=== PATIENT | female | born 1960 | race Caucasian/White ===

== ENCOUNTER 2017-06-16 13:00 | Observation (INO) | payer MEDICARE, OTHER ==
[2017-06-16] MEDS ORDERED: ASPIRIN 81 MG TABLET, CHEWABLE PO ONE (13:25)
[2017-06-16 13:50] LABS: ABSOLUTE EOSINOPHILS # (AUTO) 0.1 10^3/uL (0.0-0.6); ABSOLUTE LYMPHOCYTES (AUTO) 1.7 10^3/uL (0.5-4.7); ABSOLUTE MONOCYTES (AUTO) 0.4 10^3/uL (0.1-1.4); ABSOLUTE NEUT (AUTO) 3.3 10^3/uL (1.7-8.2); BASOPHILS % (AUTO) 0.8 % (0-2); EOSINOPHILS % (AUTO) 1.6 % (0-6); HEMATOCRIT 37.4 % (36.0-47.0); HGB HCT DIFFERENCE 1.6; LYMPHOCYTES % (AUTO) 30.9 % (13-45); MEAN CORPUSCULAR HEMOGLOBIN 31.3 pg (27.0-33.4); MEAN CORPUSCULAR HGB CONC 34.8 g/dL (32.0-36.0); MEAN CORPUSCULAR VOLUME 90 fl (80-97); MONOCYTES % (AUTO) 6.6 % (3-13); RED BLOOD COUNT 4.17 10^6/uL (3.72-5.28); RED CELL DISTRIBUTION WIDTH 12.6 % (11.5-14.0); SEGMENTED NEUTROPHILS % (AUTO) 60.1 % (42-78); WHITE BLOOD COUNT 5.6 10^3/uL (4.0-10.5)
[2017-06-16 14:02] LABS: ALANINE AMINOTRANSFERASE 21 U/L (9-52); ALKALINE PHOSPHATASE 125 U/L (38-126); ANION GAP 8 (5-19); ASPARTATE AMINO TRANSFERASE 21 U/L (14-36); BILIRUBIN,DIRECT 0.3 mg/dL (0.0-0.4); BILIRUBIN,TOTAL 1.4 mg/dL (0.2-1.3); BLOOD UREA NITROGEN 9 mg/dL (7-20); CALCIUM 9.4 mg/dL (8.4-10.2); CARBON DIOXIDE 26 mmol/L (22-30); CHLORIDE 105 mmol/L (98-107); CREATINE KINASE 48 U/L (30-135); GLUCOSE 90 mg/dL (75-110); SODIUM 138.8 mmol/L (137-145); TOTAL PROTEIN 7.3 g/dL (6.3-8.2)
--- NOTE | 2017-06-16 14:02 | RADIOLOGY REPORT (SQ) ---
EXAM DESCRIPTION: CHEST SINGLE VIEW COMPLETED DATE/TIME: 06/16/2017 1:45 pm REASON FOR STUDY: pain COMPARISON: None. EXAM PARAMETERS: NUMBER OF VIEWS: One view. TECHNIQUE: Single frontal radiographic view of the chest acquired. RADIATION DOSE: NA LIMITATIONS: None. FINDINGS: LUNGS AND PLEURA: No opacities, masses or pneumothorax. No pleural effusion. MEDIASTINUM AND HILAR STRUCTURES: Retrocardiac hiatal hernia. Hilar Contour normal. HEART AND VASCULAR STRUCTURES: Heart normal in size. Normal vasculature. BONES: No acute findings. HARDWARE: Clips right upper quadrant post cholecystectomy OTHER: No other significant finding. IMPRESSION: NO ACUTE RADIOGRAPHIC FINDING IN THE CHEST. TECHNICAL DOCUMENTATION: JOB ID: [id number]
[2017-06-16 14:15] LABS: CREATINE KINASE MB < 0.22 ng/mL (<4.55); TROPONIN I < 0.012 ng/mL
--- NOTE | 2017-06-16 15:08 | ER Document Report ---
ED General - General Chief Complaint: Chest Pain Stated Complaint: ARM PAIN Time Seen by Provider: 06/16/17 13:45 Mode of Arrival: Ambulatory Information source: Patient Notes: 57 yr old female presents wiht hx of NV after epi was given IV in 2012 with no cardiac intervention post cath presents with left sided chest achiness down the left arm of 3 day duraiton. symptoms not improved with alleve , not worsend with movement TRAVEL OUTSIDE OF THE [place] IN LAST 30 DAYS: No - HPI Onset: Other Onset/Duration: Persistent Quality of pain: Achy Severity: Mild Pain Level: 1 Associated symptoms: Chest pain Exacerbated by: Denies Relieved by: Denies Similar symptoms previously: No Recently seen / treated by doctor: No - Related Data Allergies/Adverse Reactions: codeine Allergy (Verified 06/16/17 13:05) hydromorphone [From Dilaudid] Allergy (Verified 06/16/17 13:05) morphine Allergy (Verified 06/16/17 13:05) polyethylene glycol [From Golytely] Allergy (Verified 06/16/17 13:05) polyethylene glycol 3350 [From Golytely] Allergy (Verified 06/16/17 13:05) potassium chloride [From Golytely] Allergy (Verified 06/16/17 13:05) sodium [From Golytely] Allergy (Verified 06/16/17 13:05) sodium bicarbonate [From Golytely] Allergy (Verified 06/16/17 13:05) sodium chloride [From Golytely] Allergy (Verified 06/16/17 13:05) sodium sulfate [From Golytely] Allergy (Verified 06/16/17 13:05) tramadol Allergy (Verified 06/16/17 13:05) Home Medications: Current Home Medications Aripiprazole [Abilify 5 mg Tablet] 5 mg PO DAILY 06/16/17 [History] Benztropine Mesylate 1 mg PO DAILY 06/16/17 [History] Bupropion HCl [Wellbutrin Xl 150 mg 24hr Tablet] 1 tab PO DAILY 06/16/17 [ History] Esomeprazole Magnesium [Nexium] 40 mg PO DAILY 06/16/17 [History] Zolpidem Tartrate [Ambien] 10 mg PO QHS 06/16/17 [History] Past Medical History - Social History Smoking Status: Never Smoker Cigarette use (# per day): No Chew tobacco use (# tins/day): No Smoking Education Provided: No Family History: Reviewed & Not Pertinent - Past Medical History Cardiac Medical History: Reports: Hx Heart Attack Renal/ Medical History: Denies: Hx Peritoneal Dialysis Review of Systems - Review of Systems Notes: REVIEW OF SYSTEMS: CONSTITUTIONAL : Denies fever, chills, or sweats. Denies recent illness. EENT: Denies eye, ear, throat, or mouth pain or symptoms. Denies nasal or sinus congestion or discharge. Denies throat, tongue, or mouth swelling or difficulty swallowing. CARDIOVASCULAR: Admits to chest pain RESPIRATORY: Denies cough, cold, or chest congestion. Denies shortness of breath, difficulty breathing, or wheezing. GASTROINTESTINAL: Denies abdominal pain or distention. Denies nausea, vomiting , or diarrhea. Denies blood in vomitus, stools, or per rectum. Denies black, tarry stools. Denies constipation. GENITOURINARY: Denies difficulty urinating, painful urination, burning, frequency, blood in urine, or discharge. FEMALE GENITOURINARY: Denies vaginal bleeding, heavy or abnormal periods, irregular periods. Denies vaginal discharge or odor. MUSCULOSKELETAL: Denies back or neck pain or stiffness. Denies joint pain or swelling. SKIN: Denies rash, lesions or sores. HEMATOLOGIC : Denies easy bruising or bleeding. LYMPHATIC: Denies swollen, enlarged glands. NEUROLOGICAL: Denies confusion or altered mental status. Denies passing out or loss of consciousness. Denies dizziness or lightheadedness. Denies headache. Denies weakness or paralysis or loss of use of either side. Denies problems with gait or speech. Denies sensory loss, numbness, or tingling. Denies seizures. PSYCHIATRIC: Denies anxiety or stress. Denies depression, suicidal ideation, or homicidal ideation. ALL OTHER SYSTEMS REVIEWED AND NEGATIVE. PHYSICAL EXAMINATION: GENERAL: Well-appearing, well-nourished and in no acute distress. HEAD: Atraumatic, normocephalic. EYES: Pupils equal round and reactive to light, extraocular movements intact, conjunctiva are normal. ENT: Nares patent, oropharynx clear without exudates. Moist mucous membranes. NECK: Normal range of motion, supple without lymphadenopathy LUNGS: Breath sounds clear to auscultation bilaterally and equal. No wheezes rales or rhonchi. HEART: Regular rate and rhythm without murmurs ABDOMEN: Soft, nontender, nondistended abdomen. No guarding, no rebound. No masses appreciated. Female : deferred Musculoskeletal: Normal range of motion, no pitting or edema. No cyanosis. NEUROLOGICAL: Cranial nerves grossly intact. Normal speech, normal gait. Normal sensory, motor exams PSYCH: Normal mood, normal affect. SKIN: Warm, Dry, normal turgor, no rashes or lesions noted. Dictation was performed using [employer] voice recognition software Physical Exam - Vital signs Vitals: Temp Pulse Resp BP Pulse Ox 98.4 F 76 14 121/78 97 06/16/17 13:03 06/16/17 13:03 06/16/17 13:03 06/16/17 13:03 06/16/17 13:03 Course - Re-evaluation Re-evalutation: 06/16/17 15:12 For set of cardiac enzymes EKG lab work note no significant abnormality, patient will be observed overnight for ACS rule out - Vital Signs Vital signs: Temp Pulse Resp BP Pulse Ox 98.4 F 76 14 121/78 94 06/16/17 13:03 06/16/17 13:03 06/16/17 13:03 06/16/17 13:03 06/16/17 14:04 - Laboratory Result Diagrams: 06/16/17 13:36 06/16/17 13:36 Laboratory results interpreted by me: 06/16/17 13:36 Total Bilirubin 1.4 H - Diagnostic Test Radiology reviewed: Image reviewed, Reports reviewed - EKG Interpretation by Ma EKG shows normal: Sinus rhythm, Intervals, QRS Complexes, ST-T Waves Discharge - Discharge Clinical Impression: Chest pain Qualifiers: Chest pain type: unspecified Qualified Code(s): R07.9 - Chest pain, unspecified Condition: Stable Disposition: ADMITTED OBSERVATION Admitting Provider: Hospitalist Unit Admitted: Telemetry Referrals: MELVA GUDINO MD [Primary Care Provider] - Follow up as needed
[2017-06-16] MEDS ORDERED: MAG HYDROX/AL HYDROX/SIMETH SUSP 30 ML UDCUP PO PRN (16:14)
[2017-06-16] MEDS ORDERED: NITROGLYCERIN 0.4 MG/TAB 25 TAB/BOTTLE SL PRN (16:14)
[2017-06-16] MEDS ORDERED: DIAZEPAM 5 MG TABLET PO PRN (16:14)
[2017-06-16] MEDS ORDERED: ONDANSETRON 4 MG TAB.RAPDIS PO PRN (16:14)
--- NOTE | 2017-06-16 16:40 | PDOC H&P ---
History of Present Illness Admission Date/PCP: 06/16/17 15:20 MELVA GUDINO MD History of Present Illness: ZAHRA PETERSON is a 57 year old female with a past medical history significant for a stress-induced VT, PTSD, hiatal hernia who presents to the emergency department with approximately 3 days of achy chest pain. Patient reports that it is underneath her left breast and radiates to her left arm. She reports no associated shortness of breath, diaphoresis. patient did report an episode of nausea and vomiting yesterday with this. She reports that there are no aggravating or alleviating factors. She reports she took several Aleve but did not have any improvement of her pain. She denies any metallic taste in her mouth. She reports taking Nexium daily for GERD. She is referred to hospital service for chest pain. Past Medical History Cardiac Medical History: Reports: Myocardial Infarction Pulmonary Medical History: Reports: Sleep Apnea Psychiatric Medical History: Reports: Post Traumatic Stress Disorder Past Surgical History Past Surgical History: Reports: Appendectomy, Cholecystectomy, Orthopedic Surgery, Other - Panniculectomy, carpal tunnel 2, shoulder surgery 2, bladder sling, spine Social History Smoking Status: Never Smoker - Advance Directive Resuscitation Status: Full Code Surrogate healthcare decision maker:: Angel Peterson, Family History Family History: CAD, DM Parental Family History Reviewed: Yes Children Family History Reviewed: Yes Sibling(s) Family History Reviewed.: Yes Medication/Allergy Home Medications: Aripiprazole [Abilify 5 mg Tablet] 5 mg PO DAILY 06/16/17 Benztropine Mesylate 1 mg PO DAILY 06/16/17 Bupropion HCl [Wellbutrin Xl 150 mg 24hr Tablet] 1 tab PO DAILY 06/16/17 Esomeprazole Magnesium [Nexium] 40 mg PO DAILY 06/16/17 Zolpidem Tartrate [Ambien] 10 mg PO QHS 06/16/17 Allergies/Adverse Reactions: codeine Allergy (Verified 06/16/17 13:05) hydromorphone [From Dilaudid] Allergy (Verified 06/16/17 13:05) morphine Allergy (Verified 06/16/17 13:05) polyethylene glycol [From Golytely] Allergy (Verified 06/16/17 13:05) polyethylene glycol 3350 [From Golytely] Allergy (Verified 06/16/17 13:05) potassium chloride [From Golytely] Allergy (Verified 06/16/17 13:05) sodium [From Golytely] Allergy (Verified 06/16/17 13:05) sodium bicarbonate [From Golytely] Allergy (Verified 06/16/17 13:05) sodium chloride [From Golytely] Allergy (Verified 06/16/17 13:05) sodium sulfate [From Golytely] Allergy (Verified 06/16/17 13:05) tramadol Allergy (Verified 06/16/17 13:05) Review of Systems Constitutional: PRESENT: chills, fatigue. ABSENT: fever(s), headache(s), weight gain, weight loss Eyes: ABSENT: visual disturbances Ears: ABSENT: hearing changes Cardiovascular: PRESENT: chest pain. ABSENT: dyspnea on exertion, edema, orthropnea, palpitations Respiratory: PRESENT: cough, sputum. ABSENT: dyspnea, hemoptysis Gastrointestinal: PRESENT: heartburn, nausea, vomiting. ABSENT: abdominal pain , constipation, diarrhea, hematemesis, hematochezia, melena Genitourinary: ABSENT: dysuria, hematuria Musculoskeletal: ABSENT: joint swelling Integumentary: ABSENT: rash, wounds Neurological: ABSENT: abnormal gait, abnormal speech, confusion, dizziness, focal weakness, syncope Psychiatric: ABSENT: anxiety, depression, homidical ideation, suicidal ideation Endocrine: ABSENT: cold intolerance, heat intolerance, polydipsia, polyuria Hematologic/Lymphatic: ABSENT: easy bleeding, easy bruising Physical Exam Vital Signs: Temp Pulse Resp BP Pulse Ox 98.4 F 76 17 110/74 98 06/16/17 13:03 06/16/17 13:03 06/16/17 16:01 06/16/17 16:00 06/16/17 16:01 General appearance: PRESENT: obese, well-developed, well-nourished Head exam: PRESENT: atraumatic, normocephalic Eye exam: PRESENT: conjunctiva pink, EOMI, PERRLA. ABSENT: scleral icterus Ear exam: PRESENT: normal external ear exam Mouth exam: PRESENT: moist, tongue midline Neck exam: ABSENT: JVD, lymphadenopathy, thyromegaly, tracheal deviation Respiratory exam: PRESENT: clear to auscultation ana rosa, symmetrical, unlabored. ABSENT: crackles, rales, rhonchi, tachypnea, wheezes Cardiovascular exam: PRESENT: RRR, +S1, +S2. ABSENT: diastolic murmur, rubs, systolic murmur Pulses: PRESENT: normal dorsalis pedis pul Vascular exam: PRESENT: normal capillary refill GI/Abdominal exam: PRESENT: normal bowel sounds, soft. ABSENT: distended, firm , guarding, mass, Lowery's sign, organolmegaly, rebound, rigid, tenderness Rectal exam: PRESENT: deferred Extremities exam: PRESENT: full ROM. ABSENT: calf tenderness, clubbing, pedal edema Neurological exam: PRESENT: alert, awake, oriented to person, oriented to place , oriented to time, oriented to situation, CN II-XII grossly intact. ABSENT: motor sensory deficit Psychiatric exam: PRESENT: appropriate affect, normal mood. ABSENT: homicidal ideation, suicidal ideation Skin exam: PRESENT: dry, intact, warm. ABSENT: cyanosis, rash Results Laboratory Results: 06/16/17 06/16/17 06/16/17 13:36 13:36 13:36 WBC 5.6 Hgb 13.0 Potassium 4.0 BUN 9 Creatinine 0.80 Total Bilirubin 1.4 H Troponin I < 0.012 Impressions: Chest X-Ray 06/16/17 13:25 IMPRESSION: NO ACUTE RADIOGRAPHIC FINDING IN THE CHEST. Assessment & Plan - Diagnosis (1) Chest pain Qualifiers: Chest pain type: unspecified Qualified Code(s): R07.9 - Chest pain, unspecified Is this a current diagnosis for this admission?: Yes Plan: Place on telemetry and preform serial cardiac enzymes. Obtain CTA to rule out PE Suspect possible pneumonia or musculoskeletal cause of chest pain As patient is caring for her who has advanced cancer. Stress is also a consideration. Obtain FLP. (2) PTSD (post-traumatic stress disorder) Is this a current diagnosis for this admission?: Yes Plan: Continue patient's home psychiatric medications (3) Hiatal hernia Is this a current diagnosis for this admission?: Yes Plan: Continue PPI (4) RAFAEL (obstructive sleep apnea) Is this a current diagnosis for this admission?: Yes Plan: Patient may use own cpap (5) GERD (gastroesophageal reflux disease) Qualifiers: Esophagitis presence: esophagitis presence not specified Qualified Code(s) : K21.9 - Gastro-esophageal reflux disease without esophagitis Is this a current diagnosis for this admission?: Yes - Time Time Spent: 30 to 50 Minutes Medications reviewed and adjusted accordingly: Yes Anticipated discharge: Home Within: within 24 hours
--- NOTE | 2017-06-16 17:19 | RADIOLOGY REPORT (SQ) ---
EXAM DESCRIPTION: CT CHEST WITHOUT COMPLETED DATE/TIME: 06/16/2017 5:10 pm REASON FOR STUDY: chest pain, E78.4 OTHER HYPERLIPIDEMIA COMPARISON: None. TECHNIQUE: CT scan performed of the chest without intravenous contrast. Images reviewed with lung, soft tissue and bone windows. Reconstructed coronal and sagittal MPR images reviewed. All images st ored on PACS. All CT scanners at this facility use dose modulation, iterative reconstruction, and/or weight based d osing when appropriate to reduce radiation dose to as low as reasonably achievable (ALARA). [facility]: Dose Right [facility]: CareDose [facility]: Dose Right [facility]: Teradose 4D [facility]: Smart Onset Technology RADIATION DOSE: Up-to-date CT equipment and radiation dose reduction techniques were employed. CTDIv ol: 17.3 mGy. DLP: 703 mGy-cm. mGy. LIMITATIONS: No technical limitations. FINDINGS: LUNGS AND PLEURA: No masses, infiltrates, pneumothorax. No pleural effusions, calcificati ons. HILAR AND MEDIASTINAL STRUCTURES: No identified masses or abnormal nodes. No obvious aneurysm. HEART AND VASCULAR STRUCTURES: No aneurysm. No pericardial effusion. UPPER ABDOMEN: No significant findings. Limited exam. THYROID AND OTHER SOFT TISSUES: No masses. No adenopathy. BONES: No significant finding. HARDWARE: None in the chest. OTHER: There is a hiatal hernia. IMPRESSION: NO SIGNIFICANT FINDING ON NON-CONTRASTED CHEST CT. TECHNICAL DOCUMENTATION: JOB ID: [id number] Quality ID # [id number]: Final reports with documentation of one or more dose reduction techniques (e.g., Au tomated exposure control, adjustment of the mA and/or kV according to patient size, use of iterative reconstruction technique) 2010 [employer]- All Rights Reserved
[2017-06-16] MEDS: METOPROLOL TARTRATE PF/INJ 5 MG/5 ML SDV IV PRN ×2 (18:39→18:48)
[2017-06-16] MEDS ORDERED: METOPROLOL TARTRATE PF/INJ 5 MG/5 ML SDV IV PRN (18:51)
[2017-06-16] MEDS: LANSOPRAZOLE 30 MG TAB.RAP.DR PO SCH (18:52)
[2017-06-16 20:38] LABS: CREATINE KINASE MB < 0.22 ng/mL (<4.55); TROPONIN I < 0.012 ng/mL
[2017-06-16] MEDS ORDERED: ATORVASTATIN CALCIUM 40 MG TABLET PO SCH (22:00)
[2017-06-16] MEDS ORDERED: ZOLPIDEM TARTRATE 5 MG TABLET PO SCH (22:00)
[2017-06-16 23:16] LABS: CREATINE KINASE MB < 0.22 ng/mL (<4.55); TROPONIN I < 0.012 ng/mL
[2017-06-17 05:10] LABS: CHOLESTEROL 169.71 mg/dL (0-200); CREATINE KINASE 36 U/L (30-135); Direct HDL 36 mg/dL (>40); TRIGLYCERIDES 111 mg/dL (<150)
[2017-06-17 05:21] LABS: DIRECT LDL 108 mg/dL (<100)
[2017-06-17 05:26] LABS: CREATINE KINASE MB < 0.22 ng/mL (<4.55); TROPONIN I < 0.012 ng/mL
[2017-06-17] MEDS: LANSOPRAZOLE 30 MG TAB.RAP.DR PO SCH (06:36)
[2017-06-17] MEDS ORDERED: NORMAL SALINE 1000 ML 1,000 ML IV ONE (07:21)
--- NOTE | 2017-06-17 07:44 | EKG REPORT ---
SEVERITY:- NORMAL ECG - SINUS RHYTHM : Confirmed by: Adolfo Salinas MD 17-Jun-2017 07:44:00
--- NOTE | 2017-06-17 07:45 | EKG REPORT ---
SEVERITY:- NORMAL ECG - SINUS RHYTHM : Confirmed by: Adolfo Salinas MD 17-Jun-2017 07:44:10
[2017-06-17] MEDS ORDERED: BENZTROPINE MESYLATE 1 MG TABLET PO SCH (10:00)
[2017-06-17] MEDS ORDERED: (PENDING PHARMACY ID) (Bupropion Hcl [Wellbutrin Xl 150 Mg 24hr Tablet] 1 TAB) PO SCH (10:00)
[2017-06-17] MEDS ORDERED: BUPROPION HCL 75 MG TABLET PO SCH (10:00)
[2017-06-17] MEDS ORDERED: ASPIRIN 325 MG TABLET, ENT COATED PO SCH (10:00)
[2017-06-17] MEDS ORDERED: ARIPIPRAZOLE 5 MG TABLET PO SCH (10:00)
[2017-06-17 11:11] VITALS: BP 114/76
--- NOTE | 2017-06-17 16:27 | PDOC DISCHARGE SUMMARY ---
General - Admit/Disc Date/PCP Admission Date/Primary Care Provider: 06/16/17 16:14 MELVA GUDINO MD Discharge Date: 06/17/17 - Discharge Diagnosis (1) Chest pain Is this a current diagnosis for this admission?: Yes (2) PTSD (post-traumatic stress disorder) Is this a current diagnosis for this admission?: Yes (3) Hiatal hernia Is this a current diagnosis for this admission?: Yes (4) RAFAEL (obstructive sleep apnea) Is this a current diagnosis for this admission?: Yes (5) GERD (gastroesophageal reflux disease) Is this a current diagnosis for this admission?: Yes (6) Morbid (severe) obesity due to excess calories Is this a current diagnosis for this admission?: Yes - Additional Information Resuscitation Status: Full Code Discharge Diet: Cardiac Discharge Activity: Activity As Tolerated Home Medications: Esomeprazole Magnesium [Nexium] 40 mg PO DAILY 06/16/17 Aripiprazole [Abilify 5 mg Tablet] 5 mg PO DAILY tablet 06/17/17 Atorvastatin Calcium [Lipitor 40 mg Tablet] 40 mg PO QHS #30 tablet 06/17/17 Benztropine Mesylate [Cogentin 1 mg Tablet] 1 mg PO DAILY tablet 06/17/17 Bupropion HCl [Wellbutrin Xl 150 mg 24hr Tablet] 1 tab PO DAILY 06/17/17 Zolpidem Tartrate [Ambien 5 mg Tablet] 10 mg PO QHS tablet 06/17/17 History of Present Illness History of Present Illness: ZAHRA MCGOWAN is a 57 year old female with a past medical history significant for a stress-induced LA, PTSD, hiatal hernia who presents to the emergency department with approximately 3 days of achy chest pain. Patient reports that it is underneath her left breast and radiates to her left arm. She reports no associated shortness of breath, diaphoresis. patient did report an episode of nausea and vomiting yesterday with this. She reports that there are no aggravating or alleviating factors. She reports she took several Aleve but did not have any improvement of her pain. She denies any metallic taste in her mouth. She reports taking Nexium daily for GERD. She is referred to hospital service for chest pain. Hospital Course Hospital Course: Patient had no worsening of her chest pain. Observed for ACS and ruled out with 4 sets of negative enzymes. Reports she feels better after a good nights sleep. CTA negative for PE or pleural process. Have advised her to increase her nexium to bid and follow with her PCP re: anxiety and possible UGI workup and stress test. Physical Exam Vital Signs: Temp Pulse Resp BP Pulse Ox 98.0 F 74 21 H 114/76 99 06/17/17 11:09 06/17/17 11:09 06/17/17 11:09 06/17/17 11:09 06/17/17 11:09 Intake & Output 06/16/17 06/17/17 06/18/17 06:59 06:59 06:59 Intake Total 366 Output Total 0 Balance 366 Weight 107.2 kg Exam: General: Awake alert and oriented x3, no acute respiratory distress HEENT: AT/NC, PERRL, EOMI, oropharynx is moist, pink, no scleral icterus, no conjunctival injection Neck: No JVD, trachea midline Chest: Clear to auscultation bilaterally, no wheezes rhonchi or rales CV: Regular rate and rhythm, normal S1 and S2, no murmur, rub, or gallop Abdomen: Soft, nontender to palpation, nondistended, active bowel sounds; no rebound, rigidity, or guarding Extremities: No cyanosis, clubbing or edema Neuro: Cranial nerves II through XII are grossly intact without focal deficits; awake alert and oriented x3 Psych: Normal mood and affect Results Laboratory Results: 06/17/17 04:45 Triglycerides 111 Cholesterol 169.71 LDL Cholesterol Direct 108 H VLDL Cholesterol 22.0 HDL Cholesterol 36 L 06/16/17 06/16/17 06/17/17 19:45 22:45 04:45 Creatine Kinase CK-MB (CK-2) < 0.22 < 0.22 < 0.22 Troponin I < 0.012 < 0.012 < 0.012 06/17/17 04:45 Creatine Kinase 36 CK-MB (CK-2) Troponin I Impressions: Chest CT 06/16/17 00:00 IMPRESSION: NO SIGNIFICANT FINDING ON NON-CONTRASTED CHEST CT. Chest X-Ray 06/16/17 13:25 IMPRESSION: NO ACUTE RADIOGRAPHIC FINDING IN THE CHEST. Qualifiers PATEINT BEING DISCHARGED WITH ANY OF THE FOLLOWING DIAGNOSIS?: No Plan Time Spent: Less than 30 Minutes
== END 2017-06-17 11:28 | disposition home or self-care (01) ==
LOC: ER 13:00 → UNDOADMOB 15:20 → EH 15:20 → 3N 16:40
PROVIDERS: ADMIT Family Medicine; ATTEND Family Medicine
DX: R07.9 Chest pain, unspecified (principal); F43.10 Post-traumatic stress disorder, unspecified; K44.9 Diaphragmatic hernia without obstruction or gangrene; G47.33 Obstructive sleep apnea (adult) (pediatric); K21.9 Gastro-esophageal reflux disease without esophagitis; E66.01 Morbid (severe) obesity due to excess calories; R11.2 Nausea with vomiting, unspecified; I25.2 Old myocardial infarction; Z68.38 Body mass index [BMI] 38.0-38.9, adult; Z79.899 Other long term (current) drug therapy; Z90.49 Acquired absence of other specified parts of digestive tract; Z82.49 Family history of ischemic heart disease and other diseases of the circulatory system; Z98.890 Other specified postprocedural states
CPT/HCPCS: 93005 ×2; 99285; 36415 ×2; 82553 ×2; 82550 ×2; 85025; 80053; 84484 ×2; 80061; 71010; 71250; 93010 ×2; G0378 ×2; A9270 ×7; J3490 ×2; J7030; S0119

== ENCOUNTER 2017-07-10 09:30 | Day surgery (SDC) | payer MEDICARE, OTHER ==
[~2017-07-10 09:30] MED LIST: DIPHENHYDRAMINE HCL 50 MG/ML VIAL ONE; EPINEPHRINE INJ 1 MG/10 ML DISP.SYRIN ONE; FLUMAZENIL INJ 0.5 MG/5 ML VIAL ONE; GLUCAGON,HUMAN RECOMB 1 MG INJ ONE; NALOXONE HCL INJ/PF 0.4 MG/1 ML SDV ONE; ONDANSETRON HCL INJ/PF 4 MG/2 ML SDV ONE
[2017-07-10] MEDS: MIDAZOLAM 2 MG/2 ML INJ ONE ×3 (09:58→10:06)
[2017-07-10] MEDS: FENTANYL CITRATE INJ/PF 100 MCG/2 ML AMPUL ONE ×2 (10:00→10:04)
--- NOTE | 2017-07-10 10:16 | Operative Report ---
Operative Report DATE OF SURGERY: 07/10/17 Operative Report: The risks benefits and alternatives of the procedure explained to the patient in detail and informed consent is obtained.A GIF Olympus video scope was inserted into the patient's mouth and hypopharynx, the esophagus is identified intubated and insufflated, the scope was then advanced through the esophagus stomach and duodenum ,retroflexion maneuver is done, the esophagus stomach and first and second portions of the duodenum examined PREOPERATIVE DIAGNOSIS: Dysphagia POSTOPERATIVE DIAGNOSIS: Gastritis status post biopsy rule out Helicobacter pylori. Benign fundic gland polyps noted in the stomach. Hiatal hernia. Question possible paraesophageal hernia. Biopsies at the distal EG junction. Biopsy to break possible Schatzki's ring versus eosinophilic esophagitis OPERATION: EGD with biopsy SURGEON: TAVO DOUGLAS ANESTHESIA: Moderate Sedation - 6 mg of Versed, 100 mcg of fentanyl. Conscious sedation monitoring time 30 minutes. TISSUE REMOVED OR ALTERED: As noted above. COMPLICATIONS: None. ESTIMATED BLOOD LOSS: None. INTRAOPERATIVE FINDINGS: As described above. PROCEDURE: Patient tolerated the procedure well. No immediate postprocedure complications are noted. Patient discharged in good condition. Discharge date 07/10/2017. Discharge diet: Regular. Discharge activity: Regular. 2-3 week follow-up to discuss findings. Patient is instructed to call the office or proceed to the emergency room should there be any further problems or questions. We will wait on biopsies. May need barium swallow/upper GI series.
[2017-07-10 11:27] VITALS: BP 92/65
== END 2017-07-10 11:20 | disposition home or self-care (01) ==
LOC: END 09:30
PROVIDERS: ATTEND Internal Medicine Gastroenterology
PROC: 0DB58ZX Excision of Esophagus, Via Natural or Artificial Opening Endoscopic, Diagnostic (ICD-10-PCS; 2017-07-10)
PROC: 0DB68ZX Excision of Stomach, Via Natural or Artificial Opening Endoscopic, Diagnostic (ICD-10-PCS; principal; 2017-07-10 10:00)
DX: K29.70 Gastritis, unspecified, without bleeding (principal); K44.9 Diaphragmatic hernia without obstruction or gangrene; K31.7 Polyp of stomach and duodenum; R07.9 Chest pain, unspecified; Z79.82 Long term (current) use of aspirin; Z79.899 Other long term (current) drug therapy
CPT/HCPCS: 43239; 88305 ×2; J2250; J3010; J0171; J1200; J1610; J2310; J2405; J3490

== ENCOUNTER → 2017-09-14 | Outpatient (CLI) | payer MEDICARE, OTHER ==
--- NOTE | 2017-09-14 10:57 | RADIOLOGY REPORT (SQ) ---
EXAM DESCRIPTION: UGI SERIES COMPLETED DATE/TIME: 09/14/2017 9:11 am REASON FOR STUDY: BASW DIAPHRAGMATIC HERNIA WITH OBSTRUCTION, WITHOUT GANGRENE (K44.0) K44.0 DI APHRAGMATIC HERNIA WITH OBSTRUCTION, WITHOUT GANGREN COMPARISON: CT chest 06/16/2017 TECHNIQUE: Under fluoroscopic guidance, patient ingested effervescent granules followed by thick and thin barium. Fluoroscopic spot images and routine radiographic images acquired and stored on PACS. 12 MM BARIUM TABLET GIVEN: Yes. LIMITATIONS: None. FLUOROSCOPY TIME: FLUORO TIME: 1.1 minutes 24 series of digital images saved to PACS. FINDINGS: NEUROMUSCULAR COORDINATION OF SWALLOW: Normal. No aspiration. ESOPHAGEAL MOTILITY: Normal peristalsis. Occasional tertiary contractions of the esophagus. ESOPHAGEAL MUCOSA: Normal mucosa without masses or ulceration. GASTRO-ESOPHAGEAL JUNCTION: There is a a a large hiatal hernia containing the stomach fundus. Unprov oked gastroesophageal reflux to the mid esophagus. No Schatzki's ring or distal esophageal stricture . 12 mm barium tablet passes through the distal esophagus into the fundal pouch, and then into the s tomach without delay. STOMACH: Normal without masses or ulcerations. GASTRIC OUTLET: No delay in emptying. Normal pylorus. DUODENAL BULB: Normal distention. No spasm or ulceration. DUODENUM: Mucosa normal. No extrinsic masses or malrotation. PROXIMAL SMALL BOWEL: Mucosa normal. No extrinsic masses or malrotation. NON-GI TRACT STRUCTURES: Clips right upper quadrant post cholecystectomy. Bones osteopenic without t horacic compression deformity. OTHER: No other significant finding. IMPRESSION: Large retrocardiac hiatal hernia containing the stomach fundus. Gastroesophageal reflux to the mid 3rd of the esophagus. No Schatzki's ring or distal esophageal stricture. Occasional tertiary contractions of the esophagus COMMENT: Quality ID [id number]: Final reports for procedures using fluoroscopy that document radiation exp osure indices, or exposure time and number of fluorographic images (if radiation exposure indices are not available) TECHNICAL DOCUMENTATION: JOB ID: [id number] [employer]- All Rights Reserved
== END ==
LOC: RAD 07:08
PROVIDERS: ATTEND Internal Medicine Gastroenterology
DX: K44.9 Diaphragmatic hernia without obstruction or gangrene (principal); K21.9 Gastro-esophageal reflux disease without esophagitis
CPT/HCPCS: 74247

== ENCOUNTER 2018-04-24 08:43 | Day surgery (SDC) | payer MEDICARE, OTHER ==
[2018-04-24] MEDS ORDERED: PROPOFOL INJ 200 MG/20 ML VIAL IV ONE (11:37)
--- NOTE | 2018-04-24 13:01 | Operative Report ---
Operative Report DATE OF SURGERY: 04/24/18 Operative Report: The risks, benefits and alternatives of the procedure including risks of bleeding, perforation requiring surgery are explained to the patient in detail and informed consent is obtained. The patient was placed in the left, lateral decubital position. Timeout was called. Propofol medication is administered. A rectal examination is done which did not reveal any masses, tears or fissures. An Olympus videoscope was inserted into the patient's rectum. The scope was then carefully advanced all the way to the cecum. The cecum was identified by the usual anatomical landmarks including the ileocecal valve as well as the appendiceal office. Photodocumentation is obtained. The scope was then sequentially pulled back via the various segments of the colon including the ascending colon, hepatic flexure, transverse colon, splenic flexure, descending colon and finally into the rectosigmoid portions of the colon. Retroflexion maneuvers performed. The risks benefits and alternatives of the procedure explained to the patient in detail and informed consent is obtained.A GIF Olympus video scope was inserted into the patient's mouth and hypopharynx, the esophagus is identified intubated and insufflated, the scope was then advanced through the esophagus stomach and duodenum ,retroflexion maneuver is done, the esophagus stomach and first and second portions of the duodenum examined PREOPERATIVE DIAGNOSIS: Previous paraesophageal hernia that has been repaired patient with left upper quadrant pain. Change in bowel habits surveillance colonoscopy. POSTOPERATIVE DIAGNOSIS: Patient has had an anastomotic site in the rectosigmoid area that appears to be normal. Right side colon biopsy status post biopsy. Repair of paraesophageal hernia now with Chayo fundoplication. Gastritis status post biopsy rule out Helicobacter pylori OPERATION: Colonoscopy with biopsy. EGD with biopsy SURGEON: TAVO DOUGLAS ANESTHESIA: LMAC TISSUE REMOVED OR ALTERED: As noted above. COMPLICATIONS: None. ESTIMATED BLOOD LOSS: None. INTRAOPERATIVE FINDINGS: As noted above. PROCEDURE: Patient tolerated the procedure well. No immediate postprocedure complications are noted. Patient discharged in good condition. Discharge date 04/24/2018. Discharge diet: Regular. Discharge activity: Regular. 2-3 week follow-up to discuss findings. Patient is instructed to call the office or proceed to the emergency room should there be any further problems or questions. Wait on the pathology.
[2018-04-24 13:48] VITALS: BP 105/60
== END 2018-04-24 13:45 | disposition home or self-care (01) ==
LOC: OROUT 08:43
PROVIDERS: ATTEND Internal Medicine Gastroenterology
DX: Z12.11 Encounter for screening for malignant neoplasm of colon (principal); Z86.010 Personal history of colon polyps; K29.50 Unspecified chronic gastritis without bleeding; K44.9 Diaphragmatic hernia without obstruction or gangrene; K21.9 Gastro-esophageal reflux disease without esophagitis; R63.4 Abnormal weight loss; Z68.31 Body mass index [BMI] 31.0-31.9, adult; Z79.899 Other long term (current) drug therapy; Z79.51 Long term (current) use of inhaled steroids
CPT/HCPCS: 43239; 45380; 88342 ×2; 88305 ×2; J2704; 813

== ENCOUNTER → 2018-05-30 | Day surgery (SDC) | payer MEDICARE, OTHER ==
--- NOTE | 2018-05-30 11:08 | RADIOLOGY REPORT (SQ) ---
EXAM DESCRIPTION: MRI LT UPPER JOINT WITH COMPLETED DATE/TIME: 05/30/2018 10:41 am REASON FOR STUDY: IMPINGEMENT SYNDROME OF THE LEFT SHOULDER M75.42 IMPINGEMENT SYNDROME OF LEFT HUNTER ULDER COMPARISON: None. TECHNIQUE: Left shoulder images acquired and stored on PACS. Oblique coronal, oblique sagittal, and axial imaging to include fat sensitive sequences as T1, water sensitive sequences as FST2/STIR, and c ontrast sensitive sequences as FST1. LIMITATIONS: None. FINDINGS: JOINT DISTENTION: Adequate distention for interpretation. There is leakage of intra-artic ular gadolinium into defect in the supraspinatus tendon, gadolinium fills the subacromial/subdeltoid bursa as well as the AC joint itself. BONE MARROW AND CORTEX: No marrow signal abnormalities worrisome for occult fracture or aggressive ma rrow replacement process. AC JOINT: Type II acromion. There is acromioclavicular joint separation, joint space measures about 1 0 to 11 mm in width. Contrast from the subacromial/subdeltoid bursa fills the AC joint on coronal im age 8. There is mild bony spurring at the AC joint with narrowing of the subacromial space. GLENOHUMERAL JOINT: No subluxation or dislocation. Mild diffuse chondromalacia with bony spurring al abigail the inferior edge of the root left humeral head articular surface. ROTATOR CUFF: Full-thickness tear in the distal supra and infraspinatus tendons at the greater tubero sity attachment, best shown on coronal images 7-11 and sagittal images 11-14. LABRUM AND BICEPS LABRAL COMPLEX: Intra-articular long head biceps tendon is diffuse which small on c oronal image 6, with postsurgical changes along the superior labrum. Remainder of the glenoid labrum is diffusely small and fragmented without significant paralabral cyst formation INFERIOR LABRAL COMPLEX: Bony glenoid and labrum intact. IGHL intact without thickening or tear. No p aralabral cysts. ADJACENT SOFT TISSUES: No masses or nodes. OTHER: No other significant finding. IMPRESSION: Full-thickness distal supra and infraspinatus tendon tear at the greater tuberosity gorge chment. No muscle atrophy. Acromioclavicular joint separation Prior long head biceps tendon and superior labral repair intact. Remainder of the glenoid labrum is diffusely small without paralabral cysts. TECHNICAL DOCUMENTATION: JOB ID: [id number] [employer]- All Rights Reserved Reading location - IP/workstation name: [email or web address]
--- NOTE | 2018-05-30 11:09 | RADIOLOGY REPORT (SQ) ---
EXAM DESCRIPTION: ARTHRO SHOULDER INJECTION; FLUORO/NEEDLE PLACEMENT COMPLETED DATE/TIME: 05/30/2018 10:15 am REASON FOR STUDY: IMPINGEMENT SYNDROME OF THE LEFT SHOULDER M75.42 IMPINGEMENT SYNDROME OF LEFT HUNTER ULDER COMPARISON: None. FLUOROSCOPY TIME: 10 seconds 1 digital radiographic image saved to PACS. LIMITATIONS: None. PROCEDURE: Procedure, risks, benefits and alternatives explained to patient who then gave written co nsent. The posterior left glenohumeral joint was marked and a time out was called for correct procedu re verification. Posterior entry site marked using fluoroscopic guidance. Shoulder prepped and drap ed using sterile technique. Local anesthesia achieved using 6 mL of 1% lidocaine injection. 22 gaug e spinal needle introduced into the joint space under direct fluoroscopic visualization. Non-ionic co ntrast instilled to confirm intra-articular position. Dilute gadolinium solution then injected. Need le removed and entry site covered with sterile bandage. No immediate complications noted. TECHNIQUE: Digital images acquired during fluoroscopy and stored on PACS. Patient immediately take n to the MR suite for additional imaging. INJECTION LOCATION: Posterior left glenohumeral joint CONTRAST TYPE AND AMOUNT: 1 mL of Isovue-300 was injected to confirm intra-articular needle placement followed by 10 mL of dilute Prohance/Saline mixture. IMPRESSION: SUCCESSFUL NEEDLE PLACEMENT AND INJECTION FOR LEFT SHOULDER MR ARTHROGRAM USING POSTERIO R APPROACH. COMMENT: Quality ID 145: Final reports for procedures using fluoroscopy that document radiation exp osure indices, or exposure time and number of fluorographic images (if radiation exposure indices are not available) TECHNICAL DOCUMENTATION: JOB ID: [id number] [employer]- All Rights Reserved Reading location - IP/workstation name: [facility]
--- NOTE | 2018-05-30 11:10 | RADIOLOGY REPORT (SQ) ---
EXAM DESCRIPTION: ARTHRO SHOULDER INJECTION; FLUORO/NEEDLE PLACEMENT COMPLETED DATE/TIME: 05/30/2018 10:15 am REASON FOR STUDY: IMPINGEMENT SYNDROME OF THE LEFT SHOULDER M75.42 IMPINGEMENT SYNDROME OF LEFT HUNTER ULDER COMPARISON: None. FLUOROSCOPY TIME: 10 seconds 1 digital radiographic image saved to PACS. LIMITATIONS: None. PROCEDURE: Procedure, risks, benefits and alternatives explained to patient who then gave written co nsent. The posterior left glenohumeral joint was marked and a time out was called for correct procedu re verification. Posterior entry site marked using fluoroscopic guidance. Shoulder prepped and drap ed using sterile technique. Local anesthesia achieved using 6 mL of 1% lidocaine injection. 22 gaug e spinal needle introduced into the joint space under direct fluoroscopic visualization. Non-ionic co ntrast instilled to confirm intra-articular position. Dilute gadolinium solution then injected. Need le removed and entry site covered with sterile bandage. No immediate complications noted. TECHNIQUE: Digital images acquired during fluoroscopy and stored on PACS. Patient immediately take n to the MR suite for additional imaging. INJECTION LOCATION: Posterior left glenohumeral joint CONTRAST TYPE AND AMOUNT: 1 mL of Isovue-300 was injected to confirm intra-articular needle placement followed by 10 mL of dilute Prohance/Saline mixture. IMPRESSION: SUCCESSFUL NEEDLE PLACEMENT AND INJECTION FOR LEFT SHOULDER MR ARTHROGRAM USING POSTERIO R APPROACH. COMMENT: Quality ID 145: Final reports for procedures using fluoroscopy that document radiation exp osure indices, or exposure time and number of fluorographic images (if radiation exposure indices are not available) TECHNICAL DOCUMENTATION: JOB ID: [id number] [employer]- All Rights Reserved Reading location - IP/workstation name: [facility]
== END ==
LOC: RAD 09:20
PROVIDERS: ATTEND Orthopaedic Surgery Sports Medicine
DX: M75.42 Impingement syndrome of left shoulder (principal)
CPT/HCPCS: 73222; 77002; 23350; A9576

== ENCOUNTER 2018-07-31 09:16 | Emergency (ER) | payer MEDICARE, OTHER ==
[2018-07-31 09:21] VITALS: BP 114/75
[2018-07-31] MEDS ORDERED: METHYLPREDNISOLONE ACETATE INJ 40 MG/1 ML ML IM ONE (09:52)
[2018-07-31] MEDS ORDERED: BUPIVACAINE HCL 0.75% INJ/PF (7.5 MG/1 ML) 10 ML SDV INJ ONE (09:52)
[2018-07-31] MEDS ORDERED: KETOROLAC TROMETHAMINE 60 MG/2 ML SDV IM ONE (09:52)
--- NOTE | 2018-07-31 09:59 | ER Document Report ---
ED Headache - General Chief Complaint: Headache Stated Complaint: HEAD PAINS Time Seen by Provider: 07/31/18 09:51 Mode of Arrival: Ambulatory Information source: Patient Notes: Chief complaint: Headache History of complain:( obtained from----patient) 58 years old female presents today with left upper cervical pain giving rise to frequent headache which is throbbing in nature radiating to the front to the forehead region. 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 No fever chills no focal weakness numbness tingling sensation. Denies any other constitutional symptoms Onset: Gradual Duration: Nearly a month Severity: Moderate to severe Quality: Sharp Context: As explained above Exacerbating factor and relieving factors: Movement of the neck REVIEW OF SYSTEMS: CONSTITUTIONAL : Denies fever, chills, or sweats. Denies recent illness. EENT: Denies eye, ear, throat, or mouth pain or symptoms. Denies nasal or sinus congestion or discharge. Denies throat, tongue, or mouth swelling or difficulty swallowing. CARDIOVASCULAR: Denies chest pain. Denies palpitations or racing or irregular heart beat. Denies ankle edema. RESPIRATORY: Denies cough, cold, or chest congestion. Denies shortness of breath, difficulty breathing, or wheezing. GASTROINTESTINAL: Denies distention. Denies nausea, vomiting, or diarrhea. Denies blood in vomitus, stools, or per rectum. Denies black, tarry stools. Denies constipation. GENITOURINARY: Denies difficulty urinating, painful urination, burning, frequency, blood in urine, or discharge. FEMALE GENITOURINARY: Denies vaginal bleeding, heavy or abnormal periods, irregular periods. Denies vaginal discharge or odor. MUSCULOSKELETAL: Denies back or neck pain or stiffness. Denies joint pain or swelling. SKIN: Denies rash, lesions or sores. HEMATOLOGIC : Denies easy bruising or bleeding. LYMPHATIC: Denies swollen, enlarged glands. NEUROLOGICAL: Denies confusion or altered mental status. Denies passing out or loss of consciousness. Denies dizziness or lightheadedness. Denies headache. Denies weakness or paralysis or loss of use of either side. Denies problems with gait or speech. Denies sensory loss, numbness, or tingling. Denies seizures. PSYCHIATRIC: Denies anxiety or stress. Denies depression, suicidal ideation, or homicidal ideation. ALL OTHER SYSTEMS REVIEWED AND NEGATIVE. PHYSICAL EXAMINATION: GENERAL: Well-appearing, well-nourished and in no acute distress. HEAD: Atraumatic, normocephalic. EYES: Pupils equal round and reactive to light, extraocular movements intact, conjunctiva are normal. ENT: Nares patent, oropharynx clear without exudates. Moist mucous membranes. Paraspinal muscles NECK: Normal range of motion, supple without lymphadenopathy, paraspinal muscles of the left side of the neck at the insertion to the scalp is sharply tender. LUNGS: Breath sounds clear to auscultation bilaterally and equal. No wheezes rales or rhonchi. HEART: Regular rate and rhythm without murmurs ABDOMEN: Soft, nontender, nondistended abdomen. No guarding, no rebound. No masses appreciated. Examination of genitals-deferred Musculoskeletal: Normal range of motion, no pitting or edema. No cyanosis. NEUROLOGICAL: Cranial nerves grossly intact. Normal speech, normal gait. Normal sensory, motor exams PSYCH: Normal mood, normal affect. SKIN: Warm, Dry, normal turgor, no rashes or lesions noted. Dictation was performed using [employer] voice recognition software TRAVEL OUTSIDE OF THE [place] IN LAST 30 DAYS: No - HPI Notes: Dictated - Related Data Allergies/Adverse Reactions: hydromorphone [From Dilaudid] Allergy (Severe, Verified 07/09/17 13:40) SOB,HEAVY CHEST polyethylene glycol [From Golytely] Allergy (Severe, Verified 07/09/17 13:40) Anaphylaxis polyethylene glycol 3350 [From Golytely] Allergy (Severe, Verified 07/09/17 13: 40) Anaphylaxis potassium chloride [From Golytely] Allergy (Severe, Verified 07/09/17 13:40) Anaphylaxis sodium [From Golytely] Allergy (Severe, Verified 07/09/17 13:40) Anaphylaxis sodium bicarbonate [From Golytely] Allergy (Severe, Verified 07/09/17 13:40) Anaphylaxis sodium chloride [From Golytely] Allergy (Severe, Verified 07/09/17 13:40) Anaphylaxis sodium sulfate [From Golytely] Allergy (Severe, Verified 07/09/17 13:40) Anaphylaxis tramadol Allergy (Severe, Verified 07/09/17 13:40) CONFUSION FOR 2 DAYS codeine Allergy (Intermediate, Verified 07/09/17 13:40) ITCHING, HIVES diphenhydramine [From Benadryl] Allergy (Intermediate, Verified 07/09/17 13:40) Hives morphine Allergy (Verified 07/09/17 11:56) Past Medical History - General Information source: Patient - Social History Smoking Status: Never Smoker Cigarette use (# per day): No Chew tobacco use (# tins/day): No Frequency of alcohol use: Rare Drug Abuse: None Lives with: Family Family History: CAD, DM - Past Medical History Cardiac Medical History: Reports: Hx Heart Attack - 2012 caused by epinephrine Denies: Hx Coronary Artery Disease, Hx Hypertension Pulmonary Medical History: Reports: Hx Sleep Apnea Denies: Hx Asthma, Hx Bronchitis, Hx COPD, Hx Pneumonia Neurological Medical History: Denies: Hx Cerebrovascular Accident, Hx Seizures Renal/ Medical History: Denies: Hx Peritoneal Dialysis Musculoskeletal Medical History: Denies Hx Arthritis Psychiatric Medical History: Reports: Hx Post Traumatic Stress Disorder Past Surgical History: Reports: Hx Appendectomy, Hx Cholecystectomy, Hx Orthopedic Surgery, Other - Panniculectomy, carpal tunnel 2, shoulder surgery 2, bladder sling, spine. Denies: Hx Hysterectomy - Immunizations Hx Diphtheria, Pertussis, Tetanus Vaccination: Yes Review of Systems - Review of Systems Notes: Dictated Physical Exam - Vital signs Vitals: Temp Pulse Resp BP Pulse Ox 98.9 F 73 15 114/75 93 07/31/18 09:20 07/31/18 09:20 07/31/18 09:20 07/31/18 09:20 07/31/18 09:20 - Notes Notes: Dictated Course - Re-evaluation Re-evalutation: 07/31/18 09:56 Given trigger point injection to the left upper cervical muscles - Vital Signs Vital signs: Temp Pulse Resp BP Pulse Ox 98.9 F 73 15 114/75 93 07/31/18 09:20 07/31/18 09:20 07/31/18 09:20 07/31/18 09:20 07/31/18 09:20 Procedures - Additional Procedures Trigger point Time performed: 10:10 - Trigger point injection to the left upper cervical muscles Notes: 07/31/18 09:57 Under aseptic condition using sterile technique after cleaning with alcohol at 40 mg of Depo-Medrol, 30 mg of Toradol, 3 cc of bupivacaine were mixed together and injected in the left upper cervical muscles tendons/ at the insertion to the skull. Post procedure was performed without any complications patient's headache was relieved. Discharge - Discharge Clinical Impression: Myalgia and myositis Acute cervical sprain Qualifiers: Encounter type: initial encounter Qualified Code(s): S13.9XXA - Sprain of joints and ligaments of unspecified parts of neck, initial encounter Headache Qualifiers: Headache type: tension-type Headache chronicity pattern: acute headache Intractability: not intractable Qualified Code(s): G44.209 - Tension-type headache, unspecified, not intractable Condition: Fair Disposition: HOME, SELF-CARE Instructions: Toradol Injection ([facility]), Headache ([facility]) Referrals: TIMOTHY GALLO MD [Primary Care Provider] - Follow up as needed
== END 2018-07-31 10:35 | disposition home or self-care (01) ==
LOC: ER 09:16
DX: S13.9XXA Sprain of joints and ligaments of unspecified parts of neck, initial encounter (principal); R51 Headache; M54.2 Cervicalgia; X58.XXXA Exposure to other specified factors, initial encounter; M60.9 Myositis, unspecified; Z87.892 Personal history of anaphylaxis; Z88.5 Allergy status to narcotic agent; Z88.8 Allergy status to other drugs, medicaments and biological substances
CPT/HCPCS: 99283; 20552; J3490; J1885; J1020

== ENCOUNTER → 2018-09-09 | Day surgery (SDC) | payer MEDICARE, OTHER ==
--- NOTE | 2018-09-09 14:52 | RADIOLOGY REPORT (SQ) ---
EXAM DESCRIPTION: FLUORO/NEEDLE PLACEMENT; ARTHRO SHOULDER INJECTION COMPLETED DATE/TIME: 09/09/2018 1:59 pm REASON FOR STUDY: RIGHT SHOULDER PAIN (M25.511) M25.511 PAIN IN RIGHT SHOULDER COMPARISON: None. FLUOROSCOPY TIME: 9 seconds 1 digital fluoroscopic image saved to PACS. LIMITATIONS: None. PROCEDURE: Procedure, risks, benefits and alternatives explained to patient who then gave written co nsent. The posterior right glenohumeral joint at the shoulder was marked and a time out was called fo r correct procedure verification. Posterior entry site marked using fluoroscopic guidance. Shoulder prepped and draped using sterile technique. Local anesthesia achieved using 8 mL of 1% lidocaine in jection. 22 gauge spinal needle introduced into the joint space under direct fluoroscopic visualizat ion. Non-ionic contrast instilled to confirm intra-articular position. Dilute gadolinium solution the n injected. Needle removed and entry site covered with sterile bandage. No immediate complications n oted. TECHNIQUE: Digital images acquired during fluoroscopy and stored on PACS. Patient immediately take n to the MR suite for additional imaging. INJECTION LOCATION: Posterior right glenohumeral joint CONTRAST TYPE AND AMOUNT: 1 mL of Omnipaque 300 was injected to confirm intra-articular needle placem ent. This was followed by injection of 10 mL of dilute Dotarem/Saline mixture. IMPRESSION: SUCCESSFUL NEEDLE PLACEMENT AND INJECTION FOR RIGHT SHOULDER MR ARTHROGRAM USING POSTERI OR APPROACH. COMMENT: Quality ID 145: Final reports for procedures using fluoroscopy that document radiation exp osure indices, or exposure time and number of fluorographic images (if radiation exposure indices are not available) TECHNICAL DOCUMENTATION: JOB ID: [id number] [employer]- All Rights Reserved Reading location - IP/workstation name: [facility]
--- NOTE | 2018-09-09 14:52 | RADIOLOGY REPORT (SQ) ---
EXAM DESCRIPTION: FLUORO/NEEDLE PLACEMENT; ARTHRO SHOULDER INJECTION COMPLETED DATE/TIME: 09/09/2018 1:59 pm REASON FOR STUDY: RIGHT SHOULDER PAIN (M25.511) M25.511 PAIN IN RIGHT SHOULDER COMPARISON: None. FLUOROSCOPY TIME: 9 seconds 1 digital fluoroscopic image saved to PACS. LIMITATIONS: None. PROCEDURE: Procedure, risks, benefits and alternatives explained to patient who then gave written co nsent. The posterior right glenohumeral joint at the shoulder was marked and a time out was called fo r correct procedure verification. Posterior entry site marked using fluoroscopic guidance. Shoulder prepped and draped using sterile technique. Local anesthesia achieved using 8 mL of 1% lidocaine in jection. 22 gauge spinal needle introduced into the joint space under direct fluoroscopic visualizat ion. Non-ionic contrast instilled to confirm intra-articular position. Dilute gadolinium solution the n injected. Needle removed and entry site covered with sterile bandage. No immediate complications n oted. TECHNIQUE: Digital images acquired during fluoroscopy and stored on PACS. Patient immediately take n to the MR suite for additional imaging. INJECTION LOCATION: Posterior right glenohumeral joint CONTRAST TYPE AND AMOUNT: 1 mL of Omnipaque 300 was injected to confirm intra-articular needle placem ent. This was followed by injection of 10 mL of dilute Dotarem/Saline mixture. IMPRESSION: SUCCESSFUL NEEDLE PLACEMENT AND INJECTION FOR RIGHT SHOULDER MR ARTHROGRAM USING POSTERI OR APPROACH. COMMENT: Quality ID 145: Final reports for procedures using fluoroscopy that document radiation exp osure indices, or exposure time and number of fluorographic images (if radiation exposure indices are not available) TECHNICAL DOCUMENTATION: JOB ID: [id number] [employer]- All Rights Reserved Reading location - IP/workstation name: [facility]
--- NOTE | 2018-09-09 15:32 | RADIOLOGY REPORT (SQ) ---
EXAM DESCRIPTION: MRI RT UPPER JOINT WITH COMPLETED DATE/TIME: 09/09/2018 2:02 pm REASON FOR STUDY: RIGHT SHOULDER PAIN (M25.511) M25.511 PAIN IN RIGHT SHOULDER COMPARISON: None. TECHNIQUE: Right shoulder images acquired and stored on PACS. Oblique coronal, oblique sagittal, and axial imaging to include fat sensitive sequences as T1, water sensitive sequences as FST2/STIR, and contrast sensitive sequences as FST1. LIMITATIONS: Foci of ferromagnetic artifact from old prior surgery FINDINGS: JOINT DISTENTION: Adequate distention for interpretation. No leakage of contrast into the subacromial/subdeltoid bursa. BONE MARROW AND CORTEX: No marrow signal abnormalities worrisome for occult fracture. Subcortical cy sts are present over the greater tuberosity right humeral head at the attachments of the supra and in fraspinatus tendons. Subcortical cysts are also present in the bicipital groove right proximal humer us AC JOINT: Type II acromion. There is bulky acromioclavicular joint hypertrophy, narrowing the subacro mial space best shown on sagittal image 12 and coronal image 7 GLENOHUMERAL JOINT: Moderate chondromalacia, mild bony spurring. No malalignment ROTATOR CUFF: High-grade tendinopathy of the distal supra and infraspinatus tendons, with diffuse inc reased signal with cystic changes in the tendons. Only few superficial intact fibers persist, best s hown on coronal images 4-11 and sagittal images 4-6. Subscapularis is intact LABRUM AND BICEPS LABRAL COMPLEX: Rotator interval grossly intact. Bicipital groove is empty on axia l images 7 through 9, question tenodesis at the upper aspect of the bicipital groove. Intra-articula r long head biceps tendon not identified. Superior labrum diffusely small without paralabral cyst. INFERIOR LABRAL COMPLEX: Bony glenoid and labrum intact. IGHL intact without thickening or tear. No p aralabral cysts. ADJACENT SOFT TISSUES: No masses or nodes. OTHER: No other significant finding. IMPRESSION: Diffuse internal derangement as above TECHNICAL DOCUMENTATION: JOB ID: [id number] [employer]- All Rights Reserved Reading location - IP/workstation name: [facility]
== END ==
LOC: RAD 12:18
PROVIDERS: ATTEND Orthopaedic Surgery Sports Medicine
DX: M25.511 Pain in right shoulder (principal); M24.811 Other specific joint derangements of right shoulder, not elsewhere classified
CPT/HCPCS: 73222; 77002; 23350; A9576

== ENCOUNTER 2018-09-18 07:45 | Day surgery (SDC) | payer MEDICARE, OTHER ==
[2018-09-18] MEDS ORDERED: PROMETHAZINE HCL INJ 25 MG/1 ML VIAL IV PRN (12:26)
[2018-09-18] MEDS ORDERED: MEPERIDINE HCL/PF INJ 25 MG/1 ML DISP.SYRIN IV PRN (12:26)
[2018-09-18] MEDS ORDERED: DIPHENHYDRAMINE HCL 50 MG/ML VIAL IV PRN (12:26)
[2018-09-18] MEDS ORDERED: FENTANYL CITRATE INJ/PF 100 MCG/2 ML AMPUL ONE (12:39)
[2018-09-18] MEDS ORDERED: ONDANSETRON HCL INJ/PF 4 MG/2 ML SDV ONE (13:15)
[2018-09-18] MEDS ORDERED: PROPOFOL INJ 200 MG/20 ML VIAL IV ONE (13:20)
[2018-09-18 13:59] VITALS: BP 111/77
--- NOTE | 2018-09-18 15:58 | Operative Report ---
Operative Report DATE OF SURGERY: 09/18/18 Operative Report: The risks benefits and alternatives of the procedure explained to the patient in detail and informed consent is obtained.A GIF Olympus video scope was inserted into the patient's mouth and hypopharynx, the esophagus is identified intubated and insufflated ,the scope was then advanced through the esophagus stomach and duodenum, retroflexion maneuver is done the esophagus stomach and first and second portions of the duodenum examined PREOPERATIVE DIAGNOSIS: Dysphagia, patient had a previous paraesophageal hernia that was repaired. She has a Chayo fundoplication POSTOPERATIVE DIAGNOSIS: Chayo fundoplication does appear to be intact. Mild Schatzki's ring that needs to be broken. Gastritis status post biopsy rule out Helicobacter pylori OPERATION: EGD with biopsy SURGEON: TAVO DOUGLAS ANESTHESIA: LMAC TISSUE REMOVED OR ALTERED: As noted above COMPLICATIONS: None. ESTIMATED BLOOD LOSS: None. INTRAOPERATIVE FINDINGS: As noted above. PROCEDURE: Patient tolerated the procedure well. No immediate postprocedure complications are noted. Patient discharged in good condition. Discharge date 09/18/2018. Discharge diet: Regular. Discharge activity: Regular. 2-3-week follow-up to discuss findings. Patient is instructed to call the office or proceed to the emergency room should they have any further problems or questions.
== END 2018-09-18 14:03 | disposition home or self-care (01) ==
LOC: OROUT 07:45
PROVIDERS: ATTEND Internal Medicine Gastroenterology
DX: K21.0 Gastro-esophageal reflux disease with esophagitis (principal); K22.2 Esophageal obstruction; K29.50 Unspecified chronic gastritis without bleeding; Z79.899 Other long term (current) drug therapy; Z88.5 Allergy status to narcotic agent
CPT/HCPCS: 43239; 88342 ×2; 88305 ×2; J3010; J2405; J2704; 731

== ENCOUNTER 2018-09-24 16:54 | Emergency (ER) | payer MEDICARE, OTHER ==
[2018-09-24] MEDS ORDERED: GABAPENTIN 300 MG CAPSULE PO ONE (19:09)
--- NOTE | 2018-09-24 19:10 | ER Document Report ---
ED Medical Screen (RME) - General Chief Complaint: Headache Stated Complaint: HEAD PAIN Time Seen by Provider: 09/24/18 19:03 TRAVEL OUTSIDE OF THE [place]. IN LAST 30 DAYS: No - HPI Patient complains to provider of: headache Onset: Other - 58-year-old woman with multiple medical comorbidities who presents for evaluation of headache worst on the left side which radiates from the posterior aspect of her head to the top of her head. She has had this pain for approximately 1 year previously was seen for this and treated with an injection over the posterior scalp. She denies fevers or chills focal numbness or weakness or injuries elsewhere. - Related Data Allergies/Adverse Reactions: hydromorphone [From Dilaudid] Allergy (Severe, Verified 09/18/18 08:26) SOB,HEAVY CHEST polyethylene glycol [From Golytely] Allergy (Severe, Verified 09/18/18 08:26) Anaphylaxis tramadol Allergy (Severe, Verified 09/18/18 08:26) CONFUSION FOR 2 DAYS codeine Allergy (Intermediate, Verified 09/18/18 08:26) ITCHING, HIVES diphenhydramine [From Benadryl] Allergy (Intermediate, Verified 09/18/18 08:26) Hives morphine Allergy (Verified 09/18/18 08:26) Past Medical History - General Information source: Patient - Social History Cigarette use (# per day): No Frequency of alcohol use: None - Past Medical History Cardiac Medical History: Reports: Hx Heart Attack - 2012 caused by epinephrine Denies: Hx Coronary Artery Disease, Hx Hypertension Pulmonary Medical History: Reports: Hx Sleep Apnea Denies: Hx Asthma, Hx Bronchitis, Hx COPD, Hx Pneumonia Neurological Medical History: Denies: Hx Cerebrovascular Accident, Hx Seizures Renal/ Medical History: Denies: Hx Peritoneal Dialysis Musculoskeltal Medical History: Denies Hx Arthritis Psychiatric Medical History: Reports: Hx Post Traumatic Stress Disorder Past Surgical History: Reports: Hx Appendectomy, Hx Cholecystectomy, Hx Orthopedic Surgery, Other - Panniculectomy, carpal tunnel 2, shoulder surgery 2, bladder sling, spine. Denies: Hx Hysterectomy - Immunizations Hx Diphtheria, Pertussis, Tetanus Vaccination: Yes History of Influenza Vaccine for 07/2017 - 12/2017 Season: No Review of Systems - Review of Systems -: Yes All other systems reviewed and negative Physical Exam - Vital signs Vitals: Temp Pulse Resp BP Pulse Ox 98.1 F 78 16 124/79 98 09/24/18 17:06 09/24/18 17:06 09/24/18 17:06 09/24/18 17:06 09/24/18 17:06 - General General appearance: Appears well, Alert - HEENT Head: Normocephalic, Atraumatic Eyes: Normal Pupils: PERRL Neck: Other - Tenderness at the base of the left skull - Respiratory Respiratory status: No respiratory distress Chest status: Nontender Breath sounds: Normal Chest palpation: Normal - Cardiovascular Rhythm: Regular Heart sounds: Normal auscultation Murmur: No - Abdominal Inspection: Normal Distension: No distension Bowel sounds: Normal Tenderness: Nontender Organomegaly: No organomegaly - Back Back: Normal, Nontender - Extremities General upper extremity: Normal inspection, Nontender, Normal color, Normal ROM , Normal temperature General lower extremity: Normal inspection, Nontender, Normal color, Normal ROM , Normal temperature, Normal weight bearing. No: Quentin's sign - Neurological Neuro grossly intact: Yes Cognition: Normal Orientation: AAOx4 [place] Coma Scale Eye Opening: Spontaneous Lance Coma Scale Verbal: Oriented [place] Coma Scale Motor: Obeys Commands [place] Coma Scale Total: 15 Speech: Normal Motor strength normal: LUE, RUE, LLE, RLE Sensory: Normal - Psychological Associated symptoms: Normal affect, Normal mood Course - Re-evaluation Re-evalutation: The 58-year-old female presents for pain with radiation from the back of her head to the front of her head. She notes that she has had previous injections in her neck that did help a lot with the pain. 09/24/18 20:42 We will plan for trigger point injection. Believe that this is likely neuropathic pain as a result we will also give a prescription for Neurontin. There is a slight area of irritation near the base of this spot which could represent an early developing shingles though it is less likely as there is no vesicles at this time. Because of her potential for developing shingles however I will give her encouraged follow-up with her primary physician. I will use Depo-Medrol and bupivacaine for local injection to attempt improvement in her symptoms. Patient had improvement in her symptoms after injection locally. She will be discharged with return precautions not believe this represents a more serious condition as a cause of her headache such as but not limited to CVA, trigeminal neuralgia, shingles, intracranial hemorrhage. - Vital Signs Vital signs: Temp Pulse Resp BP Pulse Ox 98.1 F 78 16 124/79 98 09/24/18 17:06 09/24/18 17:06 09/24/18 17:06 09/24/18 17:06 09/24/18 17:06 Doctor's Discharge - Discharge Clinical Impression: Occipital headache Headache Qualifiers: Headache type: unspecified Headache chronicity pattern: acute headache Intractability: not intractable Qualified Code(s): R51 - Headache Condition: Good Disposition: HOME, SELF-CARE Instructions: Headache ([facility]) Additional Instructions: You were seen today in the emergency department for your headache. You had an evaluation including a physical exam as well as a steroid shot. If you still have a headache in 1 week he should go to your primary physician as you could potentially have shingles in your head. I do not believe that you have shingles in her head likely this is related to a nerve pain. Use the medication prescribed to you only twice a day. Return for worsening fevers or chills numbness or weakness or pain elsewhere. Prescriptions: Gabapentin [Neurontin 300 mg Capsule] 300 mg PO BID PRN #30 cap PRN Reason: For Headache Referrals: MELVA GUDINO MD [Primary Care Provider] - Follow up in 1 week
[2018-09-24] MEDS ORDERED: BUPIVACAINE HCL 0.75% INJ/PF (7.5 MG/1 ML) 10 ML SDV INFIL ONE (19:14)
[2018-09-24] MEDS ORDERED: METHYLPREDNISOLONE ACETATE INJ 40 MG/1 ML ML IM PRN (19:15)
[2018-09-24 19:48] VITALS: BP 139/88
== END 2018-09-24 19:51 | disposition home or self-care (01) ==
LOC: ER 16:54
DX: R51 Headache (principal); Z88.6 Allergy status to analgesic agent; Z88.3 Allergy status to other anti-infective agents; I25.2 Old myocardial infarction; Z90.49 Acquired absence of other specified parts of digestive tract
CPT/HCPCS: 99283; 96372; J3490; A9270; J1020

== ENCOUNTER 2018-09-26 07:16 | Emergency (ER) | payer MEDICARE, OTHER ==
[2018-09-26] MEDS ORDERED: LORAZEPAM 1 MG TABLET PO ONE (07:56)
[2018-09-26 08:16] LABS: ABSOLUTE BASOPHILS # (AUTO) 0.1 10^3/uL (0.0-0.2); ABSOLUTE LYMPHOCYTES (AUTO) 1.4 10^3/uL (0.5-4.7); ABSOLUTE MONOCYTES (AUTO) 0.4 10^3/uL (0.1-1.4); ABSOLUTE NEUT (AUTO) 4.3 10^3/uL (1.7-8.2); BASOPHILS % (AUTO) 0.9 % (0-2); EOSINOPHILS % (AUTO) 0.6 % (0-6); HEMATOCRIT 37.3 % (36.0-47.0); LYMPHOCYTES % (AUTO) 22.3 % (13-45); MEAN CORPUSCULAR HGB CONC 34.9 g/dL (32.0-36.0); MEAN CORPUSCULAR VOLUME 92 fl (80-97); MONOCYTES % (AUTO) 6.7 % (3-13); PLATELET COUNT 290 10^3/uL (150-450); RED BLOOD COUNT 4.07 10^6/uL (3.72-5.28); RED CELL DISTRIBUTION WIDTH 12.4 % (11.5-14.0); SEGMENTED NEUTROPHILS % (AUTO) 69.5 % (42-78); TOTAL CELLS COUNTED % (AUTO) 100 %; WHITE BLOOD COUNT 6.2 10^3/uL (4.0-10.5)
[2018-09-26 08:32] LABS: ALANINE AMINOTRANSFERASE 17 U/L (9-52); ALBUMIN 3.9 g/dL (3.5-5.0); ALKALINE PHOSPHATASE 103 U/L (38-126); ANION GAP 10 (5-19); ASPARTATE AMINO TRANSFERASE 14 U/L (14-36); BILIRUBIN,DIRECT 0.1 mg/dL (0.0-0.4); BLOOD UREA NITROGEN 15 mg/dL (7-20); C-REACTIVE PROTEIN 6.9 mg/L (<10.0); CALCIUM 9.3 mg/dL (8.4-10.2); CARBON DIOXIDE 26 mmol/L (22-30); CHLORIDE 104 mmol/L (98-107); GLUCOSE 100 mg/dL (75-110); POTASSIUM 4.4 mmol/L (3.6-5.0); SODIUM 140.2 mmol/L (137-145); TOTAL PROTEIN 6.6 g/dL (6.3-8.2)
--- NOTE | 2018-09-26 08:48 | RADIOLOGY REPORT (SQ) ---
EXAM DESCRIPTION: CT HEAD WITHOUT COMPLETED DATE/TIME: 09/26/2018 8:35 am REASON FOR STUDY: headache COMPARISON: None. TECHNIQUE: Axial images acquired through the brain without intravenous contrast. Images reviewed wi th bone, brain and subdural windows. Additional sagittal and coronal reconstructions were generated. Images stored on PACS. All CT scanners at this facility use dose modulation, iterative reconstruction, and/or weight based d osing when appropriate to reduce radiation dose to as low as reasonably achievable (ALARA). [facility]: Dose Right [facility]: CareDose [facility]: Dose Right [facility]: Teradose 4D [facility]: Amadesa RADIATION DOSE: CT Rad equipment meets quality standard of care and radiation dose reduction techniq ues were employed. CTDIvol: 53.2 mGy. DLP: 1070 mGy-cm. mGy. LIMITATIONS: None. FINDINGS: VENTRICLES: Normal size and contour. CEREBRUM: No masses. No hemorrhage. No midline shift. No evidence for acute infarction. Normal gra y/white matter differentiation. No areas of low density in the white matter. CEREBELLUM: No masses. No hemorrhage. No alteration of density. No evidence for acute infarction. EXTRAAXIAL SPACES: No fluid collections. No masses. ORBITS AND GLOBE: No intra- or extraconal masses. Normal contour of globe without masses. CALVARIUM: No fracture. PARANASAL SINUSES: No fluid or mucosal thickening. SOFT TISSUES: No mass or hematoma. OTHER: No other significant finding. IMPRESSION: NORMAL BRAIN CT WITHOUT CONTRAST. EVIDENCE OF ACUTE STROKE: NO. COMMENT: Quality ID # [id number]: Final reports with documentation of one or more dose reduction techniques (e.g., Automated exposure control, adjustment of the mA and/or kV according to patient size, use of iterative reconstruction technique) TECHNICAL DOCUMENTATION: JOB ID: [id number] [employer]- All Rights Reserved Reading location - IP/workstation name: [email or web address]
[2018-09-26 08:54] LABS: ERYTHROCYTE SEDIMENTATION RATE 27 mm/hr (0-30)
[2018-09-26] MEDS ORDERED: DEXAMETHASONE SOD PHOS INJ 10 MG/1 ML VIAL IV ONE (09:56)
--- NOTE | 2018-09-26 11:10 | ER Document Report ---
ED Headache - General Chief Complaint: Headache Stated Complaint: HEADACHE Time Seen by Provider: 09/26/18 07:35 Mode of Arrival: Ambulatory Information source: Patient Notes: Patient is a 58-year-old female who returns emergency room complaining of her left-sided headache. Patient was seen here 2 nights ago was given a trigger point injection on the occipital area of her head and returns today with a worsening headache. Patient states it is very tender to touch and is slightly higher than where the shot was given. She also states that her radiates around her head and up to the frontal area. She was written for a prescription for Neurontin which she has not filled yet. There was discussion in the notes of the possibility of a shingles outbreak but with no rash yet was not treated. Patient denies ever having chickenpox and states she is been tested and she is for sure she has never had chickenpox. She states that this morning she was getting ready to go see her primary care provider and she was drying her hair when the pain suddenly hit that area and it was so intense that it dropped her to her knees. She denies any nausea vomiting she denies any photophobia but states the pain is "unreal". TRAVEL OUTSIDE OF THE [place] IN LAST 30 DAYS: No - HPI Patient complains to provider of: Headache Patient reports: Hx chronic headaches Onset: Other Onset was: Abrupt Timing: Still present Quality of pain: Sharp, Stabbing, Throbbing Severity: Severe Pain Level: 5 Context: denies: Head injury, Meningitis exposure Preceding symptoms: denies: Visual disturbance Associated symptoms: denies: Confusion, Dizzy, Double/blurred vision, Fainting, Fever, Lightheaded, Memory loss, Motion sickness, Neck pain, Photophobia, Speech problems, Stiff neck, Tingling/numb sensation, Trouble walking, Other Exacerbated by: denies: Light, Noise, Movement, Position Similar symptoms previously: Yes Recently seen / treated by doctor: Yes - Related Data Allergies/Adverse Reactions: hydromorphone [From Dilaudid] Allergy (Severe, Verified 09/18/18 08:26) SOB,HEAVY CHEST polyethylene glycol [From Golytely] Allergy (Severe, Verified 09/18/18 08:26) Anaphylaxis tramadol Allergy (Severe, Verified 09/18/18 08:26) CONFUSION FOR 2 DAYS codeine Allergy (Intermediate, Verified 09/18/18 08:26) ITCHING, HIVES diphenhydramine [From Benadryl] Allergy (Intermediate, Verified 09/18/18 08:26) Hives morphine Allergy (Verified 09/18/18 08:26) Past Medical History - General Information source: Patient, Relative - Social History Smoking Status: Never Smoker Cigarette use (# per day): No Chew tobacco use (# tins/day): No Smoking Education Provided: No Frequency of alcohol use: None Drug Abuse: None Family History: Reviewed & Not Pertinent, CAD, DM Patient has suicidal ideation: No Patient has homicidal ideation: No - Past Medical History Cardiac Medical History: Reports: Hx Heart Attack - 2013 caused by epinephrine Denies: Hx Coronary Artery Disease, Hx Hypertension Pulmonary Medical History: Reports: Hx Sleep Apnea Denies: Hx Asthma, Hx Bronchitis, Hx COPD, Hx Pneumonia Neurological Medical History: Denies: Hx Cerebrovascular Accident, Hx Seizures Renal/ Medical History: Denies: Hx Peritoneal Dialysis Musculoskeletal Medical History: Denies Hx Arthritis Psychiatric Medical History: Reports: Hx Post Traumatic Stress Disorder Past Surgical History: Reports: Hx Appendectomy, Hx Cholecystectomy, Hx Orthopedic Surgery, Other - Panniculectomy, carpal tunnel 2, shoulder surgery 2, bladder sling, spine. Denies: Hx Hysterectomy - Immunizations Hx Diphtheria, Pertussis, Tetanus Vaccination: Yes Review of Systems - Review of Systems Constitutional: No symptoms reported EENT: No symptoms reported Cardiovascular: No symptoms reported Respiratory: No symptoms reported Gastrointestinal: No symptoms reported Genitourinary: No symptoms reported Female Genitourinary: No symptoms reported Musculoskeletal: No symptoms reported Skin: No symptoms reported Hematologic/Lymphatic: No symptoms reported Neurological/Psychological: See HPI, Headaches -: Yes All other systems reviewed and negative Physical Exam - Vital signs Vitals: Temp Pulse Resp BP Pulse Ox 97.6 F 83 20 121/75 99 09/26/18 07:24 09/26/18 07:24 09/26/18 07:24 09/26/18 07:24 09/26/18 07:24 Interpretation: Normal - Notes Notes: PHYSICAL EXAMINATION: GENERAL: Patient is a well-nourished well-developed 58-year-old female who is in no apparent distress on physical exam today however she does appear uncomfortable and in some moderate amount of pain. Patient seen holding the left side of her head and crying. The area she is holding is the back portion of her head occipital area with her left hand. This is the same area where she received trigger point injection in less than 48 hours ago. HEAD:, normocephalic. Visual inspection of the patient's head shows that there is an irritation of a place where apparently the trigger point injection was done on the left lower portion of the occipital portion of the head. The discomfort and pain that is associated today is above that by about 3 inches and is very sensitive to touch and very painful area to touch. There is no sign of a rash visual inspection under spot light in the room showed no abnormalities that I could see. Although palpation of the area was exquisitely tender. The area with the trigger point was that has a little bit of irritation to it but does not appear to be a rash at this time. They would be associated with a shingles type presentation. EYES: Pupils equal round and reactive to light, extraocular movements intact, conjunctiva are normal. ENT: Nares patent, oropharynx clear without exudates. Moist mucous membranes. NECK: Normal range of motion, supple without lymphadenopathy no meningeal sign, full range of motion with no discomfort or pain. LUNGS: Breath sounds clear to auscultation bilaterally and equal. No wheezes rales or rhonchi. HEART: Regular rate and rhythm without murmurs Female : deferred Musculoskeletal: Normal range of motion, no pitting or edema. No cyanosis. NEUROLOGICAL: Normal speech, normal gait. Normal sensory, motor exams. Neurologically patient is intact. Her NIH score is 0. There is no sign of a CVA presentation here. PSYCH: Tearful SKIN: Warm, Dry, normal turgor, no rashes or lesions noted. Course - Re-evaluation Re-evalutation: 09/26/18 11:15 Since this was patient's second presentation to the ER and no history of CT of the head it was felt it was necessary to this time do one. I did not really think we did find much but given patient's quick return to ER and increasing headache I felt the need to prove that there was normal. Her labs all came back normal as well. No inflammatory markers were elevated. I gave patient a milligram of Ativan as she relaxed a little bit and the headache went away. Patient appeared very tense to me so when I got the read reports back and went into sit down next to her and her friend is there and I asked patient if she is under any stress lately and this is where the chain was broken. Patient started crying that she had just lost her of 21 years. 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 Recently I am not sure as to the number of days that meant but it is very recent within the past month or 2. The friend states she is not dealing with this very well. Patient has a tattoo on her right wrist that is patient's 's last heartbeat that was captured. She admitted to this and I have informed her that stress can lead to real physical problems and that she really needs an outlet and someone to discuss this with. The Ativan did give her some help she is not suicidal and the friend states that something she would never think about doing. At this point I have given her 10 of Decadron IV as well this is in case it is an inflammatory kind of a problem. I have discussed with her the neuropathic kind of discomfort and pain that was talked to her by the previous physician and placed on Neurontin. She has not started this and I believe this may end up helping her more than anything else. However I will write her for 10 Ativan tablets that she take 1/2-1 tablet every 6-8 hours as needed in the short-term until she can see her primary care provider. She does know that she is not to drive while taking his medication. At this point I believe patient is safe to go home that her presentation is not that 1 of a CVA or a subarachnoid bleed or herniation of the brainstem. - Vital Signs Vital signs: Temp Pulse Resp BP Pulse Ox 97.6 F 83 20 121/75 99 09/26/18 07:24 09/26/18 07:24 09/26/18 07:24 09/26/18 07:24 09/26/18 07:24 - Laboratory Result Diagrams: 09/26/18 08:07 09/26/18 08:07 Discharge - Discharge Clinical Impression: Occipital headache, Stress and adjustment reaction Headache Qualifiers: Headache type: tension-type Headache chronicity pattern: unspecified pattern Intractability: not intractable Qualified Code(s): G44.209 - Tension-type headache, unspecified, not intractable Condition: Stable Disposition: HOME, SELF-CARE Instructions: Headache ([facility]) Additional Instructions: As we have discussed stress can minimum amplify an actual physical problem. I seriously believe that you have something going on there whether is caused from stress or not I do not know it is going to take more intervention. You do have a primary care physician I will provide you with the family practice groups that are seeing patients here in [facility]. I highly suggest that you do so as soon as possible. And be open with him about your situation. Cannot start the path to healing without being able to say what is wrong. If you have any concerns of the headaches maintain her return when you come back to ER for recheck. I do believe that the Neurontin will show resolution in the type of pain and discomfort you have in that one area of your head. The CT was negative as far as anything internally goes on your labs were normal as far as anything inflammatory or infectious at this point. At least for the standpoint of being a systemic problem. Again I think things have been amplified we may be able to buy some time as far is making the headaches be more manageable until you can get to see her primary. Prescriptions: Lorazepam [Ativan 1 mg Tablet] 1 mg PO Q8 PRN #10 tablet PRN Reason: Referrals: MELVA GUDINO MD [Primary Care Provider] - Follow up as needed
[2018-09-26] MEDS ORDERED: LORAZEPAM INJ 2 MG/1 ML VIAL IV ONE (11:26)
[2018-09-26 12:15] VITALS: BP 114/67
== END 2018-09-26 12:15 | disposition home or self-care (01) ==
LOC: ER 07:16
DX: G44.209 Tension-type headache, unspecified, not intractable (principal); F43.8 Other reactions to severe stress
CPT/HCPCS: 99284; 96374; 96375; 36415; 85025; 85652; 86140; 80053; 70450; J2060; A9270; J1100

== ENCOUNTER 2018-10-29 14:46 | Emergency (ER) | payer MEDICARE, OTHER ==
[2018-10-29] MEDS ORDERED: KETOROLAC TROMETHAMINE INJ/PF 30 MG/1 ML SDV IV ONE (15:47)
[2018-10-29] MEDS ORDERED: NORMAL SALINE 1000 ML 1,000 ML IV ONE (15:47)
[2018-10-29] MEDS ORDERED: PROCHLORPERAZINE EDISYLATE INJ 10 MG/2 ML VIAL IV ONE (15:47)
--- NOTE | 2018-10-29 15:49 | ER Document Report ---
ED Medical Screen (RME) - General Chief Complaint: Headache Stated Complaint: HEAD PAIN Time Seen by Provider: 10/29/18 15:45 Mode of Arrival: Wheelchair Information source: Patient Notes: Patient complains of left occipital headache pain that started around 2 PM today. Patient states she gets almost daily headaches and has had a headache pain in this location previously. Patient does report nausea and dizziness in which she feels off balance. Patient states she is in the process of getting an outpatient MRI to further evaluate her chronic headaches. I have greeted and performed a rapid initial assessment of this patient. A comprehensive ED assessment and evaluation of the patient, analysis of test results and completion of the medical decision making process will be conducted by additional ED providers. TRAVEL OUTSIDE OF THE [place]. IN LAST 30 DAYS: No - Related Data Allergies/Adverse Reactions: hydromorphone [From Dilaudid] Allergy (Severe, Verified 09/18/18 08:26) SOB,HEAVY CHEST polyethylene glycol [From Golytely] Allergy (Severe, Verified 09/18/18 08:26) Anaphylaxis tramadol Allergy (Severe, Verified 09/18/18 08:26) CONFUSION FOR 2 DAYS codeine Allergy (Intermediate, Verified 09/18/18 08:26) ITCHING, HIVES diphenhydramine [From Benadryl] Allergy (Intermediate, Verified 09/18/18 08:26) Hives morphine Allergy (Verified 09/18/18 08:26) Past Medical History - Past Medical History Cardiac Medical History: Reports: Hx Heart Attack - 2012 caused by epinephrine Denies: Hx Coronary Artery Disease, Hx Hypertension Pulmonary Medical History: Reports: Hx Sleep Apnea Denies: Hx Asthma, Hx Bronchitis, Hx COPD, Hx Pneumonia Neurological Medical History: Denies: Hx Cerebrovascular Accident, Hx Seizures Renal/ Medical History: Denies: Hx Peritoneal Dialysis Musculoskeltal Medical History: Denies Hx Arthritis Psychiatric Medical History: Reports: Hx Post Traumatic Stress Disorder Past Surgical History: Reports: Hx Appendectomy, Hx Cholecystectomy, Hx Orthopedic Surgery, Other - Panniculectomy, carpal tunnel 2, shoulder surgery 2, bladder sling, spine. Denies: Hx Hysterectomy - Immunizations Hx Diphtheria, Pertussis, Tetanus Vaccination: Yes History of Influenza Vaccine for 07/2017 - 12/2017 Season: No Physical Exam - Vital signs Vitals: Temp Pulse Resp BP Pulse Ox 98.0 F 82 15 108/73 95 10/29/18 14:51 10/29/18 14:51 10/29/18 14:51 10/29/18 14:51 10/29/18 14:51 - Neurological Neuro grossly intact: Yes Cognition: Normal [place] Coma Scale Eye Opening: Spontaneous Lance Coma Scale Verbal: Oriented [place] Coma Scale Motor: Obeys Commands [place] Coma Scale Total: 15 Course - Vital Signs Vital signs: Temp Pulse Resp BP Pulse Ox 98.0 F 82 15 108/73 95 10/29/18 14:51 10/29/18 14:51 10/29/18 14:51 10/29/18 14:51 10/29/18 14:51 Doctor's Discharge - Discharge Referrals: MELVA GUDINO MD [Primary Care Provider] - Follow up as needed
[2018-10-29 16:31] LABS: ABSOLUTE BASOPHILS # (AUTO) 0.1 10^3/uL (0.0-0.2); ABSOLUTE EOSINOPHILS # (AUTO) 0.1 10^3/uL (0.0-0.6); ABSOLUTE LYMPHOCYTES (AUTO) 1.8 10^3/uL (0.5-4.7); ABSOLUTE MONOCYTES (AUTO) 0.5 10^3/uL (0.1-1.4); ABSOLUTE NEUT (AUTO) 4.9 10^3/uL (1.7-8.2); BASOPHILS % (AUTO) 0.9 % (0-2); EOSINOPHILS % (AUTO) 1.2 % (0-6); HEMATOCRIT 39.1 % (36.0-47.0); HEMOGLOBIN 13.5 g/dL (12.0-15.5); LYMPHOCYTES % (AUTO) 24.3 % (13-45); MEAN CORPUSCULAR HEMOGLOBIN 32.3 pg (27.0-33.4); MEAN CORPUSCULAR HGB CONC 34.5 g/dL (32.0-36.0); MEAN CORPUSCULAR VOLUME 93 fl (80-97); MONOCYTES % (AUTO) 6.8 % (3-13); PLATELET COUNT 313 10^3/uL (150-450); RED BLOOD COUNT 4.18 10^6/uL (3.72-5.28); RED CELL DISTRIBUTION WIDTH 13.1 % (11.5-14.0); SEGMENTED NEUTROPHILS % (AUTO) 66.8 % (42-78); TOTAL CELLS COUNTED % (AUTO) 100 %; WHITE BLOOD COUNT 7.3 10^3/uL (4.0-10.5)
[2018-10-29 16:56] LABS: ANION GAP 7 (5-19); BLOOD UREA NITROGEN 11 mg/dL (7-20); CALCIUM 9.3 mg/dL (8.4-10.2); CARBON DIOXIDE 29 mmol/L (22-30); CHLORIDE 105 mmol/L (98-107); GLUCOSE 101 mg/dL (75-110); POTASSIUM 3.7 mmol/L (3.6-5.0); SODIUM 140.6 mmol/L (137-145)
--- NOTE | 2018-10-29 18:31 | ER Document Report ---
ED Headache - General Chief Complaint: Headache Stated Complaint: HEAD PAIN Time Seen by Provider: 10/29/18 15:45 Mode of Arrival: Wheelchair Information source: Patient Notes: Note this is a 58-year-old female that has been experiencing left-sided headaches for the past several months who presented today with a left-sided headache, dizziness, feeling sleepy. She states it came on in the afternoon. She denies any prodrome. She denies any fever or chills or neck stiffness at this time. The headache is similar to previous headaches. TRAVEL OUTSIDE OF THE [place] IN LAST 30 DAYS: No - HPI Patient complains to provider of: Headache Patient reports: Hx chronic headaches. No: Brain neoplasm, Congenital anomally, Frequent migraines, Prior CVA Onset: Yesterday Onset was: Gradual Quality of pain: Dull Severity: Moderate Pain Level: 2 Associated symptoms: denies: Lightheaded, Nausea/vomiting, Neck pain, Photophobia, Speech problems Exacerbated by: Noise Similar symptoms previously: Yes Recently seen / treated by doctor: Yes - Related Data Allergies/Adverse Reactions: hydromorphone [From Dilaudid] Allergy (Severe, Verified 09/18/18 08:26) SOB,HEAVY CHEST polyethylene glycol [From Golytely] Allergy (Severe, Verified 09/18/18 08:26) Anaphylaxis tramadol Allergy (Severe, Verified 09/18/18 08:26) CONFUSION FOR 2 DAYS codeine Allergy (Intermediate, Verified 09/18/18 08:26) ITCHING, HIVES diphenhydramine [From Benadryl] Allergy (Intermediate, Verified 09/18/18 08:26) Hives morphine Allergy (Verified 09/18/18 08:26) Past Medical History - General Information source: Patient - Social History Smoking Status: Unknown if Ever Smoked Cigarette use (# per day): No Chew tobacco use (# tins/day): No Frequency of alcohol use: None Drug Abuse: None Lives with: Family Family History: Reviewed & Not Pertinent, CAD, DM Patient has suicidal ideation: No Patient has homicidal ideation: No - Past Medical History Cardiac Medical History: Reports: Hx Heart Attack - 2013 caused by epinephrine Denies: Hx Coronary Artery Disease, Hx Hypertension Pulmonary Medical History: Reports: Hx Sleep Apnea Denies: Hx Asthma, Hx Bronchitis, Hx COPD, Hx Pneumonia Neurological Medical History: Denies: Hx Cerebrovascular Accident, Hx Seizures Renal/ Medical History: Denies: Hx Peritoneal Dialysis Musculoskeletal Medical History: Denies Hx Arthritis Psychiatric Medical History: Reports: Hx Post Traumatic Stress Disorder Past Surgical History: Reports: Hx Appendectomy, Hx Cholecystectomy, Hx Orthopedic Surgery, Other - Panniculectomy, carpal tunnel 2, shoulder surgery 2, bladder sling, spine. Denies: Hx Hysterectomy - Immunizations Hx Diphtheria, Pertussis, Tetanus Vaccination: Yes Review of Systems - Review of Systems Constitutional: denies: Chills, Fever EENT: No symptoms reported Cardiovascular: No symptoms reported. denies: Chest pain, Palpitations, Heart racing Respiratory: No symptoms reported Gastrointestinal: No symptoms reported Genitourinary: No symptoms reported Female Genitourinary: No symptoms reported Musculoskeletal: No symptoms reported Skin: No symptoms reported Hematologic/Lymphatic: No symptoms reported Neurological/Psychological: See HPI Physical Exam - Vital signs Vitals: Temp Pulse Resp BP Pulse Ox 98.0 F 82 15 108/73 95 10/29/18 14:51 10/29/18 14:51 10/29/18 14:51 10/29/18 14:51 10/29/18 14:51 Notes: Physical exam: GENERAL: She is alert and oriented x3, no acute distress HEAD: Atraumatic, normocephalic. EYES: Pupils equal round and reactive to light, extraocular movements intact, sclera anicteric, conjunctiva are normal. ENT: TMs normal, nares patent, oropharynx clear without exudates. Moist mucous membranes. NECK: Normal range of motion, supple without obvious mass or JVD. LUNGS: Breath sounds clear to auscultation bilaterally and equal. No wheezes rales or rhonchi. HEART: Regular rate and rhythm without murmurs, rubs or gallops. ABDOMEN: Soft, normoactive bowel sounds. No tenderness to palpation. No guarding, no rebound. No masses appreciated. EXTREMITIES: Normal range of motion, no pitting or edema. No clubbing or cyanosis. NEUROLOGICAL: Cranial nerves II through XII grossly intact. Motor is 5/5, sensory grossly intact , neck supple, no photophobia or meningismus. Normal speech, moving all extremities. PSYCH: Normal mood, normal affect. SKIN: Warm, Dry, normal turgor, no rashes or lesions noted. Course - Re-evaluation Re-evalutation: 10/29/18 18:28 Patient received IV Toradol, promethazine and IV fluids. She was observed for a few hours. She is totally asymptomatic at this time and looks good. I did r eview her CAT scan from August which looked good. I recommend she follow-up with a primary care doctor and I will give her with a referral. - Vital Signs Vital signs: Temp Pulse Resp BP Pulse Ox 98.0 F 82 15 108/73 95 10/29/18 14:51 10/29/18 14:51 10/29/18 14:51 10/29/18 14:51 10/29/18 14:51 - Laboratory Result Diagrams: 10/29/18 16:16 10/29/18 16:16 Discharge - Discharge Clinical Impression: Headache resolved Condition: Stable Disposition: HOME, SELF-CARE Additional Instructions: Can try the gabapentin for pain. Return to the ER for worsening pain, fever, neck stiffness or any concerns or getting worse. Otherwise follow-up with a primary care doctor. I have left the number for Dr. Declan Pond Prescriptions: Gabapentin [Neurontin 100 mg Capsule] 100 mg PO Q12 #30 capsule Referrals: EDER HOOK MD [ACTIVE STAFF] - Follow up as needed (This is the number of a primary care doctor affiliated with the hospital. Call for an evaluation and referral to a neurologist.)
[2018-10-29 18:57] VITALS: BP 110/60
== END 2018-10-29 19:01 | disposition home or self-care (01) ==
LOC: ER 14:46
DX: R51 Headache (principal); R42 Dizziness and giddiness; Z88.5 Allergy status to narcotic agent; Z88.8 Allergy status to other drugs, medicaments and biological substances
CPT/HCPCS: 99284; 96361; 96374; 96375; 36415; 85025; 85652; 80048; J1885; J0780; J7030

== ENCOUNTER 2018-12-15 15:34 | Emergency (ER) | payer MEDICARE ==
[2018-12-15] MEDS ORDERED: ASPIRIN 81 MG TABLET, CHEWABLE PO ONE (16:10)
--- NOTE | 2018-12-15 16:27 | ER Document Report ---
Entered by SHELLEY DE JESUS SCRIBE 12/15/18 1843 Acting as scribe for:DARLEEN LEDEZMA DO ED Medical Screen (RME) - General Chief Complaint: Chest Tightness Stated Complaint: CHEST TIGHTNESS Time Seen by Provider: 12/15/18 16:05 Primary Care Provider: MELVA GUDINO MD [Primary Care Provider] - Follow up as needed Mode of Arrival: Wheelchair Information source: Patient Notes: Patient is a 58 year old female with anxiety, depression, migraines and a history of MA presents to the emergency department complaining of multiple symptoms including general weakness, light headedness dizziness, nausea, diarrhea and chest tightness. Patient states her chest tightness was onset yesterday and her weakness, lightheadedness, dizziness, nausea and diarrhea onset 2 days ago. She states she was recently diagnosed with pneumonia 2 weeks ago and was prescribed an antibiotic. Patient has a history of an MA 2 years ago. I have greeted and performed a rapid initial assessment of this patient. A comprehensive ED assessment and evaluation of the patient, analysis of test results and completion of the medical decision making process will be conducted by additional ED providers. GENERAL: Alert, interacts well. No acute distress. HEAD: Normocephalic, Atraumatic. EYES: Pupils equal, round, and reactive to light. EOMI. ENT: Oral mucosa moist, tongue midline. NECK: Full range of motion. Supple. Trachea midline. LUNGS: Clear to auscultation bilaterally, no wheezes, rales, or rhonchi. No respiratory distress. HEART: Regular rate and rhythm. No murmurs, gallops, or rubs. EXTREMITIES: Moves all four extremities spontaneously. PSYCH: Normal affect, normal mood. TRAVEL OUTSIDE OF THE [place] IN LAST 30 DAYS: No - Related Data Allergies/Adverse Reactions: hydromorphone [From Dilaudid] Allergy (Severe, Verified 12/15/18 16:03) SOB,HEAVY CHEST polyethylene glycol [From Golytely] Allergy (Severe, Verified 12/15/18 16:03) Anaphylaxis tramadol Allergy (Severe, Verified 12/15/18 16:03) CONFUSION FOR 2 DAYS codeine Allergy (Intermediate, Verified 12/15/18 16:03) ITCHING, HIVES diphenhydramine [From Benadryl] Allergy (Intermediate, Verified 12/15/18 16:03) Hives morphine Allergy (Verified 12/15/18 16:03) Past Medical History - Past Medical History Cardiac Medical History: Reports: Hx Heart Attack - 2012 caused by epinephrine Denies: Hx Coronary Artery Disease, Hx Hypertension Pulmonary Medical History: Reports: Hx Sleep Apnea Denies: Hx Asthma, Hx Bronchitis, Hx COPD, Hx Pneumonia Neurological Medical History: Denies: Hx Cerebrovascular Accident, Hx Seizures Renal/ Medical History: Denies: Hx Peritoneal Dialysis Musculoskeltal Medical History: Denies Hx Arthritis Psychiatric Medical History: Reports: Hx Post Traumatic Stress Disorder Past Surgical History: Reports: Hx Appendectomy, Hx Cholecystectomy, Hx Orthopedic Surgery, Other - Panniculectomy, carpal tunnel 2, shoulder surgery 2, bladder sling, spine. Denies: Hx Hysterectomy - Immunizations Hx Diphtheria, Pertussis, Tetanus Vaccination: Yes History of Influenza Vaccine for 07/2017 - 12/2017 Season: No Physical Exam - Vital signs Vitals: Temp Pulse Resp BP Pulse Ox 98.1 F 79 15 118/78 96 12/15/18 15:48 12/15/18 15:48 12/15/18 15:48 12/15/18 15:48 12/15/18 15:48 Course - Vital Signs Vital signs: Temp Pulse Resp BP Pulse Ox 98.1 F 79 15 118/78 96 12/15/18 15:48 12/15/18 15:48 12/15/18 15:48 12/15/18 15:48 12/15/18 15:48 Doctor's Discharge - Discharge Referrals: MELVA GUDINO MD [Primary Care Provider] - Follow up as needed I personally performed the services described in the documentation, reviewed and edited the documentation which was dictated to the scribe in my presence, and it accurately records my words and actions.
[2018-12-15] MEDS ORDERED: NORMAL SALINE 500 ML IV ONE (17:20)
[2018-12-15 17:27] LABS: ABSOLUTE BASOPHILS # (AUTO) 0.1 10^3/uL (0.0-0.2); ABSOLUTE EOSINOPHILS # (AUTO) 0.4 10^3/uL (0.0-0.6); ABSOLUTE LYMPHOCYTES (AUTO) 2.1 10^3/uL (0.5-4.7); ABSOLUTE MONOCYTES (AUTO) 0.5 10^3/uL (0.1-1.4); ABSOLUTE NEUT (AUTO) 5.1 10^3/uL (1.7-8.2); BASOPHILS % (AUTO) 0.6 % (0-2); EOSINOPHILS % (AUTO) 4.6 % (0-6); HEMATOCRIT 39.9 % (36.0-47.0); HEMOGLOBIN 13.9 g/dL (12.0-15.5); MEAN CORPUSCULAR HEMOGLOBIN 32.5 pg (27.0-33.4); MEAN CORPUSCULAR HGB CONC 34.9 g/dL (32.0-36.0); MEAN CORPUSCULAR VOLUME 93 fl (80-97); MONOCYTES % (AUTO) 6.5 % (3-13); PLATELET COUNT 418 10^3/uL (150-450); RED BLOOD COUNT 4.28 10^6/uL (3.72-5.28); SEGMENTED NEUTROPHILS % (AUTO) 62.3 % (42-78); TOTAL CELLS COUNTED % (AUTO) 100 %; WHITE BLOOD COUNT 8.2 10^3/uL (4.0-10.5)
--- NOTE | 2018-12-15 17:29 | RADIOLOGY REPORT (SQ) ---
EXAM DESCRIPTION: CHEST SINGLE VIEW COMPLETED DATE/TIME: 12/15/2018 5:17 pm REASON FOR STUDY: SOB, chest pressure COMPARISON: 06/16/2017 TECHNIQUE: Single frontal radiographic view of the chest acquired. NUMBER OF VIEWS: One view. LIMITATIONS: None. FINDINGS: LUNGS AND PLEURA: No pneumothorax. No consolidation or pleural effusion. MEDIASTINUM AND HILAR STRUCTURES: Stable. HEART AND VASCULAR STRUCTURES: Stable. BONES: No acute findings. HARDWARE: None in the chest. OTHER: No other significant finding. IMPRESSION: NO ACUTE FINDINGS. TECHNICAL DOCUMENTATION: JOB ID: [id number] [place]-[id number] 2010 [employer]- All Rights Reserved Reading location - IP/workstation name: [email or web address]
[2018-12-15 17:36] LABS: ALANINE AMINOTRANSFERASE 12 U/L (9-52); ALBUMIN 3.9 g/dL (3.5-5.0); ALKALINE PHOSPHATASE 113 U/L (38-126); ANION GAP 9 (5-19); ASPARTATE AMINO TRANSFERASE 16 U/L (14-36); BILIRUBIN,DIRECT 0.2 mg/dL (0.0-0.4); BILIRUBIN,TOTAL 0.3 mg/dL (0.2-1.3); BLOOD UREA NITROGEN 11 mg/dL (7-20); CALCIUM 9.3 mg/dL (8.4-10.2); CARBON DIOXIDE 29 mmol/L (22-30); CHLORIDE 103 mmol/L (98-107); GLUCOSE 90 mg/dL (75-110); POTASSIUM 4.2 mmol/L (3.6-5.0); SODIUM 141.2 mmol/L (137-145); TOTAL PROTEIN 6.6 g/dL (6.3-8.2)
[2018-12-15 17:37] LABS: CREATINE KINASE < 20 U/L (30-135)
[2018-12-15 17:59] LABS: CREATINE KINASE MB < 0.22 ng/mL (<4.55); TROPONIN I < 0.012 ng/mL
--- NOTE | 2018-12-15 18:03 | EKG REPORT ---
SEVERITY:- ABNORMAL ECG - SINUS RHYTHM PROBABLE POSTERIOR INFARCT : Confirmed by: Elida Asencio MD 15-Dec-2018 18:02:39
[2018-12-15 18:24] LABS: FREE T3 4.22 pg/mL (2.77-5.27); FREE T4 (FREE THYROXINE) 1.07 ng/dL (0.78-2.19)
[2018-12-15 18:37] LABS: THYROID STIMULATING HORMONE 2.53 uIU/mL (0.47-4.68)
[2018-12-15] MEDS ORDERED: KETOROLAC TROMETHAMINE INJ/PF 30 MG/1 ML SDV IV ONE (19:15)
--- NOTE | 2018-12-15 19:23 | ER Document Report ---
ED General - General Chief Complaint: Chest Tightness Stated Complaint: CHEST TIGHTNESS Time Seen by Provider: 12/15/18 16:05 Primary Care Provider: MELVA GUDINO MD [Primary Care Provider] - Follow up as needed Mode of Arrival: Wheelchair Information source: Patient Notes: 58-year-old female with a history of migraines, PTSD. Patient presents to the emergency room with generalized weakness, lightheadedness and dizziness for the past 2 days. She does states she was diagnosed with pneumonia 2 weeks ago and had an antibiotic at that time. She does report some sharp left-sided chest wall pain which seems to be worse with movement and inspiration. She denies any exertional shortness of breath. She denies any radiation of chest discomfort to the neck or to the arms. She denies any diaphoresis. Past medical history: Patient does report having an [place] in 2011. She states that she developed an allergic reaction to GoLYTELY and was inadvertently given epinephrine IV which precipitated an [place]. She states she was transferred to heart center at that time and had a cardiac catheterization which showed normal coronary arteries. TRAVEL OUTSIDE OF THE [place] IN LAST 30 DAYS: No - HPI Onset: Last week Onset/Duration: Gradual Quality of pain: Sharp Severity: Mild Pain Level: 1 Associated symptoms: Weakness, Other - Chest wall pain. denies: Fever, Shortness of breath Exacerbated by: Denies Relieved by: Denies Similar symptoms previously: No Recently seen / treated by doctor: No - Related Data Allergies/Adverse Reactions: hydromorphone [From Dilaudid] Allergy (Severe, Verified 12/15/18 16:03) SOB,HEAVY CHEST polyethylene glycol [From Golytely] Allergy (Severe, Verified 12/15/18 16:03) Anaphylaxis tramadol Allergy (Severe, Verified 12/15/18 16:03) CONFUSION FOR 2 DAYS codeine Allergy (Intermediate, Verified 12/15/18 16:03) ITCHING, HIVES diphenhydramine [From Benadryl] Allergy (Intermediate, Verified 12/15/18 16:03) Hives morphine Allergy (Verified 12/15/18 16:03) Past Medical History - General Information source: Patient - Social History Smoking Status: Current Every Day Smoker Chew tobacco use (# tins/day): No Frequency of alcohol use: None Drug Abuse: None Lives with: Alone Family History: Reviewed & Not Pertinent, CAD, DM Patient has suicidal ideation: No Patient has homicidal ideation: No - Past Medical History Cardiac Medical History: Reports: Hx Heart Attack - 2013 caused by epinephrine Denies: Hx Coronary Artery Disease, Hx Hypertension Pulmonary Medical History: Reports: Hx Sleep Apnea Denies: Hx Asthma, Hx Bronchitis, Hx COPD, Hx Pneumonia Neurological Medical History: Denies: Hx Cerebrovascular Accident, Hx Seizures Renal/ Medical History: Denies: Hx Peritoneal Dialysis Musculoskeletal Medical History: Denies Hx Arthritis Psychiatric Medical History: Reports: Hx Post Traumatic Stress Disorder Past Surgical History: Reports: Hx Appendectomy, Hx Cholecystectomy, Hx Orthopedic Surgery, Other - Panniculectomy, carpal tunnel 2, shoulder surgery 2, bladder sling, spine. Denies: Hx Hysterectomy - Immunizations Hx Diphtheria, Pertussis, Tetanus Vaccination: Yes Review of Systems - Review of Systems Constitutional: denies: Chills, Fever EENT: No symptoms reported Cardiovascular: Lightheaded. denies: Palpitations, Heart racing, Orthopnea, Syn cope, Edema Respiratory: No symptoms reported Gastrointestinal: No symptoms reported Genitourinary: No symptoms reported Female Genitourinary: No symptoms reported Musculoskeletal: See HPI Skin: No symptoms reported Hematologic/Lymphatic: No symptoms reported Physical Exam - Vital signs Vitals: Temp Pulse Resp BP Pulse Ox 98.1 F 79 15 118/78 96 12/15/18 15:48 12/15/18 15:48 12/15/18 15:48 12/15/18 15:48 12/15/18 15:48 Notes: Physical exam: GENERAL: Patient is alert and oriented x3, no acute distress HEAD: Atraumatic, normocephalic. EYES: Pupils equal round and reactive to light, extraocular movements intact, sclera anicteric, conjunctiva are normal. ENT: TMs normal, nares patent, oropharynx clear without exudates. Moist mucous membranes. NECK: Normal range of motion, supple without obvious mass or JVD. LUNGS: Breath sounds clear to auscultation bilaterally and equal. No wheezes rales or rhonchi. HEART: Regular rate and rhythm without murmurs, rubs or gallops. ABDOMEN: Soft, normoactive bowel sounds. No tenderness to palpation. No guarding, no rebound. No masses appreciated. EXTREMITIES: Normal range of motion, no pitting or edema. No clubbing or cyanosis. NEUROLOGICAL: Cranial nerves II through XII grossly intact. Normal speech, moving all extremities. PSYCH: Normal mood, normal affect. SKIN: Warm, Dry, normal turgor, no rashes or lesions noted. Course - Re-evaluation Re-evalutation: 12/15/18 20:11 Note: On reassessment, the patient is doing well, she is joking and not in distress. She does have left chest wall pain when she takes in a deep breath and moves around. CTA of the chest shows no evidence of pulmonary emboli. Repeat EKG is sinus rhythm with no acute ST-T wave changes. There is no serial changes from EKG performed earlier. Her heart score is low probability (3). The nature of her previous MRI was that she had gotten some epinephrine intravenously at an incorrect dosage which precipitated vasospasm. Her coronary arteries at that time were normal. Her symptoms are very atypical for ACS. The plan will be for her to follow-up with primary care doctor I did discuss with her about cutting down on her smoking. I will give her a copy of today's lab tests and CT report. - Vital Signs Vital signs: Temp Pulse Resp BP Pulse Ox 98.1 F 79 18 118/78 96 12/15/18 15:48 12/15/18 15:48 12/15/18 17:41 12/15/18 15:48 12/15/18 17:51 - Laboratory Result Diagrams: 12/15/18 17:00 12/15/18 17:00 Laboratory results interpreted by me: 12/15/18 17:00 Creatine Kinase < 20 L - Diagnostic Test Radiology reviewed: Image reviewed, Reports reviewed - X-ray shows no pneumonia - EKG Interpretation by Me Rate: Normal Rhythm: NSR - EKG shows normal sinus rhythm with a ventricular rate with no acute ST-T wave changes. Discharge - Discharge Clinical Impression: Chest wall pain Condition: Stable Disposition: HOME, SELF-CARE Additional Instructions: As we discussed, the CTA shows no evidence of pulmonary emboli or pneumonia. Your labs would look very good. Your EKG was unchanged. Suspect you have got some inflammation of the chest wall. I want you to follow-up with Dr. Medrano in the next few days. Bring a copy of today's labs with you when you see Dr. Medrano. Take the medicine as prescribed. Return to the emergency room for any worsening pain, shortness of breath or any concerns or getting worse. Prescriptions: Ketorolac Tromethamine [Toradol 10 mg Tablet] 10 mg PO Q8HP PRN #10 tablet PRN Reason: Referrals: MELVA GUDINO MD [Primary Care Provider] - Follow up in 3-5 days
--- NOTE | 2018-12-15 20:02 | RADIOLOGY REPORT (SQ) ---
EXAM DESCRIPTION: CTA CHEST COMPLETED DATE/TIME: 12/15/2018 7:06 pm REASON FOR STUDY: chest pain COMPARISON: Chest x-ray 12/15/2018. CT chest noncontrast 06/16/2017. TECHNIQUE: CT scan of the chest performed using helical scanning technique with dynamic intravenous contrast injection. Images reviewed with lung, soft tissue and bone windows. Reconstructed coronal and sagittal MPR images reviewed. Additional 3 dimensional post-processing performed to develop Maximal Intensity Projection images (FL P). All images stored on PACS. All CT scanners at this facility use dose modulation, iterative reconstruction, and/or weight based d osing when appropriate to reduce radiation dose to as low as reasonably achievable (ALARA). [facility]: Dose Right [facility]: CareDose [facility]: Dose Right [facility]: Teradose 4D [facility]: Enomaly CONTRAST TYPE AND DOSE: contrast/concentration: Isovue 350.00 mg/ml; Total Contrast Delivered: 70.0 ml; Total Saline Delivered: 60.0 ml Contrast bolus optimized for the pulmonary arteries. Not diagnostic for the aorta. RENAL FUNCTION: Creatinine 0.58 RADIATION DOSE: CT Rad equipment meets quality standard of care and radiation dose reduction techniq ues were employed. CTDIvol: 14.3 - 26.4 mGy. DLP: 497 mGy-cm. . LIMITATIONS: None. FINDINGS: LUNGS AND PLEURA: No consolidation, pleural effusion or pneumothorax. AORTA AND GREAT VESSELS: No thoracic aortic aneurysm. Contrast bolus not optimized for the aorta. HEART: No pericardial effusion. No significant coronary artery calcifications. PULMONARY ARTERIES: No emboli visualized in the main pulmonary arteries or the segmental branches. HILAR AND MEDIASTINAL STRUCTURES: No identified masses or abnormal nodes. HARDWARE: None in the chest. UPPER ABDOMEN: There is a moderate size hiatal hernia. Limited exam. THYROID AND OTHER SOFT TISSUES: No masses. No adenopathy. BONES: Multilevel degenerative changes at the spine. 3D MIPS: Confirm above findings. IMPRESSION: 1. No pulmonary emboli. No consolidation or pleural effusion. 2. Moderate hiatal hernia. COMMENT: Quality ID # [id number]: Final reports with documentation of one or more dose reduction techniques (e.g., Automated exposure control, adjustment of the mA and/or kV according to patient size, use of iterative reconstruction technique) TECHNICAL DOCUMENTATION: JOB ID: [id number] [place]-[id number] [employer]- All Rights Reserved Reading location - IP/workstation name: [email or web address]
[2018-12-15 21:07] VITALS: BP 94/56
--- NOTE | 2018-12-16 01:18 | EKG REPORT ---
SEVERITY:- NORMAL ECG - SINUS RHYTHM : Confirmed by: Elida Asencio MD 16-Dec-2018 01:18:23
== END 2018-12-15 20:30 | disposition home or self-care (01) ==
LOC: ER 15:34
DX: R07.89 Other chest pain (principal); R53.1 Weakness; I25.2 Old myocardial infarction; F17.200 Nicotine dependence, unspecified, uncomplicated
CPT/HCPCS: 93005; 99285; 96361; 96374; 36415; 84439; 82553; 82550; 84443; 85025; 80053; 84484; 84481; 71045; 71275; 93010; A9270; J1885; J7040

== ENCOUNTER 2018-12-19 13:13 | Day surgery (SDC) | payer MEDICARE, OTHER ==
[2018-12-19] MEDS: MIDAZOLAM 2 MG/2 ML INJ ONE ×2 (13:48→13:54)
[2018-12-19] MEDS: FENTANYL CITRATE INJ/PF 100 MCG/2 ML AMPUL ONE ×3 (13:50→13:56)
--- NOTE | 2018-12-19 14:01 | Operative Report ---
Operative Report DATE OF SURGERY: 12/19/18 Operative Report: The risks benefits and alternatives of the procedure explained to the patient in detail and informed consent is obtained.A GIF Olympus video scope was inserted into the patient's mouth and hypopharynx, the esophagus is identified intubated and insufflated, the scope was then advanced through the esophagus stomach and duodenum, retroflexion maneuver is done, the esophagus stomach and first and second portions of the duodenum examined. PREOPERATIVE DIAGNOSIS: Left upper quadrant pain POSTOPERATIVE DIAGNOSIS: Esophagitis. Gastritis status post biopsy rule out Helicobacter pylori. Her Chayo fundoplication is intact OPERATION: EGD with biopsy SURGEON: TAVO DOUGLAS ANESTHESIA: Moderate Sedation - 4 mg of Versed, 100 mcg of fentanyl. Conscious sedation monitoring time 30 minutes. TISSUE REMOVED OR ALTERED: As noted above. COMPLICATIONS: None. ESTIMATED BLOOD LOSS: None. INTRAOPERATIVE FINDINGS: As noted above. PROCEDURE: Patient tolerated the procedure well. No immediate postprocedure complications are noted. Patient discharged in good condition. Discharge date 12/19/2018. Discharge diet: Regular. Discharge activity: Regular. 2-3-week follow-up to discuss findings. Patient is instructed call the office or proceed to the emergency room should there be any further problems or questions. Wait on the pathology.
[2018-12-19 15:32] VITALS: BP 92/62
== END 2018-12-19 15:20 | disposition home or self-care (01) ==
LOC: END 13:13
PROVIDERS: ATTEND Internal Medicine Gastroenterology
DX: K20.9 Esophagitis, unspecified (principal); K29.70 Gastritis, unspecified, without bleeding; Z79.899 Other long term (current) drug therapy; Z88.5 Allergy status to narcotic agent; Z88.8 Allergy status to other drugs, medicaments and biological substances; Z09 Encounter for follow-up examination after completed treatment for conditions other than malignant neoplasm
CPT/HCPCS: 43239; 88305 ×2; 88312 ×2; J2250; J3010; J0171; J1200; J1610; J2310; J2405; J3490

== ENCOUNTER 2019-01-16 20:04 | Emergency (ER) | payer MEDICARE, OTHER ==
[2019-01-16] MEDS ORDERED: LIDOCAINE 1% INJ-PF (10 MG/ML) 30 ML SDV INJ ONE (23:25)
[2019-01-16] MEDS ORDERED: KETOROLAC TROMETHAMINE 60 MG/2 ML SDV IM ONE (23:25)
--- NOTE | 2019-01-16 23:27 | ER Document Report ---
ED Skin Rash/Insect Bite/Abscs - General Chief Complaint: Arm Pain Stated Complaint: GROWTH UNDER LEFT AR Time Seen by Provider: 01/16/19 23:20 Primary Care Provider: NIDIA DELUNA MD [ACTIVE STAFF] - Follow up as needed Notes: Patient is a 58-year-old female that comes to the emergency department for chief complaint of a painful swollen red area under her left arm, this was noticed first 3 days ago, she states last night it burst and drained some but it has worsened and still is painful. She has had some intermittent tiny amounts of drainage today. She denies fever or chills, she denies history of the same. She is not a diabetic. She denies any other complaints. TRAVEL OUTSIDE OF THE [place] IN LAST 30 DAYS: No - Related Data Allergies/Adverse Reactions: hydromorphone [From Dilaudid] Allergy (Severe, Verified 12/19/18 13:06) SOB,HEAVY CHEST polyethylene glycol [From Golytely] Allergy (Severe, Verified 12/19/18 13:06) Anaphylaxis tramadol Allergy (Severe, Verified 12/19/18 13:06) CONFUSION FOR 2 DAYS codeine Allergy (Intermediate, Verified 12/19/18 13:06) ITCHING, HIVES diphenhydramine [From Benadryl] Allergy (Intermediate, Verified 12/19/18 13:06) Hives morphine Allergy (Verified 12/19/18 13:06) Past Medical History - General Information source: Patient - Social History Smoking Status: Unknown if Ever Smoked Drug Abuse: None Lives with: Friend Family History: Reviewed & Not Pertinent, CAD, DM - Past Medical History Cardiac Medical History: Reports: Hx Heart Attack - 2013 CAUSED BY EPI (ANAPHYLA XIS FROM GOLYTELY) Denies: Hx Coronary Artery Disease, Hx Hypertension Pulmonary Medical History: Reports: Hx Pneumonia, Hx Sleep Apnea Denies: Hx Asthma, Hx Bronchitis, Hx COPD Neurological Medical History: Denies: Hx Cerebrovascular Accident, Hx Seizures Renal/ Medical History: Denies: Hx Peritoneal Dialysis Musculoskeletal Medical History: Denies Hx Arthritis Psychiatric Medical History: Reports: Hx Post Traumatic Stress Disorder Past Surgical History: Reports: Hx Appendectomy, Hx Cholecystectomy, Hx Orthopedic Surgery, Other - Panniculectomy, carpal tunnel 2, shoulder surgery 2, bladder sling, spine. Denies: Hx Hysterectomy - Immunizations Hx Diphtheria, Pertussis, Tetanus Vaccination: Yes Review of Systems - Review of Systems Constitutional: No symptoms reported EENT: No symptoms reported Cardiovascular: No symptoms reported Respiratory: No symptoms reported Gastrointestinal: No symptoms reported Genitourinary: No symptoms reported Female Genitourinary: No symptoms reported Musculoskeletal: No symptoms reported Skin: See HPI Hematologic/Lymphatic: No symptoms reported Neurological/Psychological: No symptoms reported Physical Exam - Vital signs Vitals: Temp Pulse Resp BP Pulse Ox 99.6 F 100 16 122/69 98 01/16/19 20:12 01/16/19 20:12 01/16/19 20:12 01/16/19 20:12 01/16/19 20:12 - Notes Notes: GENERAL: Alert, interacts well. Appears mildly uncomfortable but is not in distress. HEAD: Normocephalic, atraumatic. EYES: Pupils equal, round, and reactive to light. Extraocular movements intact. ENT: Oral mucosa moist, tongue midline. Oropharynx unremarkable. Airway patent. Nares patent, no nasal septal hematoma, TM's intact. NECK: Full range of motion. Supple. Trachea midline. LUNGS: Clear to auscultation bilaterally, no wheezes, rales, or rhonchi. No respiratory distress. HEART: Regular rate and rhythm. No murmur ABDOMEN: Soft, non-tender. Non-distended. Bowel sounds present in all 4 quadrants. GENITOURINARY: Deferred EXTREMITIES: Moves all 4 extremities spontaneously. No edema, normal radial and dorsalis pedis pulses bilaterally. No cyanosis. BACK: no cervical, thoracic, lumbar midline tenderness. No saddle anesthesia, normal distal neurovascular exam. NEUROLOGICAL: Alert and oriented x3. Normal speech. [cranial nerves II through XII grossly intact]. PSYCH: Normal affect, normal mood. SKIN: Left axillary area with a large, oval-shaped, indurated, fluctuant area consistent with abscess. Mild surrounding erythema. No nearby lymphadenopathy. Skin examination is unremarkable otherwise. Course - Re-evaluation Re-evalutation: Patient with a large abscess, this was drained and because it was deep after discussion this was packed. Patient's vital signs unremarkable, she is not a diabetic. She was placed on Bactrim, I discussed care, follow-up, and return precautions in detail with patient and friend at bedside. They state understanding and agreement. - Vital Signs Vital signs: Temp Pulse Resp BP Pulse Ox 99.6 F 86 18 97/58 L 95 01/16/19 20:12 01/17/19 01:06 01/17/19 01:06 01/17/19 01:06 01/17/19 01:06 Procedures - Incision and Drainage Left axillary area Type: Single Anesthetic type: 1% Lidocaine mL's of anesthetic: 7 Blade size: 11 I&D procedure: Shurclens applied, Iodoform packing placed, Sterile dressing applied Incision Method: Incision made by scalpel Amount/type of drainage: About 5 cc of purulent drainage expressed with mild amount of bleeding Discharge - Discharge Clinical Impression: Abscess Condition: Stable Disposition: HOME, SELF-CARE Additional Instructions: The abscess has been drained, the packing needs to come out in 2 days. Keep clean, clean with soap and water, apply absorbing dressing of the area. Take Bactrim antibiotic as prescribed. Follow-up with primary care. Return for any concerning or worsening symptoms including spreading redness, fever, or any other concerning symptoms. Prescriptions: Sulfamethoxazole/Trimethoprim [Bactrim Ds Tablet] 1 each PO BID #14 tablet Forms: Return to Work Referrals: NIDIA DELUNA MD [ACTIVE STAFF] - Follow up as needed
[2019-01-17] MEDS ORDERED: SULFAMETHOXAZOLE/TRIMETHOPRIM 800-160 MG TABLET PO ONE (00:37)
[2019-01-17 01:08] VITALS: BP 97/58
== END 2019-01-17 01:16 | disposition home or self-care (01) ==
LOC: ER 20:04
PROC: 0H9CXZZ Drainage of Left Upper Arm Skin, External Approach (ICD-10-PCS; principal; 2019-01-16)
DX: L02.414 Cutaneous abscess of left upper limb (principal); M79.602 Pain in left arm
CPT/HCPCS: 99283; 96372; 10060; A6266; J1885; J3490; A9270

== ENCOUNTER → 2019-01-21 | Outpatient (CLI) | payer MEDICARE, OTHER ==
--- NOTE | 2019-01-21 16:10 | RADIOLOGY REPORT (SQ) ---
EXAM DESCRIPTION: UGI SERIES COMPLETED DATE/TIME: 01/21/2019 9:20 am REASON FOR STUDY: PERSONAL HISTORY OF OTHER DISEASES OF THE DIGESTIVE SYSTEM Z87.19 PERSONAL HISTOR Y OF OTHER DISEASES OF THE DIGESTIVE S COMPARISON: None. TECHNIQUE: Under fluoroscopic guidance, patient ingested effervescent granules followed by thick and thin barium. Fluoroscopic spot images and routine radiographic images acquired and stored on PACS. 12 MM BARIUM TABLET GIVEN: The patient swallowed a 12 mm barium tablet which passed easily through th e esophagus and into the stomach without delay. LIMITATIONS: None. FLUOROSCOPY TIME: FLUORO TIME: 2.6 minutes 15 images saved to PACS. FINDINGS: NEUROMUSCULAR COORDINATION OF SWALLOW: Normal. No aspiration. ESOPHAGEAL MOTILITY: Normal peristalsis. No esophageal spasm. ESOPHAGEAL MUCOSA: Normal mucosa without masses or ulceration. GASTRO-ESOPHAGEAL JUNCTION: Surgical changes consistent with Keven fundoplication. Schatzki's ring present in distal esophagus. No hiatal hernia or reflux. STOMACH: Normal without masses or ulcerations. GASTRIC OUTLET: No delay in emptying. Normal pylorus. DUODENAL BULB: Normal distention. No spasm or ulceration. DUODENUM: Mucosa normal. No extrinsic masses or malrotation. PROXIMAL SMALL BOWEL: Mucosa normal. No extrinsic masses or malrotation. Rapid small-bowel transit time with barium seen in the colon in about 20 minutes from start of study. NON-GI TRACT STRUCTURES: No significant finding. OTHER: No other significant finding. IMPRESSION: SURGICAL CHANGES CONSISTENT WITH KEVEN FUNDOPLICATION. RAPID SMALL BOWEL TRANSIT TIME. OTHERWISE UNREMARKABLE STUDY. COMMENT: None Quality ID [id number]: Final reports for procedures using fluoroscopy that document radiation exposure geronimo gloria, or exposure time and number of fluorographic images (if radiation exposure indices are not avail able) TECHNICAL DOCUMENTATION: JOB ID: [id number] [email or web address]- All Rights Reserved Reading location - IP/workstation name: [email or web address] [id number]
== END ==
LOC: RAD 08:37
PROVIDERS: ATTEND Surgery
DX: K22.2 Esophageal obstruction (principal); Z87.19 Personal history of other diseases of the digestive system
CPT/HCPCS: 74247

== ENCOUNTER → 2019-02-04 | Day surgery (SDC) | payer MEDICARE, OTHER ==
[~2019-02-04] MED LIST changes: -DIPHENHYDRAMINE HCL 50 MG/ML VIAL ONE; -EPINEPHRINE INJ 1 MG/10 ML DISP.SYRIN ONE; -FLUMAZENIL INJ 0.5 MG/5 ML VIAL ONE; -GLUCAGON,HUMAN RECOMB 1 MG INJ ONE; +LIDOCAINE 2% JELLY 5 ML TUBE ONE; -NALOXONE HCL INJ/PF 0.4 MG/1 ML SDV ONE; -ONDANSETRON HCL INJ/PF 4 MG/2 ML SDV ONE
== END ==
LOC: END 09:35
PROVIDERS: ATTEND Surgery
DX: R10.9 Unspecified abdominal pain (principal); Z98.890 Other specified postprocedural states; Z88.5 Allergy status to narcotic agent; Z88.8 Allergy status to other drugs, medicaments and biological substances
CPT/HCPCS: 91010

== ENCOUNTER 2019-03-25 07:41 | Day surgery (SDC) | payer MEDICARE, OTHER ==
[~2019-03-25 07:41] MED LIST changes: +DIPHENHYDRAMINE HCL 50 MG/ML VIAL ONE; +EPINEPHRINE INJ 1 MG/10 ML DISP.SYRIN ONE; +FLUMAZENIL INJ 0.5 MG/5 ML VIAL ONE; +GLUCAGON,HUMAN RECOMB 1 MG INJ ONE; -LIDOCAINE 2% JELLY 5 ML TUBE ONE; +NALOXONE HCL INJ/PF 0.4 MG/1 ML SDV ONE; +ONDANSETRON HCL INJ/PF 4 MG/2 ML SDV ONE
[2019-03-25] MEDS: MIDAZOLAM 2 MG/2 ML INJ ONE ×2 (08:00→08:09)
[2019-03-25] MEDS: FENTANYL CITRATE INJ/PF 100 MCG/2 ML AMPUL ONE ×2 (08:02→08:06)
--- NOTE | 2019-03-25 09:34 | Discharge Summary ---
Discharge Summary (SDC) - Discharge Final Diagnosis: gerd Forms: Sedation D/C Instructions, Discharge POC-Surgical Service Treatment or Instructions: NO DRIVING TODAY FOLLOW UP DIRECTED BY YOUR MD SORE THROAT IS NORMAL FOR 2-3 DAYS LOOK FOR ANY SIGNS OF INFECTION Referrals: NIDIA DELUNA MD [ACTIVE STAFF] - 04/04/19 3:15 pm Respiratory Treatments at Home: Deep Breathing/Coughing Discharge Activity: Activity As Tolerated, No Driving Home Care Assistance: None Needed Report the Following to Your Physician Immediately: Shortness of Breath, Nausea, Vomiting, Increase in Pain, Fever over 101 Degrees, Unusual Bleeding, Redness, Swelling, Warmth, Increased Soreness, Drainage-Yellow, Drainage-[place], Drainage- Green, Drainage-Foul Smelling, Large Clots, Numbness, Tingling Sensation, Wheezing, Seizure, IV Site Infection Signs
--- NOTE | 2019-03-25 09:41 | Operative Report ---
Nonrecallable Operative Report DATE OF SURGERY: 03/25/19 PREOPERATIVE DIAGNOSIS: gerd POSTOPERATIVE DIAGNOSIS: gerd OPERATION: esophagogastroduodenoscopy SURGEON: NIDIA DELUNA ANESTHESIA: IV-Regional TISSUE REMOVED OR ALTERED: none COMPLICATIONS: none ESTIMATED BLOOD LOSS: 0 INTRAOPERATIVE FINDINGS: hiatal hernia., patent les PROCEDURE: see dictation
[2019-03-25 10:08] VITALS: BP 95/66
--- NOTE | 2019-04-05 10:50 | OPERATIVE REPORT E ---
Operative Report NAME: ZAHRA MCGOWAN : 1960 AGE: 58Y DATE OF SURGERY: 03/25/2019 ROOM: PREOPERATIVE DIAGNOSIS: GASTROESOPHAGEAL REFLUX DISEASE. POSTOPERATIVE DIAGNOSIS: GASTROESOPHAGEAL REFLUX DISEASE. OPERATIVE PROCEDURE: Esophagogastroduodenoscopy. SURGEON: NIDIA DELUNA M.D. INDICATIONS FOR PROCEDURE: This is a 58-year-old with longstanding history of gastroesophageal reflux disease with chronic reflux. This procedure is done to document her gastroesophageal reflux disease and identify any sources. PROCEDURE: The patient was brought to the endoscopy suite awake, alert, in stable condition, placed on the endoscopy table and then given IV sedation after appropriate timeout and site verification. She was placed in the left lateral decubitus position and the Olympus gastroscope was utilized for the procedure. It was passed through the posterior pharynx into the proximal esophagus and then traversed down the esophagus to the GE junction and into the stomach. The stomach was visualized and the scope continued to pass through the pylorus into the duodenum. As we withdrew the scope we identified any abnormal anatomy. The duodenum appeared to be normal. As we withdrew the scope through the pylorus that appeared to be normal. There was no evidence of any mucosal abnormalities of the duodenum or the distal stomach. The antrum appeared normal. We retroflexed the scope and identified the GE junction. The lower esophageal sphincter appeared to be widely patent. There was a moderate sized hiatal hernia. There was no evidence of any gastritis. We withdrew the scope into the distal esophagus. That appeared to be normal except for a widely patent lower esophageal sphincter and the moderate sized hiatal hernia. The distal esophagus appeared to be normal. As we withdrew the scope we identified the proximal esophagus, it also appeared to be normal without mucosal abnormalities. IMPRESSION: 1. Hiatal hernia. 2. Patent lower esophageal sphincter. BLOOD LOSS: Zero. The patient tolerated the procedure well, no complications. DICTATING PHYSICIAN: NIDIA DELUNA M.D. [id number] PHY#: [id number] ID: [id number] JOB#: [id number] ACCT: [id number] cc:NIDIA DELUNA M.D. >
== END 2019-03-25 09:45 | disposition home or self-care (01) ==
LOC: END 07:41
PROVIDERS: ATTEND Surgery
DX: K21.9 Gastro-esophageal reflux disease without esophagitis (principal); Z98.890 Other specified postprocedural states; K44.9 Diaphragmatic hernia without obstruction or gangrene
CPT/HCPCS: 43235; 91035; J2250; J3010; J0171; J1200; J1610; J2310; J2405; J3490

== ENCOUNTER 2019-04-30 09:40 | Inpatient (IN) | payer MEDICARE, OTHER ==
[2019-04-23 09:35] LABS: HEMATOCRIT 39.8 % (36.0-47.0); HEMOGLOBIN 13.8 g/dL (12.0-15.5); MEAN CORPUSCULAR HEMOGLOBIN 32.4 pg (27.0-33.4); MEAN CORPUSCULAR HGB CONC 34.6 g/dL (32.0-36.0); MEAN CORPUSCULAR VOLUME 94 fl (80-97); PLATELET COUNT 328 10^3/uL (150-450); RED BLOOD COUNT 4.25 10^6/uL (3.72-5.28); RED CELL DISTRIBUTION WIDTH 12.9 % (11.5-14.0); WHITE BLOOD COUNT 7.4 10^3/uL (4.0-10.5)
[2019-04-23 10:02] LABS: ANION GAP 9 (5-19); BLOOD UREA NITROGEN 16 mg/dL (7-20); CALCIUM 9.4 mg/dL (8.4-10.2); CARBON DIOXIDE 30 mmol/L (22-30); CHLORIDE 101 mmol/L (98-107); GLUCOSE 102 mg/dL (75-110); POTASSIUM 3.7 mmol/L (3.6-5.0); SODIUM 139.8 mmol/L (137-145)
--- NOTE | 2019-04-23 11:28 | RADIOLOGY REPORT (SQ) ---
EXAM DESCRIPTION: CHEST PA/LATERAL COMPLETED DATE/TIME: 04/23/2019 9:34 am REASON FOR STUDY: PRE-OP COMPARISON: 12/15/2018 EXAM PARAMETERS: NUMBER OF VIEWS: two views TECHNIQUE: Digital Frontal and Lateral radiographic views of the chest acquired. RADIATION DOSE: NA LIMITATIONS: none FINDINGS: LUNGS AND PLEURA: No opacities, masses or pneumothorax. No pleural effusion. MEDIASTINUM AND HILAR STRUCTURES: No masses or contour abnormalities. HEART AND VASCULAR STRUCTURES: Heart normal size. No evidence for failure. BONES: No acute findings. HARDWARE: None in the chest. OTHER: No other significant finding. IMPRESSION: NO SIGNIFICANT RADIOGRAPHIC FINDING IN THE CHEST. TECHNICAL DOCUMENTATION: JOB ID: [id number] [email or web address]- All Rights Reserved Reading location - IP/workstation name: [email or web address]
--- NOTE | 2019-04-23 22:01 | EKG REPORT ---
SEVERITY:- NORMAL ECG - SINUS RHYTHM : Confirmed by: Vic Storm 23-Apr-2019 22:00:33
[~2019-04-30 09:40] MED LIST changes: +CEFAZOLIN 2 GM/D5W RTU 2 GM/50 ML RTUPB IV ONE; +CEFAZOLIN 2 GM/D5W RTU 2 GM/50 ML RTUPB IV PRN; -DIPHENHYDRAMINE HCL 50 MG/ML VIAL ONE; -EPINEPHRINE INJ 1 MG/10 ML DISP.SYRIN ONE; -FLUMAZENIL INJ 0.5 MG/5 ML VIAL ONE; -GLUCAGON,HUMAN RECOMB 1 MG INJ ONE; -NALOXONE HCL INJ/PF 0.4 MG/1 ML SDV ONE; -ONDANSETRON HCL INJ/PF 4 MG/2 ML SDV ONE
[2019-04-30] MEDS: MIDAZOLAM 2 MG/2 ML INJ ONE ×2 (10:30→11:30)
[2019-04-30] MEDS ORDERED: FENTANYL CITRATE INJ/PF 100 MCG/2 ML AMPUL ONE (11:47)
[2019-04-30] MEDS ORDERED: MIDAZOLAM 2 MG/2 ML INJ ONE ×2 (11:47→11:53)
[2019-04-30] MEDS ORDERED: HYDROMORPHONE HCL INJ/PF 2 MG/ML AMPULE ONE (11:48)
[2019-04-30] MEDS ORDERED: PROPOFOL INJ 200 MG/20 ML VIAL IV ONE ×2 (11:48→11:54)
[2019-04-30] MEDS ORDERED: BUPIVACAINE HCL 0.25% /EPINEPHRINE INJ/PF 30 ML SDV ONE (11:52)
[2019-04-30] MEDS ORDERED: FENTANYL CITRATE INJ/PF 250 MCG/5 ML AMPULE ONE (11:53)
[2019-04-30] MEDS ORDERED: MEPERIDINE HCL/PF INJ 25 MG/1 ML DISP.SYRIN IV PRN (12:37)
[2019-04-30] MEDS ORDERED: FENTANYL CITRATE INJ/PF 100 MCG/2 ML AMPUL IV PRN ×3 (12:37)
[2019-04-30] MEDS ORDERED: PROMETHAZINE HCL INJ 25 MG/1 ML VIAL IV PRN ×2 (12:37)
[2019-04-30] MEDS ORDERED: ONDANSETRON HCL INJ/PF 4 MG/2 ML SDV IV PRN (12:37)
[2019-04-30] MEDS ORDERED: PROMETHAZINE HCL INJ 25 MG/1 ML VIAL ONE (13:59)
[2019-04-30] MEDS: FENTANYL CITRATE INJ/PF 100 MCG/2 ML AMPUL ONE ×4 (14:00→14:15)
--- NOTE | 2019-04-30 14:30 | OPERATIVE REPORT E ---
Operative Report NAME: ZAHRA MCGOWAN : 1960 AGE: 59Y DATE OF SURGERY: 04/30/2019 ROOM: PREOPERATIVE DIAGNOSIS: Failed Chayo fundoplication. POSTOPERATIVE DIAGNOSIS: Failed Chayo fundoplication. OPERATIVE PROCEDURE: Laparoscopic revision of failed Chayo fundoplication. SURGEON: NIDIA DELUNA M.D. SALON/SPA MANAGER: UYEN Juan, who was present during the entire case for wound retraction and wound closure. ANESTHESIA: General. INDICATIONS FOR SURGERY: This 59-year-old female who is approximately 2 years status post a laparoscopic Chayo fundoplication had recurrence of symptoms almost immediately after her initial operation. She has undergone upper endoscopy here as well as an upper GI which showed a fairly patulent lower esophageal sphincter with questionable hiatal hernia and continued reflux. She was, therefore, scheduled for this procedure. PROCEDURE: The patient was brought to the operating room in an awake, alert, and stable condition, placed on the operating table in supine position, induced under general anesthesia, and intubated. The abdomen was prepped and draped in the usual sterile manner for the procedure. After appropriate time out and site verification, a longitudinal incision was made just above where her umbilicus would be on her anterior abdominal wall. She had a previous history of a panniculectomy and she, therefore, had no anatomic umbilicus. A small longitudinal incision was made there and a Veress needle was placed into the abdominal cavity. Intra-abdominal visualization revealed no evidence of Veress needle or trocar injury. Two epigastric ports were placed under direct vision, a 5 and a 10, and two lateral 5 mm ports, all under direct vision. We used a liver retractor through the right lateral port to retract the left lobe of the liver anteriorly. Once we identified the hiatus in the previous surgical site, we noted that the gastric wrap had completely incarcerated itself up into the posterior mediastinum through the hiatus. We began with blunt and sharp dissection to mobilize the wrap, take down the adhesions to the left lobe of the liver anteriorly with Metzenbaum scissors and the LigaSure device, being careful not to injure the wall of the stomach. As we continued around, we mobilized the right side of the wrap from the posterior mediastinum and then the left side. This was all done with sharp and blunt dissection. Once we were able to completely mobilize the wrap circumferentially around the hiatus, we noted that it had incarcerated itself up into the posterior mediastinum. This took some more blunt and sharp dissection to mobilize the distal esophagus and wrap from the posterior mediastinum. This was done under sharp dissection, being careful not to injure the vagus nerves or injure the wall of the esophagus or the stomach. Once we were able to do that we were able to mobilize the distal esophagus up into the posterior mediastinum by taking down the avascular attachments with the LigaSure device and Metzenbaum scissors and bring the distal esophagus back down to the abdominal cavity. Once this was completed we identified the fact that she had a fairly large hiatal defect that either had come undone from the previous surgery or never closed. I used a 56 bougie dilator, passed it into the mouth with the tip in the stomach through the hiatus, and then closed the hiatus posteriorly around the bougie dilator with about 4 or 5 stitches of 0 Surgidac. Once this was completed the wrap was also somewhat loose and somewhat disrupted. I, therefore, took down the anterior portion of the wrap, identifying the old sutures, being careful again not to injure the wall of the stomach, and mobilizing the wrap on each side of the esophagus with blunt and sharp dissection. Once I was able to do this, I had to reposition the wrap a little higher as the wrap now was really around the cardia of the stomach and not around the esophagus. We were able to do this by mobilizing the stomach away from the posterior portion of the esophagus with blunt dissection, taking down the loose adhesions of the previous Chayo wrap. We reapproximated the fundus of the stomach to itself and the wall of the anterior esophagus with 2 stitches of 0-Surgidac suture, creating a floppy Chayo wrap around the distal esophagus about 2 cm above where it previously was. Once this was completed, and this was completed over the 56-Bulgarian bougie dilator, we then took a piece of BIO-A mesh from [employer] that had been precut for the esophageal hiatus, placed it into the peritoneum and then fixed it circumferentially around the les with AbsorbaTacks, being careful not to injure the pericardium or the aorta with the SurgiTacks, and they were absorbable SurgiTacks. This essentially completed the procedure, and the area was irrigated and suctioned dry. Hemostasis was noted to be intact. The ports were removed. The fascial defects from the 10 mm port sites were closed with 0 Vicryl in the fascia, and then all skin incisions were closed with intracuticular 4-0 Caprosyn, and Steri-Strips completed the procedure. Estimated blood loss was less than 25 mL. Sponge and needle counts were correct x2. The patient was awakened in the operating room, extubated, and transferred to recovery in stable condition, no complications. DICTATING PHYSICIAN: NIDIA DELUNA M.D. [id number] PHY#: [id number] ID: [id number] JOB#: [id number] ACCT: [id number] cc:NIDIA DELUNA M.D. >
[2019-04-30] MEDS ORDERED: MORPHINE SULFATE 10 MG/ML INJ IV PRN (16:35)
[2019-04-30] MEDS ORDERED: LIDOCAINE 2% INJ-PF (20 MG/ML) 2 ML AMPUL ONE (17:32)
[2019-04-30] MEDS ORDERED: DEXAMETHASONE SOD PHOSPHATE INJ 4 MG/1 ML VIAL ONE (17:32)
[2019-04-30] MEDS ORDERED: ONDANSETRON HCL INJ/PF 4 MG/2 ML SDV ONE (17:32)
[2019-04-30] MEDS ORDERED: GLYCOPYRROLATE 1 MG/5 ML VIAL ONE (17:32)
[2019-04-30] MEDS ORDERED: ROCURONIUM BROMIDE INJ 50 MG/5 ML VIAL IV ONE (17:32)
[2019-04-30] MEDS ORDERED: NEOSTIGMINE METHYLSULFATE 10 MG/10 ML VIAL ONE (17:32)
[2019-04-30] MEDS: POTASSI CL 20 MEQ/D5-1/2NS 1L 1,000 ML IV PRN (17:45)
[2019-04-30] MEDS: ONDANSETRON HCL INJ/PF 4 MG/2 ML SDV IV PRN (17:45)
[2019-04-30] MEDS: FENTANYL CITRATE INJ/PF 100 MCG/2 ML AMPUL IV PRN ×3 (18:10→23:30)
[2019-04-30] MEDS: FAMOTIDINE INJ/PF 20 MG/2 ML SDV IV SCH (23:31)
[2019-04-30] MEDS: ZOLPIDEM TARTRATE 5 MG TABLET PO SCH (23:31)
[2019-05-01] MEDS: FENTANYL CITRATE INJ/PF 100 MCG/2 ML AMPUL IV PRN ×5 (02:12→21:51)
[2019-05-01] MEDS: POTASSI CL 20 MEQ/D5-1/2NS 1L 1,000 ML IV PRN (04:18)
[2019-05-01 05:10] LABS: ABSOLUTE LYMPHOCYTES (AUTO) 1.1 10^3/uL (0.5-4.7); BASOPHILS % (AUTO) 0.2 % (0-2); HEMATOCRIT 36.5 % (36.0-47.0); HEMOGLOBIN 12.5 g/dL (12.0-15.5); LYMPHOCYTES % (AUTO) 9.2 % (13-45); MEAN CORPUSCULAR HEMOGLOBIN 32.4 pg (27.0-33.4); MEAN CORPUSCULAR HGB CONC 34.4 g/dL (32.0-36.0); MEAN CORPUSCULAR VOLUME 94 fl (80-97); MONOCYTES % (AUTO) 8.3 % (3-13); PLATELET COUNT 272 10^3/uL (150-450); RED BLOOD COUNT 3.87 10^6/uL (3.72-5.28); RED CELL DISTRIBUTION WIDTH 12.6 % (11.5-14.0); SEGMENTED NEUTROPHILS % (AUTO) 82.3 % (42-78); TOTAL CELLS COUNTED % (AUTO) 100 %; WHITE BLOOD COUNT 12.2 10^3/uL (4.0-10.5)
[2019-05-01 05:30] LABS: ALANINE AMINOTRANSFERASE 31 U/L (9-52); ALBUMIN 3.3 g/dL (3.5-5.0); ALKALINE PHOSPHATASE 88 U/L (38-126); ANION GAP 7 (5-19); ASPARTATE AMINO TRANSFERASE 32 U/L (14-36); BILIRUBIN,DIRECT 0.2 mg/dL (0.0-0.4); BILIRUBIN,TOTAL 1.1 mg/dL (0.2-1.3); BLOOD UREA NITROGEN 6 mg/dL (7-20); CALCIUM 8.9 mg/dL (8.4-10.2); CARBON DIOXIDE 26 mmol/L (22-30); CHLORIDE 105 mmol/L (98-107); GLUCOSE 141 mg/dL (75-110); POTASSIUM 4.2 mmol/L (3.6-5.0); SODIUM 138.1 mmol/L (137-145); TOTAL PROTEIN 5.8 g/dL (6.3-8.2)
--- NOTE | 2019-05-01 08:02 | PDOC PROGRESS REPORT ---
Subjective Progress Note for:: 05/01/19 Subjective:: c/o neck pain Reason For Visit: K44.9 DIAPHRAGMATIC HERNIA WITHOUT OBSTRUCTION OR Physical Exam Vital Signs: Temp Pulse Resp BP Pulse Ox 98.6 F 74 18 110/70 98 05/01/19 00:00 05/01/19 00:00 05/01/19 00:00 05/01/19 00:00 05/01/19 00:00 Intake & Output 04/30/19 05/01/19 05/02/19 06:59 06:59 06:59 Intake Total 3931 Output Total 25 Balance 3906 Weight 48.5 kg General appearance: PRESENT: no acute distress Head exam: PRESENT: normocephalic Eye exam: PRESENT: EOMI Mouth exam: PRESENT: moist Neck exam: PRESENT: full ROM Respiratory exam: PRESENT: clear to auscultation ana rosa Cardiovascular exam: PRESENT: RRR Pulses: PRESENT: normal radial pulses, normal femoral pulses GI/Abdominal exam: PRESENT: soft Rectal exam: PRESENT: deferred Extremities exam: PRESENT: full ROM Musculoskeletal exam: PRESENT: full ROM Neurological exam: PRESENT: alert, awake, oriented to person, oriented to place Psychiatric exam: PRESENT: appropriate affect Skin exam: PRESENT: dry Results Laboratory Results: 05/01/19 04:27 05/01/19 04:27 05/01/19 05/01/19 04:27 04:27 WBC 12.2 H RBC 3.87 Hgb 12.5 Hct 36.5 MCV 94 MCH 32.4 MCHC 34.4 RDW 12.6 Plt Count 272 Seg Neutrophils % 82.3 H Lymphocytes % 9.2 L Monocytes % 8.3 Eosinophils % 0.0 Basophils % 0.2 Absolute Neutrophils 10.0 H Absolute Lymphocytes 1.1 Absolute Monocytes 1.0 Absolute Eosinophils 0.0 Absolute Basophils 0.0 Sodium 138.1 Potassium 4.2 Chloride 105 Carbon Dioxide 26 Anion Gap 7 BUN 6 L Creatinine 0.45 L Est GFR ( Amer) > 60 Est GFR (Non-Af Amer) > 60 Glucose 141 H Calcium 8.9 Total Bilirubin 1.1 AST 32 ALT 31 Alkaline Phosphatase 88 Total Protein 5.8 L Albumin 3.3 L Impressions: Chest X-Ray 04/23/19 00:00 IMPRESSION: NO SIGNIFICANT RADIOGRAPHIC FINDING IN THE CHEST. Assessment & Plan - Plan Summary Plan Summary: Status post laparoscopic revision of Chayo fundoplication and hiatal hernia repair Op day 1 patient is doing well does have some complaints of the neck pain se condary to diaphragmatic hernia repair no difficulties T swallowing Today will advance diet to full liquid we will start her on iv ativian for pain augmentation and mucle spam
[2019-05-01] MEDS: LORAZEPAM INJ 2 MG/1 ML VIAL IV SCH ×4 (08:51→23:12)
[2019-05-01] MEDS: FAMOTIDINE INJ/PF 20 MG/2 ML SDV IV SCH ×2 (11:42→21:52)
[2019-05-01] MEDS: ONDANSETRON HCL INJ/PF 4 MG/2 ML SDV IV PRN (19:31)
[2019-05-01] MEDS: ZOLPIDEM TARTRATE 5 MG TABLET PO SCH (21:50)
[2019-05-02] MEDS: FENTANYL CITRATE INJ/PF 100 MCG/2 ML AMPUL IV PRN ×5 (01:11→21:40)
[2019-05-02] MEDS: LORAZEPAM INJ 2 MG/1 ML VIAL IV SCH ×4 (06:44→23:35)
[2019-05-02 08:00] LABS: ABSOLUTE BASOPHILS # (AUTO) 0.1 10^3/uL (0.0-0.2); ABSOLUTE EOSINOPHILS # (AUTO) 0.1 10^3/uL (0.0-0.6); ABSOLUTE LYMPHOCYTES (AUTO) 2.5 10^3/uL (0.5-4.7); ABSOLUTE MONOCYTES (AUTO) 0.7 10^3/uL (0.1-1.4); MONOCYTES % (AUTO) 8.1 % (3-13); TOTAL CELLS COUNTED % (AUTO) 100 %
[2019-05-02] MEDS ORDERED: LORAZEPAM INJ 2 MG/1 ML VIAL ONE (08:01)
[2019-05-02 08:15] LABS: BLOOD UREA NITROGEN 4 mg/dL (7-20); CALCIUM 8.7 mg/dL (8.4-10.2); CARBON DIOXIDE 30 mmol/L (22-30); CHLORIDE 105 mmol/L (98-107); GLUCOSE 90 mg/dL (75-110); POTASSIUM 3.8 mmol/L (3.6-5.0); SODIUM 138.7 mmol/L (137-145)
[2019-05-02 08:17] LABS: ABSOLUTE NEUT (AUTO) 4.8 10^3/uL (1.7-8.2); BASOPHILS % (AUTO) 0.8 % (0-2); EOSINOPHILS % (AUTO) 1.4 % (0-6); HEMATOCRIT 34.2 % (36.0-47.0); LYMPHOCYTES % (AUTO) 30.9 % (13-45); MEAN CORPUSCULAR VOLUME 94 fl (80-97); PLATELET COUNT 233 10^3/uL (150-450); RED BLOOD COUNT 3.64 10^6/uL (3.72-5.28); RED CELL DISTRIBUTION WIDTH 12.7 % (11.5-14.0); SEGMENTED NEUTROPHILS % (AUTO) 58.8 % (42-78); WHITE BLOOD COUNT 8.2 10^3/uL (4.0-10.5)
[2019-05-02 08:20] LABS: ANION GAP 4 (5-19)
--- NOTE | 2019-05-02 08:20 | PDOC PROGRESS REPORT ---
Subjective Progress Note for:: 05/02/19 Subjective:: still with some neck pain anibal clears didnt eat full liqiuids?? Reason For Visit: K44.9 DIAPHRAGMATIC HERNIA WITHOUT OBSTRUCTION OR Physical Exam Vital Signs: Temp Pulse Resp BP Pulse Ox 98.7 F 82 17 104/55 L 94 05/01/19 23:43 05/01/19 23:43 05/01/19 23:43 05/01/19 23:43 05/01/19 23:43 Intake & Output 05/01/19 05/02/19 05/03/19 06:59 06:59 06:59 Intake Total 3931 1979 Output Total 25 Balance 3906 1979 Weight 48.5 kg 47.8 kg General appearance: PRESENT: no acute distress Head exam: PRESENT: normocephalic Eye exam: PRESENT: EOMI Mouth exam: PRESENT: moist Neck exam: PRESENT: full ROM Respiratory exam: PRESENT: clear to auscultation ana rosa Cardiovascular exam: PRESENT: RRR Pulses: PRESENT: normal femoral pulses, normal dorsalis pedis pul GI/Abdominal exam: PRESENT: soft Rectal exam: PRESENT: deferred Musculoskeletal exam: PRESENT: full ROM Neurological exam: PRESENT: alert, awake, oriented to person, oriented to place Psychiatric exam: PRESENT: appropriate affect Skin exam: PRESENT: dry Results Impressions: Chest X-Ray 04/23/19 00:00 IMPRESSION: NO SIGNIFICANT RADIOGRAPHIC FINDING IN THE CHEST. Assessment & Plan - Plan Summary Plan Summary: s/p revision of kailey fundoplicatiion still with some abd pain now anibal clears didnt get full liquids yesterday will check labs today' home if anibal full liqluids.
[2019-05-02] MEDS ORDERED: LORAZEPAM INJ 2 MG/1 ML VIAL IV ONE (09:00)
[2019-05-02] MEDS: FAMOTIDINE INJ/PF 20 MG/2 ML SDV IV SCH ×2 (11:10→21:41)
[2019-05-02] MEDS: ZOLPIDEM TARTRATE 5 MG TABLET PO SCH (21:39)
[2019-05-03] MEDS: FENTANYL CITRATE INJ/PF 100 MCG/2 ML AMPUL IV PRN (03:17)
[2019-05-03] MEDS: LORAZEPAM INJ 2 MG/1 ML VIAL IV SCH (06:00)
[2019-05-03] MEDS: ONDANSETRON HCL INJ/PF 4 MG/2 ML SDV IV PRN (08:13)
[2019-05-03] MEDS ORDERED: FENTANYL CITRATE INJ/PF 100 MCG/2 ML AMPUL IV PRN (08:25)
[2019-05-03] MEDS ORDERED: LORAZEPAM INJ 2 MG/1 ML VIAL IV PRN (08:26)
--- NOTE | 2019-05-03 08:26 | PDOC PROGRESS REPORT ---
Subjective Progress Note for:: 05/03/19 Subjective:: c/o nausea appears sedated Reason For Visit: HIATAL HERNIA Physical Exam Vital Signs: Temp Pulse Resp BP Pulse Ox 98.5 F 84 16 100/63 94 05/03/19 07:25 05/03/19 07:25 05/03/19 07:25 05/03/19 07:25 05/03/19 07:25 Intake & Output 05/02/19 05/03/19 05/04/19 06:59 06:59 06:59 Intake Total 1979 1230 Balance 1979 1230 Weight 47.8 kg 47.8 kg General appearance: PRESENT: no acute distress Head exam: PRESENT: normocephalic Eye exam: PRESENT: EOMI Ear exam: PRESENT: normal external ear exam Mouth exam: PRESENT: moist Neck exam: PRESENT: full ROM Respiratory exam: PRESENT: clear to auscultation ana rosa Cardiovascular exam: PRESENT: RRR Pulses: PRESENT: normal radial pulses, normal femoral pulses GI/Abdominal exam: PRESENT: normal bowel sounds, soft Rectal exam: PRESENT: deferred Musculoskeletal exam: PRESENT: full ROM Neurological exam: PRESENT: alert, awake, oriented to person Skin exam: PRESENT: dry Results Laboratory Results: 05/02/19 07:43 05/02/19 07:43 Impressions: Chest X-Ray 04/23/19 00:00 IMPRESSION: NO SIGNIFICANT RADIOGRAPHIC FINDING IN THE CHEST. Assessment & Plan - Plan Summary Plan Summary: still with nausea neck pain better vomited this am appears sedated will decrease decrease ativan and fentyl add toradol cont current rx ugi on sunday if still has difficulty swallowing.
[2019-05-03] MEDS ORDERED: KETOROLAC TROMETHAMINE INJ/PF 30 MG/1 ML SDV IV SCH (12:00)
[2019-05-03] MEDS: KETOROLAC TROMETHAMINE INJ/PF 30 MG/1 ML SDV IM SCH ×3 (12:19→23:23)
[2019-05-03] MEDS: MEPERIDINE HCL/PF INJ 25 MG/1 ML DISP.SYRIN IM PRN (15:52)
[2019-05-03] MEDS: LORAZEPAM 1 MG TABLET PO PRN (20:40)
[2019-05-03] MEDS: ONDANSETRON 4 MG TAB.RAPDIS PO PRN (22:28)
[2019-05-03] MEDS: KETOROLAC TROMETHAMINE 10 MG TABLET PO PRN (22:28)
[2019-05-03] MEDS: ZOLPIDEM TARTRATE 5 MG TABLET PO SCH (22:28)
[2019-05-04] MEDS: MEPERIDINE HCL/PF INJ 25 MG/1 ML DISP.SYRIN IM PRN (00:47)
[2019-05-04] MEDS: LORAZEPAM 1 MG TABLET PO PRN ×2 (02:35→15:29)
[2019-05-04] MEDS: KETOROLAC TROMETHAMINE INJ/PF 30 MG/1 ML SDV IM SCH ×4 (05:01→23:27)
[2019-05-04] MEDS: KETOROLAC TROMETHAMINE 10 MG TABLET PO PRN (15:29)
--- NOTE | 2019-05-04 16:57 | PDOC PROGRESS REPORT ---
Subjective Progress Note for:: 05/04/19 Reason For Visit: HIATAL HERNIA Physical Exam Vital Signs: Temp Pulse Resp BP Pulse Ox 98.6 F 71 16 102/64 98 05/04/19 16:00 05/04/19 16:00 05/04/19 16:00 05/04/19 16:00 05/04/19 16:00 Intake & Output 05/03/19 05/04/19 05/05/19 06:59 06:59 06:59 Intake Total 1230 1420 720 Balance 1230 1420 720 Weight 47.8 kg 47.8 kg Results Laboratory Results: 05/02/19 07:43 05/02/19 07:43 Impressions: Chest X-Ray 04/23/19 00:00 IMPRESSION: NO SIGNIFICANT RADIOGRAPHIC FINDING IN THE CHEST. Assessment & Plan - Plan Summary Plan Summary: This is a 59-year-old female status post redo hiatal hernia repair and Chayo fundoplication. The patient reports that she is slowly improving. She still reports pain, and requests IV pain medications. She reports that when she swallows she feels like it "gets stuck" at the level of her xiphoid process. I have ensured her that this is normal, considering her recent operation. The patient denies any vomiting today. She denies shortness of breath, chest pain, palpitations, dyspnea. I have encouraged her to get out of bed and ambulate. I have encouraged her to use her incentive spirometer. Continue with full liquid diet for now. Discharge home once the patient's pain is controlled and she is tolerating full liquids.
[2019-05-04] MEDS: ONDANSETRON 4 MG TAB.RAPDIS PO PRN (17:29)
[2019-05-04] MEDS: ZOLPIDEM TARTRATE 5 MG TABLET PO SCH (21:16)
[2019-05-05] MEDS: KETOROLAC TROMETHAMINE 10 MG TABLET PO PRN (04:02)
[2019-05-05] MEDS: LORAZEPAM 1 MG TABLET PO PRN (04:02)
[2019-05-05] MEDS: KETOROLAC TROMETHAMINE INJ/PF 30 MG/1 ML SDV IM SCH (05:24)
--- NOTE | 2019-05-05 07:41 | PDOC PROGRESS REPORT ---
Subjective Progress Note for:: 05/05/19 Subjective:: feels better, anibal full liquids Reason For Visit: HIATAL HERNIA Physical Exam Vital Signs: Temp Pulse Resp BP Pulse Ox 98.6 F 74 16 96/57 L 96 05/04/19 23:35 05/04/19 23:35 05/04/19 23:35 05/04/19 23:35 05/04/19 23:35 Intake & Output 05/04/19 05/05/19 05/06/19 06:59 06:59 06:59 Intake Total 1420 1440 Balance 1420 1440 Weight 47.8 kg 47.8 kg General appearance: PRESENT: no acute distress Head exam: PRESENT: normocephalic Eye exam: PRESENT: EOMI Ear exam: PRESENT: normal external ear exam Mouth exam: PRESENT: moist Neck exam: PRESENT: full ROM Respiratory exam: PRESENT: clear to auscultation ana rosa Cardiovascular exam: PRESENT: RRR Pulses: PRESENT: normal radial pulses, normal femoral pulses GI/Abdominal exam: PRESENT: normal bowel sounds, soft Rectal exam: PRESENT: deferred Extremities exam: PRESENT: full ROM Musculoskeletal exam: PRESENT: full ROM Neurological exam: PRESENT: alert, awake, oriented to person, oriented to place Psychiatric exam: PRESENT: appropriate affect Skin exam: PRESENT: dry Results Laboratory Results: 05/02/19 07:43 05/02/19 07:43 Impressions: Chest X-Ray 04/23/19 00:00 IMPRESSION: NO SIGNIFICANT RADIOGRAPHIC FINDING IN THE CHEST. Assessment & Plan - Plan Summary Plan Summary: feels better anibal full liquids will plan on dc home today.
--- NOTE | 2019-05-05 09:59 | DISCHARGE SUMMARY E ---
Discharge Summary NAME: ZAHRA MCGOWAN : 1960 AGE: 59Y ADMITTED: 04/30/2019 DISCHARGED: 05/05/2019 REASON FOR ADMISSION: Patient was admitted for an elective laparoscopic revision of a failed Chayo fundoplication. PROCEDURE AND HOSPITAL COURSE: This is a 59-year-old female who is 2 years status post a laparoscopic Chayo fundoplication with recurrence of symptoms almost immediately after initial operation. She has undergone endoscopy here as well as an upper GI which she had a fairly patulent lower esophageal sphincter with a hiatal hernia. She was taken to the operating room on the day of admission for a laparoscopic revision. At that time, she was noted to have much of her stomach incarcerated up in her chest and this was repaired as well as a repair of her diaphragmatic hiatus. Subsequent to that, she has had a benign postop course, however, it was complicated by pain control secondary to her multiple medication allergies. However, during her stay, she slowly improved each day, initially having difficulty swallowing which has improved throughout her hospital course. She has remained afebrile with stable vital signs throughout her hospital course and has had a normal white blood count. At the time of discharge she was tolerated a full liquid diet. She is up ambulating on the floor. She has been off of her IV fluids for 24 hours and feels ready for discharge home. She will be given a 3 day course of Toradol for pain and she will resume her own medications at home. She will be given a followup appointment with me about a week after discharge. FINAL DIAGNOSIS: GASTROESOPHAGEAL REFLUX DISEASE WITH FAILED CHAYO FUNDOPLICATION. DICTATING PHYSICIAN: NIDIA DELUNA M.D. [id number] VALENTINO#: [id number] ID: [id number] JOB#: [id number] ACCT: [id number] cc:NIDIA DELUNA M.D. >
[2019-05-05 10:44] VITALS: BP 90/60
== END 2019-05-05 12:21 | disposition home or self-care (01) | DRG 328 ==
LOC: OROUT 09:40 → 4N 15:39 → OROUT 16:35
PROVIDERS: ADMIT Surgery; ATTEND Surgery
PROC: 0BUT4JZ Supplement Diaphragm with Synthetic Substitute, Percutaneous Endoscopic Approach (ICD-10-PCS; 2019-04-30)
PROC: 0DV44ZZ Restriction of Esophagogastric Junction, Percutaneous Endoscopic Approach (ICD-10-PCS; principal; 2019-04-30 11:30)
DX: K44.9 Diaphragmatic hernia without obstruction or gangrene (principal); Z79.01 Long term (current) use of anticoagulants; F17.200 Nicotine dependence, unspecified, uncomplicated; F32.9 Major depressive disorder, single episode, unspecified; G47.00 Insomnia, unspecified; K21.9 Gastro-esophageal reflux disease without esophagitis; R13.10 Dysphagia, unspecified
CPT/HCPCS: 36415; 71046; 790; 80048; 80053; 85025; 85027; 93005; 93010; 94799; C1781; J0690; J1100; J1170; J1885; J2060; J2175; J2250; J2405; J2550; J2704; J2710; J3010; J3480; J3490; S0028; S0119

== ENCOUNTER 2019-05-07 15:10 | Emergency (ER) | payer MEDICARE ==
--- NOTE | 2019-05-07 15:59 | ER Document Report ---
ED Medical Screen (RME) - General Chief Complaint: Chest Pain Stated Complaint: CHEST PAIN Time Seen by Provider: 05/07/19 15:43 Primary Care Provider: MICHELLE BLANTON MD [Primary Care Provider] - Follow up as needed Mode of Arrival: Ambulatory Information source: Patient Notes: Patient is a 59-year-old female presented to the emergency department with chief complaint of upper abdominal pain. Patient reports she had a hiatal hernia repair done approximately [address] Garcia. She states increased pain and nausea since then. She reports she is now vomiting a clear substance. Exam: Tenderness to the epigastric region. I have greeted and performed a rapid initial assessment of this patient. A comprehensive ED assessment and evaluation of the patient, analysis of test results and completion of the medical decision making process will be conducted by additional ED providers. I have specifically instructed the patient or family members with the patient to immediately return to any nursing staff should anything change in the patient's condition or with their chief complaint. This medical record was dictated with voice recognizing software. There may be grammatical, syntax errors that are unintended. TRAVEL OUTSIDE OF THE [place] IN LAST 30 DAYS: No - Related Data Allergies/Adverse Reactions: hydromorphone [From Dilaudid] Allergy (Severe, Verified 05/07/19 15:13) SOB,HEAVY CHEST polyethylene glycol [From Golytely] Allergy (Severe, Verified 05/07/19 15:13) Anaphylaxis tramadol Allergy (Severe, Verified 05/07/19 15:13) CONFUSION FOR 2 DAYS codeine Allergy (Intermediate, Verified 05/07/19 15:13) ITCHING, HIVES diphenhydramine [From Benadryl] Allergy (Intermediate, Verified 05/07/19 15:13) Hives morphine Allergy (Verified 05/07/19 15:13) Past Medical History - Social History Chew tobacco use (# tins/day): No Frequency of alcohol use: None Drug Abuse: None - Past Medical History Cardiac Medical History: Reports: Hx Heart Attack - 2012 CAUSED BY EPI (ANAPHYLAXIS FROM GOLYTELY) Denies: Hx Coronary Artery Disease, Hx Hypertension Pulmonary Medical History: Reports: Hx Pneumonia - HX SEP 2018, Hx Sleep Apnea Denies: Hx Asthma, Hx Bronchitis, Hx COPD Neurological Medical History: Denies: Hx Cerebrovascular Accident, Hx Seizures Renal/ Medical History: Denies: Hx Peritoneal Dialysis GI Medical History: Reports: Hx Gastroesophageal Reflux Disease, Hx Hiatal Hernia Musculoskeltal Medical History: Denies Hx Arthritis Psychiatric Medical History: Reports: Hx Post Traumatic Stress Disorder Past Surgical History: Reports: Hx Abdominal Surgery, Hx Appendectomy, Hx Breast Surgery - reduction, Hx Cholecystectomy, Hx Genitourinary Surgery - bladder sling, Hx Gynecologic Surgery - D & C, Hx Orthopedic Surgery, Other - P anniculectomy, carpal tunnel 2, shoulder surgery 2, bladder sling, spine. Denies: Hx Hysterectomy - Immunizations Hx Diphtheria, Pertussis, Tetanus Vaccination: Yes History of Influenza Vaccine for 07/2017 - 12/2017 Season: No Influenza Administration Date for 07/2017 - 12/2017 Season: 07/29/18 Physical Exam - Vital signs Vitals: Temp Pulse Resp BP Pulse Ox 97.9 F 74 18 110/69 98 05/07/19 15:25 05/07/19 15:25 05/07/19 15:25 05/07/19 15:25 05/07/19 15:25 Course - Vital Signs Vital signs: Temp Pulse Resp BP Pulse Ox 97.9 F 74 18 110/69 98 05/07/19 15:25 05/07/19 15:25 05/07/19 15:25 05/07/19 15:25 05/07/19 15:25 - Laboratory Result Diagrams: 05/07/19 16:03 05/07/19 16:03 Doctor's Discharge - Discharge Referrals: MICHELLE BLANTON MD [Primary Care Provider] - Follow up as needed
[2019-05-07 16:20] LABS: ABSOLUTE BASOPHILS # (AUTO) 0.1 10^3/uL (0.0-0.2); ABSOLUTE EOSINOPHILS # (AUTO) 0.3 10^3/uL (0.0-0.6); ABSOLUTE LYMPHOCYTES (AUTO) 1.9 10^3/uL (0.5-4.7); ABSOLUTE MONOCYTES (AUTO) 0.5 10^3/uL (0.1-1.4); ABSOLUTE NEUT (AUTO) 5.4 10^3/uL (1.7-8.2); BASOPHILS % (AUTO) 0.9 % (0-2); EOSINOPHILS % (AUTO) 3.9 % (0-6); HEMATOCRIT 39.3 % (36.0-47.0); HEMOGLOBIN 13.7 g/dL (12.0-15.5); LYMPHOCYTES % (AUTO) 22.8 % (13-45); MEAN CORPUSCULAR HEMOGLOBIN 32.6 pg (27.0-33.4); MEAN CORPUSCULAR HGB CONC 34.8 g/dL (32.0-36.0); MEAN CORPUSCULAR VOLUME 94 fl (80-97); MONOCYTES % (AUTO) 5.8 % (3-13); PLATELET COUNT 346 10^3/uL (150-450); RED BLOOD COUNT 4.19 10^6/uL (3.72-5.28); RED CELL DISTRIBUTION WIDTH 12.4 % (11.5-14.0); SEGMENTED NEUTROPHILS % (AUTO) 66.6 % (42-78); TOTAL CELLS COUNTED % (AUTO) 100 %; WHITE BLOOD COUNT 8.2 10^3/uL (4.0-10.5)
[2019-05-07 16:25] LABS: APPEARANCE,URINE SLIGHTLY-CLOUDY; BILIRUBIN,URINE NEGATIVE (NEGATIVE); COLOR,URINE YELLOW; GLUCOSE, URINE NEGATIVE (NEGATIVE); KETONES,URINE NEGATIVE (NEGATIVE); LEUKOCYTE ESTERASE,URINE LARGE (NEGATIVE); NITRITE,URINE POSITIVE (NEGATIVE); PROTEIN,URINE NEGATIVE (NEGATIVE); URINE SPECIFIC GRAVITY 1.008; UROBILINOGEN,URINE NEGATIVE mg/dL (<2.0)
[2019-05-07 16:37] LABS: ALANINE AMINOTRANSFERASE 17 U/L (9-52); ALBUMIN 4.1 g/dL (3.5-5.0); ALKALINE PHOSPHATASE 115 U/L (38-126); ANION GAP 7 (5-19); ASPARTATE AMINO TRANSFERASE 20 U/L (14-36); BILIRUBIN,DIRECT 0.2 mg/dL (0.0-0.4); BILIRUBIN,TOTAL 1.2 mg/dL (0.2-1.3); BLOOD UREA NITROGEN 10 mg/dL (7-20); CALCIUM 9.6 mg/dL (8.4-10.2); CARBON DIOXIDE 31 mmol/L (22-30); CHLORIDE 100 mmol/L (98-107); GLUCOSE 94 mg/dL (75-110); LIPASE 25.1 U/L (23-300); POTASSIUM 4.4 mmol/L (3.6-5.0); SODIUM 138.2 mmol/L (137-145)
[2019-05-07] MEDS ORDERED: CEPHALEXIN 500 MG CAPSULE PO ONE (18:27)
[2019-05-07] MEDS ORDERED: METOCLOPRAMIDE HCL ORAL SOLN 10 MG/10 ML UDCUP PO ONE (18:27)
--- NOTE | 2019-05-07 18:58 | ER Document Report ---
Entered by FRANK SPENCE SCRIBE 05/07/19 1823 Acting as scribe for:VANESSA SPANN MD ED Cardiac - General Chief Complaint: Chest Pain Stated Complaint: CHEST PAIN Time Seen by Provider: 05/07/19 15:43 Primary Care Provider: MICHELLE BLANTON MD [Primary Care Provider] - Follow up as needed Mode of Arrival: Ambulatory Notes: Patient is a 59-year-old female presenting to the emergency department complaining of chest pain. Patient states that she has been having chest pain for quite some time now, she had a hiatal hernia repair a week ago by Dr. Garcia. Patient states that her pain has been worse since the surgery. Patient states that she is also been expensing nausea, and vomiting, she states her vomit is a clear, thick substance. Patient also states that she has been having "burnimg pee". Patient states that when she eats or drinks anything it makes her chest pain feels like a "crushing". Patient states that she also has pain upon swallowing, and it sometimes feels like something is caught in her throat. TRAVEL OUTSIDE OF THE [place] IN LAST 30 DAYS: No - Related Data Allergies/Adverse Reactions: hydromorphone [From Dilaudid] Allergy (Severe, Verified 05/07/19 15:13) SOB,HEAVY CHEST polyethylene glycol [From Golytely] Allergy (Severe, Verified 05/07/19 15:13) Anaphylaxis tramadol Allergy (Severe, Verified 05/07/19 15:13) CONFUSION FOR 2 DAYS codeine Allergy (Intermediate, Verified 05/07/19 15:13) ITCHING, HIVES diphenhydramine [From Benadryl] Allergy (Intermediate, Verified 05/07/19 15:13) Hives morphine Allergy (Verified 05/07/19 15:13) Past Medical History - General Information source: Patient - Social History Smoking Status: Current Every Day Smoker Cigarette use (# per day): Yes Chew tobacco use (# tins/day): No Frequency of alcohol use: Occasional Drug Abuse: None Family History: Reviewed & Not Pertinent, CAD, DM Patient has suicidal ideation: No Patient has homicidal ideation: No - Past Medical History Cardiac Medical History: Reports: Hx Heart Attack - 2012 CAUSED BY EPI (ANAPHYLAXIS FROM GOLYTELY) Pulmonary Medical History: Reports: Hx Pneumonia - HX SEP 2018, Hx Sleep Apnea GI Medical History: Reports: Hx Gastroesophageal Reflux Disease, Hx Hiatal Hernia Psychiatric Medical History: Reports: Hx Post Traumatic Stress Disorder Past Surgical History: Reports: Hx Abdominal Surgery, Hx Appendectomy, Hx Breast Surgery - reduction, Hx Cholecystectomy, Hx Genitourinary Surgery - bladder sling, Hx Gynecologic Surgery - D & C, Hx Orthopedic Surgery, Other - Panniculectomy, carpal tunnel 2, shoulder surgery 2, bladder sling, spine - Immunizations Hx Diphtheria, Pertussis, Tetanus Vaccination: Yes Review of Systems - Review of Systems Constitutional: No symptoms reported EENT: No symptoms reported Cardiovascular: See HPI, Chest pain Respiratory: No symptoms reported Gastrointestinal: See HPI, Nausea, Vomiting Genitourinary: See HPI, Burning Female Genitourinary: No symptoms reported Musculoskeletal: No symptoms reported Skin: No symptoms reported Hematologic/Lymphatic: No symptoms reported Neurological/Psychological: No symptoms reported -: Yes All other systems reviewed and negative Physical Exam - Vital signs Vitals: Temp Pulse Resp BP Pulse Ox 97.9 F 74 18 110/69 98 05/07/19 15:25 05/07/19 15:25 05/07/19 15:25 05/07/19 15:25 05/07/19 15:25 - Notes Notes: Physical Exam: General: Alert, appears well. HEENT: Normocephalic. Atraumatic. PERRL. Extraocular movements intact. Orophary nx clear. Neck: Supple. Non-tender. Respiratory: No respiratory distress. Clear and equal breath sounds bilaterally. Cardiovascular: Regular rate and rhythm. Abdominal: Laparoscopic ports feeling fine. Tenderness to palpation over healing sites, dominantly in the left upper quadrant. No distension. Normal Bowel Sounds. Back: Non-tender. No deformity or step off. Extremities: Moves all four extremities. Upper extremities: Normal inspection. Normal ROM. Lower extremities: Normal inspection. No edema. Normal ROM. Neurological: Normal cognition. AAOx4. Normal speech. Psychological: Normal affect. Normal Mood. Skin: Warm. Dry. Normal color. Course - Re-evaluation Re-evalutation: 05/07/19 18:52 I did discuss the patient's case with Dr. Garcia. He reports she had extensive herniation of gastric contents into the chest requiring a pull down under tension. He also tells me he instructed the patient that she would have the substernal discomfort on eating or swallowing similar to what she experienc ed before the surgery for at least 6 weeks after the procedure. He recommended she be put on Reglan 10 mg every 6-8 hours. - Vital Signs Vital signs: Temp Pulse Resp BP Pulse Ox 97.9 F 74 17 106/71 98 05/07/19 15:25 05/07/19 15:25 05/07/19 18:01 05/07/19 18:01 05/07/19 18:01 - Laboratory Result Diagrams: 05/07/19 16:03 05/07/19 16:03 Laboratory results interpreted by me: 05/07/19 05/07/19 15:55 16:03 Carbon Dioxide 31 H Urine Blood SMALL H Urine Nitrite POSITIVE H Ur Leukocyte Esterase LARGE H - EKG Interpretation by Me EKG shows normal: Sinus rhythm, [place], Intervals, QRS Complexes, ST-T Waves Rate: Normal - 77 Rhythm: NSR Discharge - Discharge Clinical Impression: Hiatal hernia Urinary tract infection Qualifiers: Urinary tract infection type: acute cystitis Hematuria presence: with hematuria Qualified Code(s): N30.01 - Acute cystitis with hematuria Condition: Stable Disposition: HOME, SELF-CARE Additional Instructions: Urinary Tract Infection Your evaluation indicates that you have a urinary tract infection. This is due to germs growing in the bladder. This is a common problem. This infection usually responds quickly to antibiotics. Your antibiotic should be taken exactly as prescribed. Drink plenty of fluids -- three to four quarts a day. Occasionally, a bladder anesthetic will be prescribed to help stop the feeling of urgency until the antibiotic has a chance to clear the infection. This may cause your urine to be dark orange. Certain urine infections require a culture. If the doctor obtained a culture, the results will be back in two days. You should call to see if a change in treatment is needed. A repeat urinalysis after you finish treatment is often recommended. The physician will let you know if further testing is required. Call the doctor if you develop fever, chills, flank pain, inability to urinate, or blood in the urine. The upper abdomen and substernal chest discomfort you experience when you are swallowing, is normal and expected for 6 to 8 weeks after the surgical procedure you just had done. We will add Reglan to your medications to see if it improves your symptoms. You should be sure to eat a soft or pured diet. You will need to drink plenty of fluids for the next few days to help clear up your urinary tract infection. Follow-up with your primary care provider if not improving. Follow-up with Dr. Garcia as scheduled. RETURN TO THE EMERGENCY ROOM IF ANY NEW OR WORSENING SYMPTOMS. Prescriptions: Cephalexin Monohydrate [Keflex 250 mg Capsule] 250 mg PO Q8 #15 capsule Metoclopramide HCl [Reglan 10 mg Tablet] 10 mg PO ASDIR #30 tablet Referrals: MICHELLE BLANTON MD [Primary Care Provider] - Follow up as needed Scribe Attestation: 05/07/19 18:57 I personally performed the services described in the documentation, reviewed and edited the documentation which was dictated to the scribe in my presence, and it accurately records my words and actions. I personally performed the services described in the documentation, reviewed and edited the documentation which was dictated to the scribe in my presence, and it accurately records my words and actions.
[2019-05-07 19:10] VITALS: BP 104/71
--- NOTE | 2019-05-08 00:01 | EKG REPORT ---
SEVERITY:- NORMAL ECG - SINUS RHYTHM : Confirmed by: Elida Asecnio MD 08-May-2019 00:00:15
== END 2019-05-07 19:10 | disposition home or self-care (01) ==
LOC: ER 15:10
DX: K44.9 Diaphragmatic hernia without obstruction or gangrene (principal); N30.01 Acute cystitis with hematuria; R07.9 Chest pain, unspecified; R11.2 Nausea with vomiting, unspecified; F17.210 Nicotine dependence, cigarettes, uncomplicated; Z88.6 Allergy status to analgesic agent; Z90.49 Acquired absence of other specified parts of digestive tract; I25.2 Old myocardial infarction
CPT/HCPCS: 93005; 99283; 36415; 87086; 83690; 85025; 87088; 80053; 81001; 87186; 93010; A9270 ×2

== ENCOUNTER 2019-06-25 23:34 | Emergency (ER) | payer MEDICARE, OTHER ==
[2019-06-26] MEDS ORDERED: ONDANSETRON HCL INJ/PF 4 MG/2 ML SDV IV ONE (01:12)
[2019-06-26] MEDS ORDERED: NORMAL SALINE 1000 ML 1,000 ML IV ONE (01:12)
--- NOTE | 2019-06-26 01:17 | ER Document Report ---
ED Medical Screen (RME) - General Chief Complaint: Nausea/Vomiting Stated Complaint: NAUSEA AND VOMITING Time Seen by Provider: 06/26/19 01:05 Primary Care Provider: MICHELLE BLANTON MD [Primary Care Provider] - Follow up as needed Mode of Arrival: Ambulatory Information source: Patient Notes: 59-year-old female presented to ED for complaint of nausea and vomiting. She states she vomited 5 times everything she ate today. She states she has a history of frequent vomiting. She states she needs to get IV fluids sometimes for this nausea and vomiting. She smokes a pack a day and drinks occasionally. Patient is alert oriented respirations regular and unlabored speaking in full sentences walks with even steady gait. I have greeted and performed a rapid initial assessment of this patient. A comprehensive ED assessment and evaluation of the patient, analysis of test results and completion of medical decision making process will be conducted by an additional ED providers. TRAVEL OUTSIDE OF THE [place] IN LAST 30 DAYS: No - Related Data Allergies/Adverse Reactions: hydromorphone [From Dilaudid] Allergy (Severe, Verified 05/07/19 15:13) SOB,HEAVY CHEST polyethylene glycol [From Golytely] Allergy (Severe, Verified 05/07/19 15:13) Anaphylaxis tramadol Allergy (Severe, Verified 05/07/19 15:13) CONFUSION FOR 2 DAYS codeine Allergy (Intermediate, Verified 05/07/19 15:13) ITCHING, HIVES diphenhydramine [From Benadryl] Allergy (Intermediate, Verified 05/07/19 15:13) Hives morphine Allergy (Verified 05/07/19 15:13) Past Medical History - General Information source: Patient - Social History Cigarette use (# per day): Yes - Pack per day Frequency of alcohol use: Occasional Drug Abuse: None Lives with: Family - Adult children Family history: Reviewed & Not Pertinent - Past Medical History Cardiac Medical History: Reports: Hx Heart Attack - 2012 CAUSED BY EPI (ANAPHYLAXIS FROM GOLYTELY) Pulmonary Medical History: Reports: Hx Pneumonia - HX SEP 2018, Hx Sleep Apnea EENT Medical History: Reports: None Neurological Medical History: Reports: None Endocrine Medical History: Reports: None Renal/ Medical History: Reports: None Malignancy Medical History: Reports: None GI Medical History: Reports: Hx Gastroesophageal Reflux Disease, Hx Hiatal Hernia, Hx Colonoscopy, Hx Endoscopy Musculoskeltal Medical History: Reports Hx Musculoskeletal Deformity, Reports Hx Musculoskeletal Trauma Skin Medical History: Reports None Psychiatric Medical History: Reports: Hx Anxiety, Hx Depression, Hx Post Traumatic Stress Disorder Traumatic Medical History: Reports: None Infectious Medical History: Reports: None Past Surgical History: Reports: Hx Abdominal Surgery - Hiatal hernia repair x2 5 inches of colon removed due to colonoscopy, Hx Appendectomy, Hx Breast Surgery - reduction, Hx Cholecystectomy, Hx Genitourinary Surgery - bladder sling, Hx Gynecologic Surgery - D & C, uterine suspension, Hx Orthopedic Surgery, Other - Panniculectomy, carpal tunnel 2, shoulder surgery 2, bladder sling, spine. Denies: Hx Hysterectomy - Immunizations Hx Diphtheria, Pertussis, Tetanus Vaccination: Yes History of Influenza Vaccine for 07/2017 - 12/2017 Season: No Influenza Administration Date for 07/2017 - 12/2017 Season: 07/29/18 Physical Exam - Vital signs Vitals: Temp Pulse Resp BP Pulse Ox 97.8 F 67 15 115/68 98 06/25/19 23:41 06/25/19 23:41 06/25/19 23:41 06/25/19 23:41 06/25/19 23:41 Course - Vital Signs Vital signs: Temp Pulse Resp BP Pulse Ox 97.8 F 67 15 115/68 98 06/25/19 23:41 06/25/19 23:41 06/25/19 23:41 06/25/19 23:41 06/25/19 23:41 Doctor's Discharge - Discharge Referrals: MICHELLE BLANTON MD [Primary Care Provider] - Follow up as needed
[2019-06-26 03:09] LABS: ABSOLUTE BASOPHILS # (AUTO) 0.1 10^3/uL (0.0-0.2); ABSOLUTE EOSINOPHILS # (AUTO) 0.1 10^3/uL (0.0-0.6); ABSOLUTE MONOCYTES (AUTO) 0.8 10^3/uL (0.1-1.4); ABSOLUTE NEUT (AUTO) 6.6 10^3/uL (1.7-8.2); BASOPHILS % (AUTO) 0.8 % (0-2); EOSINOPHILS % (AUTO) 0.5 % (0-6); HEMATOCRIT 38.1 % (36.0-47.0); HEMOGLOBIN 13.1 g/dL (12.0-15.5); LYMPHOCYTES % (AUTO) 28.4 % (13-45); MEAN CORPUSCULAR HEMOGLOBIN 32.5 pg (27.0-33.4); MEAN CORPUSCULAR HGB CONC 34.5 g/dL (32.0-36.0); MEAN CORPUSCULAR VOLUME 94 fl (80-97); MONOCYTES % (AUTO) 7.2 % (3-13); PLATELET COUNT 320 10^3/uL (150-450); RED BLOOD COUNT 4.04 10^6/uL (3.72-5.28); RED CELL DISTRIBUTION WIDTH 12.6 % (11.5-14.0); SEGMENTED NEUTROPHILS % (AUTO) 63.1 % (42-78); TOTAL CELLS COUNTED % (AUTO) 100 %; WHITE BLOOD COUNT 10.5 10^3/uL (4.0-10.5)
[2019-06-26 03:23] LABS: APPEARANCE,URINE SLIGHTLY-CLOUDY; BILIRUBIN,URINE NEGATIVE (NEGATIVE); GLUCOSE, URINE NEGATIVE (NEGATIVE); KETONES,URINE NEGATIVE (NEGATIVE); LEUKOCYTE ESTERASE,URINE TRACE (NEGATIVE); NITRITE,URINE POSITIVE (NEGATIVE); PROTEIN,URINE NEGATIVE (NEGATIVE); URINE SPECIFIC GRAVITY 1.017; UROBILINOGEN,URINE NEGATIVE mg/dL (<2.0)
[2019-06-26 03:24] LABS: COLOR,URINE YELLOW
[2019-06-26 03:27] LABS: ALBUMIN 4.1 g/dL (3.5-5.0); ALKALINE PHOSPHATASE 97 U/L (38-126); ANION GAP 5 (5-19); ASPARTATE AMINO TRANSFERASE 21 U/L (14-36); BILIRUBIN,DIRECT 0.2 mg/dL (0.0-0.4); BILIRUBIN,TOTAL 0.9 mg/dL (0.2-1.3); BLOOD UREA NITROGEN 16 mg/dL (7-20); CALCIUM 9.5 mg/dL (8.4-10.2); CARBON DIOXIDE 30 mmol/L (22-30); CHLORIDE 104 mmol/L (98-107); GLUCOSE 87 mg/dL (75-110); POTASSIUM 3.7 mmol/L (3.6-5.0); TOTAL PROTEIN 6.9 g/dL (6.3-8.2)
[2019-06-26] MEDS ORDERED: CEFTRIAXONE 1 GM/D5W RTU 1 GM/50 ML RTUPB IV ONE (03:42)
--- NOTE | 2019-06-26 04:44 | ER Document Report ---
ED General - General Chief Complaint: Nausea/Vomiting Stated Complaint: NAUSEA AND VOMITING Time Seen by Provider: 06/26/19 01:05 Primary Care Provider: MICHELLE BLANTON MD [Primary Care Provider] - Follow up as needed Mode of Arrival: Ambulatory Notes: RME NOTE: 59-year-old female presented to ED for complaint of nausea and vomiting. She states she vomited 5 times everything she ate today. She states she has a history of frequent vomiting. She states she needs to get IV fluids sometimes for this nausea and vomiting. She smokes a pack a day and drinks occasionally. Patient is alert oriented respirations regular and unlabored speaking in full sentences walks with even steady gait. MY HPI: Patient complains of slight left upper abdominal pain and also urinary frequency. Denies dysuria or vaginal discharge. Patient's denying any blood in her emesis, denies any diarrhea. History of cholecystectomy and appendectomy. TRAVEL OUTSIDE OF THE [place] IN LAST 30 DAYS: No - Related Data Allergies/Adverse Reactions: hydromorphone [From Dilaudid] Allergy (Severe, Verified 05/07/19 15:13) SOB,HEAVY CHEST polyethylene glycol [From Golytely] Allergy (Severe, Verified 05/07/19 15:13) Anaphylaxis tramadol Allergy (Severe, Verified 05/07/19 15:13) CONFUSION FOR 2 DAYS codeine Allergy (Intermediate, Verified 05/07/19 15:13) ITCHING, HIVES diphenhydramine [From Benadryl] Allergy (Intermediate, Verified 05/07/19 15:13) Hives morphine Allergy (Verified 05/07/19 15:13) Past Medical History - General Information source: Patient - Social History Smoking Status: Unknown if Ever Smoked Cigarette use (# per day): Yes - Pack per day Frequency of alcohol use: Occasional Drug Abuse: None Lives with: Family - Adult children Family History: Reviewed & Not Pertinent, CAD, DM Patient has suicidal ideation: No Patient has homicidal ideation: No - Past Medical History Cardiac Medical History: Reports: Hx Heart Attack - 2012 CAUSED BY EPI (ANAPHYLAXIS FROM GOLYTELY) Pulmonary Medical History: Reports: Hx Pneumonia - HX SEP 2018, Hx Sleep Apnea EENT Medical History: Reports: None Neurological Medical History: Reports: None Endocrine Medical History: Reports: None Renal/ Medical History: Reports: None Malignancy Medical History: Reports: None GI Medical History: Reports: Hx Gastroesophageal Reflux Disease, Hx Hiatal Hernia, Hx Colonoscopy, Hx Endoscopy Musculoskeletal Medical History: Reports Hx Musculoskeletal Deformity, Reports Hx Musculoskeletal Trauma Skin Medical History: Reports None Psychiatric Medical History: Reports: Hx Anxiety, Hx Depression, Hx Post Traumatic Stress Disorder Traumatic Medical History: Reports: None Infectious Medical History: Reports: None Past Surgical History: Reports: Hx Abdominal Surgery - Hiatal hernia repair x2 5 inches of colon removed due to colonoscopy, Hx Appendectomy, Hx Breast Surgery - reduction, Hx Cholecystectomy, Hx Genitourinary Surgery - bladder sling, Hx Gynecologic Surgery - D & C, uterine suspension, Hx Orthopedic Surgery, Other - Panniculectomy, carpal tunnel 2, shoulder surgery 2, bladder sling, spine. Denies: Hx Hysterectomy - Immunizations Hx Diphtheria, Pertussis, Tetanus Vaccination: Yes Review of Systems - Review of Systems Constitutional: denies: Fever EENT: No symptoms reported Cardiovascular: No symptoms reported Respiratory: No symptoms reported Gastrointestinal: See HPI Genitourinary: See HPI Female Genitourinary: No symptoms reported Musculoskeletal: No symptoms reported Skin: No symptoms reported Hematologic/Lymphatic: No symptoms reported Neurological/Psychological: No symptoms reported Physical Exam - Vital signs Vitals: Temp Pulse Resp BP Pulse Ox 97.8 F 67 15 115/68 98 06/25/19 23:41 06/25/19 23:41 06/25/19 23:41 06/25/19 23:41 06/25/19 23:41 - Notes Notes: GENERAL: Alert, interacts well. No acute distress. HEAD: Normocephalic, atraumatic. EYES: Pupils equal, round, and reactive to light. Extraocular movements intact. ENT: Oral mucosa moist, tongue midline. NECK: Full range of motion. Supple. Trachea midline. LUNGS: Clear to auscultation bilaterally, no wheezes, rales, or rhonchi. No respiratory distress. HEART: Regular rate and rhythm. No murmur ABDOMEN: Soft, slight left upper quadrant abdominal pain noted. Non-distended. Bowel sounds present in all 4 quadrants. No McBurney's point tenderness, no Lowery sign noted. EXTREMITIES: Moves all 4 extremities spontaneously. No edema, normal radial and dorsalis pedis pulses bilaterally. No cyanosis. BACK: no cervical, thoracic, lumbar midline tenderness. No saddle anesthesia, normal distal neurovascular exam. No CVA tenderness noted bilaterally. NEUROLOGICAL: Alert and oriented x3. Normal speech. cranial nerves II through XII grossly intact PSYCH: Normal affect, normal mood. SKIN: Warm, dry, normal turgor. No rashes or lesions noted. Course - Re-evaluation Re-evalutation: 06/26/19 04:41 Laboratory 06/26/19 06/26/19 06/26/19 02:56 02:56 03:04 WBC 10.5 RBC 4.04 Hgb 13.1 Hct 38.1 MCV 94 MCH 32.5 MCHC 34.5 RDW 12.6 Plt Count 320 Lymph % (Auto) 28.4 [place] % (Auto) 7.2 Eos % (Auto) 0.5 Baso % (Auto) 0.8 Absolute Neuts (auto) 6.6 Absolute Lymphs (auto) 3.0 Absolute Monos (auto) 0.8 Absolute Eos (auto) 0.1 Absolute Basos (auto) 0.1 Seg Neutrophils % 63.1 Sodium 139.0 Potassium 3.7 Chloride 104 Carbon Dioxide 30 Anion Gap 5 BUN 16 Creatinine 0.51 L Est GFR ( Amer) > 60 Est GFR (MDRD) Non-Af > 60 Glucose 87 Calcium 9.5 Total Bilirubin 0.9 Direct Bilirubin 0.2 Neonat Total Bilirubin Not Reportable Neonat Direct Bilirubin Not Reportable Neonat Indirect Bili Not Reportable AST 21 ALT 13 Alkaline Phosphatase 97 Total Protein 6.9 Albumin 4.1 Lipase 80.1 Urine Color YELLOW Urine Appearance SLIGHTLY-CLOUDY Urine pH 6.0 Ur Specific [place] 1.017 Urine Protein NEGATIVE Urine Glucose (UA) NEGATIVE Urine Ketones NEGATIVE Urine Blood NEGATIVE Urine Nitrite POSITIVE H Urine Bilirubin NEGATIVE Urine Urobilinogen NEGATIVE Ur Leukocyte Esterase TRACE H Urine WBC (Auto) 4 Urine RBC (Auto) 0 U Hyaline Cast (Auto) 1 Urine Bacteria (Auto) 2+ Squamous Epi Cells Auto 1 Urine Mucus (Auto) MANY Urine Ascorbic Acid NEGATIVE Patient's urine does show signs of infection, will treat for urinary tract infection, sent for culture. Patient has had no further episodes of vomiting while in the emergency department. At this time will discharge with return precautions and follow-up recommendations. Verbal discharge instructions given a the bedside and opportunity for questions given. Medication warnings reviewed. Patient is in agreement with this plan and has verbalized understanding of return precautions and the need for primary care follow-up in the next 24-72 hours. This medical record was dictated with voice recognizing software. There may be grammatical, syntax errors that are unintended. 06/26/19 04:43 Patient states she does have Zofran at home for use is not to need another prescription. - Vital Signs Vital signs: Temp Pulse Resp BP Pulse Ox 97.8 F 67 15 115/68 98 06/25/19 23:41 06/25/19 23:41 06/25/19 23:41 06/25/19 23:41 06/25/19 23:41 - Laboratory Result Diagrams: 06/26/19 02:56 06/26/19 02:56 Laboratory results interpreted by me: 06/26/19 06/26/19 02:56 03:04 Creatinine 0.51 L Urine Nitrite POSITIVE H Ur Leukocyte Esterase TRACE H Discharge - Discharge Clinical Impression: Vomiting Qualifiers: Vomiting type: unspecified Vomiting Intractability: non-intractable Nausea presence: with nausea Qualified Code(s): R11.2 - Nausea with vomiting, unsp ecified Urinary tract infection Qualifiers: Urinary tract infection type: acute cystitis Hematuria presence: without hematu kunal Qualified Code(s): N30.00 - Acute cystitis without hematuria Condition: Stable Disposition: HOME, SELF-CARE Instructions: Antinausea Medication ([facility]), Cephalexin ([facility]), Urinary Tract Infection ([facility]), Vomiting ([facility]) Additional Instructions: As we discussed you have been seen and treated in the emergency department for vomiting and a urinary tract infection. Please make sure you are taking your prescribed Zofran as well as your prescribed antibiotics. Please follow-up with your primary care provider in the next 24 to 48 hours. Please return to the emergency room for any further concerns. Prescriptions: Cephalexin Monohydrate [Keflex 500 mg Capsule] 500 mg PO BID 7 Days #14 capsule Referrals: MICHELLE BLANTON MD [Primary Care Provider] - Follow up as needed
[2019-06-26 05:58] VITALS: BP 115/72
== END 2019-06-26 05:57 | disposition home or self-care (01) ==
LOC: ER 23:34
DX: N30.00 Acute cystitis without hematuria (principal); R11.2 Nausea with vomiting, unspecified; R35.0 Frequency of micturition; R10.12 Left upper quadrant pain; F17.210 Nicotine dependence, cigarettes, uncomplicated; I25.2 Old myocardial infarction
CPT/HCPCS: 99284; 96361; 96375; 96365; 36415; 83690; 85025; 80053; 81001; J2405; J7030; J0696

== ENCOUNTER 2019-09-08 09:30 | Day surgery (SDC) | payer MEDICARE, OTHER ==
[~2019-09-08 09:30] MED LIST changes: -CEFAZOLIN 2 GM/D5W RTU 2 GM/50 ML RTUPB IV ONE; -CEFAZOLIN 2 GM/D5W RTU 2 GM/50 ML RTUPB IV PRN; +PROPOFOL INJ 200 MG/20 ML VIAL IV ONE
--- NOTE | 2019-09-08 12:07 | Operative Report ---
Operative Report DATE OF SURGERY: 09/08/19 Operative Report: The risks, benefits and alternatives of the procedure including the risk of bleeding, perforation requiring surgery have been explained to the patient in detail and informed consent has been obtained. The patient is taken back to the endoscopy suite and placed in the left, lateral decubital position. Timeout was called. Propofol medication is administered. Rectal examination is done which did not reveal any masses, tears or fissures. An Olympus videoscope was introduced into the patient's rectum. Scope was then carefully advanced all the way to the cecum. The prep was not adequate. However I was able to advance the scope to the appendiceal office. Scope was then sequentially pulled back via the various segments of the colon including the ascending colon, hepatic flexure, transverse colon, splenic flexure, descending colon and finally into the rectosigmoid portions of the colon. Retroflexion maneuver is performed. The risks benefits and alternatives of the procedure explained to the patient in detail and informed consent is obtained.A GIF Olympus video scope was inserted into the patient's mouth and hypopharynx, the esophagus is identified intubated and insufflated ,the scope was then advanced through the esophagus stomach and duodenum ,retroflexion maneuver is done, the esophagus stomach and first and second portions of the duodenum examined. PREOPERATIVE DIAGNOSIS: Epigastric pain. Change of bowel habits with previous incomplete colonoscopy attempted elsewhere POSTOPERATIVE DIAGNOSIS: Bed prep but scope was able to be advanced to the cecum without any difficulty. Random biopsies taken on the right side of the colon. No obstructive lesion is noted. Gastritis status post biopsy without Helicobacter pylori. Chayo fundoplication appears to be intact. OPERATION: Colonoscopy with biopsy. EGD with biopsy SURGEON: TAVO DOUGLAS ANESTHESIA: LMAC TISSUE REMOVED OR ALTERED: As noted above. COMPLICATIONS: None. ESTIMATED BLOOD LOSS: None. INTRAOPERATIVE FINDINGS: As noted above. PROCEDURE: Patient tolerated the procedure well. No immediate postprocedure complications are noted. Patient is discharged in good condition. Discharge date 09/08/2019. Discharge diet: Regular. Discharge activity: Regular. 2 to 3-week follow-up to discuss findings. Patient is instructed to call the office or proceed to the emergency room should there be any further questions. 1 year surveillance colonoscopy.
[2019-09-08 12:26] VITALS: BP 100/66
== END 2019-09-08 12:05 | disposition home or self-care (01) ==
LOC: END 09:30
PROVIDERS: ATTEND Internal Medicine Gastroenterology
DX: R63.4 Abnormal weight loss (principal); Z68.21 Body mass index [BMI] 21.0-21.9, adult; K29.50 Unspecified chronic gastritis without bleeding; R19.4 Change in bowel habit; I25.2 Old myocardial infarction; F17.210 Nicotine dependence, cigarettes, uncomplicated
CPT/HCPCS: 43239; 45380; 88342 ×2; 88305 ×2; 00813; J2704; 813

== ENCOUNTER 2019-09-16 07:03 | Emergency (ER) | payer MEDICARE, OTHER ==
[2019-09-16] MEDS ORDERED: ONDANSETRON HCL INJ/PF 4 MG/2 ML SDV IV ONE (07:50)
[2019-09-16] MEDS ORDERED: MAG HYDROX/AL HYDROX/SIMETH SUSP 30 ML UDCUP PO ONE (07:51)
[2019-09-16] MEDS ORDERED: HYOSCYAMINE SULFATE 0.125 MG TABLET PO ONE (07:51)
--- NOTE | 2019-09-16 07:57 | ER Document Report ---
ED Cardiac - General Chief Complaint: Chest Tightness Stated Complaint: SHORTNESS OF BREATH Primary Care Provider: MICHELLE BLANTON MD [COMMUNITY BASED STAFF] - Follow up as needed Information source: Patient TRAVEL OUTSIDE OF THE [place] IN LAST 30 DAYS: No - HPI Patient complains to provider of: Chest tightness. denies: Chest pain, Palpitations, Shortness of breath, Other Use of: denies: Alcohol, Amphetamines, Bath salts, Caffeine, Cocaine, Decongesta nts, Other Was the onset of pain: Gradual When did pain begin: yesterday Chest pain location: Under breast Quality of pain: Cramping, Tightness. denies: None, Constant, Intermittent, Mild, Moderate, Severe, Achy, Burning, Constriction, Crushing, Dull, Heaviness, Incisional, Indigestion, Numbness, Pressure, Radiating, Sharp, Stabbing, Tearing, Throbbing, Tingling, Other Chest pain radiation location: denies: Left jaw, Left arm, Left shoulder, Right jaw, Right arm, Right shoulder, Back, Neck, None Severity now: Mild Severity at worst: Moderate Pain level currently: 1 Chest pain precipitating factors: Eating Cardiac risk factors: Hx DC - secondary to iv epinepherine given at higher dose due to anaphylaxis.. denies: None, Diabetes, Hypertension, Smoker, + Family history, Dyslipidemia, Hx CHF Positive cardiac history: Yes Associated symptoms: Abdominal pain, Nausea/vomiting, Other - diarrhea Exacerbated by: denies: Denies, Sitting, Standing, Activity, Emotional stress, Coughing, Deep breaths, Torso movement, Lying flat, Other Relieved by: denies: Nothing, Rest, Oxygen, NTG, NSAIDs, Leaning forward, Antacids, Other - Related Data Allergies/Adverse Reactions: hydromorphone [From Dilaudid] Allergy (Severe, Verified 05/07/19 15:13) SOB,HEAVY CHEST polyethylene glycol [From Golytely] Allergy (Severe, Verified 05/07/19 15:13) Anaphylaxis tramadol Allergy (Severe, Verified 05/07/19 15:13) CONFUSION FOR 2 DAYS codeine Allergy (Intermediate, Verified 05/07/19 15:13) ITCHING, HIVES diphenhydramine [From Benadryl] Allergy (Intermediate, Verified 05/07/19 15:13) Hives morphine Allergy (Verified 05/07/19 15:13) Past Medical History - Social History Smoking Status: Unknown if Ever Smoked Frequency of alcohol use: None Drug Abuse: None Family History: Reviewed & Not Pertinent, CAD, DM Patient has suicidal ideation: No Patient has homicidal ideation: No - Past Medical History Cardiac Medical History: Reports: Hx Heart Attack - 2013 FROM EPINEPHRINE SHOT Denies: Hx Coronary Artery Disease, Hx Hypertension Pulmonary Medical History: Reports: Hx Sleep Apnea Denies: Hx Asthma, Hx Bronchitis, Hx COPD, Hx Pneumonia Neurological Medical History: Denies: Hx Cerebrovascular Accident, Hx Seizures GI Medical History: Reports: Hx Gastroesophageal Reflux Disease, Hx Hiatal Hernia, Hx Colonoscopy, Hx Endoscopy Musculoskeletal Medical History: Denies Hx Arthritis, Reports Hx Musculoskeletal Deformity, Reports Hx Musculoskeletal Trauma Psychiatric Medical History: Reports: Hx Anxiety, Hx Depression, Hx Post Traumatic Stress Disorder Past Surgical History: Reports: Hx Abdominal Surgery - Hiatal hernia repair x2 5 inches of colon removed due to colonoscopy, Hx Appendectomy, Hx Breast Surgery - reduction, Hx Cholecystectomy, Hx Genitourinary Surgery - bladder sling, Hx Gynecologic Surgery - D & C, uterine suspension, Hx Orthopedic Surgery, Other - Panniculectomy, carpal tunnel 2, shoulder surgery 2, bladder sling, spine. Denies: Hx Hysterectomy - Immunizations Hx Diphtheria, Pertussis, Tetanus Vaccination: Yes Review of Systems - Review of Systems Constitutional: denies: No symptoms reported, See HPI, Chills, Diaphoresis, Fever, Malaise, Weakness, Other, Weight gain, Weight loss, Recent illness EENT: denies: No symptoms reported, See HPI, Eye pain, Eye discharge, Blurred vision, Tearing, Double vision, Ear pain, Ear discharge, Nose pain, Nose congestion, Nose discharge, Sinus pressure, Sinus discharge, Throat pain, Difficulty swallowing, Throat swelling, Mouth pain, Mouth swelling, Dental problem, Vertigo, Other Cardiovascular: Chest pain. denies: No symptoms reported, See HPI, Palpitations, Heart racing, Orthopnea, Dyspnea, Syncope, Dizziness, Lightheaded, Edema, Other, Paroxysmal Nocturnal Dysp Respiratory: Short of breath. denies: No symptoms reported, See HPI, Cough, Hurts to breathe, Hemoptysis, Sputum, Stridor, Wheezing, Other Gastrointestinal: Diarrhea, Nausea, Vomiting. denies: No symptoms reported, See HPI, Abdomen distended, Abdominal pain, Constipation, Blood streaked bowels, Poor appetite, Poor fluid intake, Blood in vomit, Black stools, Rectal bleeding, Last bowel movement, Fecal incontinence, Other Genitourinary: denies: No symptoms reported, See HPI, Burning, Dysuria, Discharge, Frequency, Flank pain, Hematuria, Incontinence, Pain, Urgency, Retention, Other -: Yes All other systems reviewed and negative Physical Exam - Vital signs Vitals: Temp 98.1 F 09/16/19 07:23 Notes: PHYSICAL EXAMINATION: GENERAL: Well-appearing, well-nourished and in no acute distress. HEAD: Atraumatic, normocephalic. EYES: Pupils equal round and reactive to light, extraocular movements intact, sclera anicteric, conjunctiva are normal. ENT: nares patent, oropharynx clear without exudates. Moist mucous membranes. NECK: Normal range of motion, supple without lymphadenopathy LUNGS: Breath sounds clear to auscultation bilaterally and equal. No wheezes rales or rhonchi. HEART: Regular rate and rhythm without murmurs ABDOMEN: Soft, mild tenderness in the midepigastric area which reproduces the pain into the chest., normoactive bowel sounds. No guarding, no rebound. No masses appreciated. EXTREMITIES: Normal range of motion, no pitting or edema. No cyanosis. NEUROLOGICAL: No focal neurological deficits. Moves all extremities spontaneously and on command. PSYCH: Normal mood, normal affect. SKIN: Warm, Dry, normal turgor, no rashes or lesions noted. Course - Vital Signs Vital signs: Temp Pulse Resp BP Pulse Ox 98.1 F 09/16/19 07:23 - Laboratory Result Diagrams: 09/16/19 07:53 09/16/19 07:53 Laboratory results interpreted by me: 09/16/19 07:53 WBC 11.4 H Lymph % (Auto) 9.3 L Absolute Neuts (auto) 9.7 H Seg Neutrophils % 85.2 H - Diagnostic Test Radiology reviewed: Image reviewed, Reports reviewed - EKG Interpretation by Me EKG shows normal: Sinus rhythm Rate: Normal Rhythm: NSR [place]/QRS: No: Right axis deviation, Left axis deviation, RBBB, LBBB, IVCD, LAHB/LAFB, LPHB/LPFB, Bifasicular block Voltage: No: Increased voltage, Consistant with LVH, Decreased voltage, Throughout, Limb leads P Waves: No: PRISCILLA, LAE, Absent, AV Dissociation, Other When compared to previous EKG there are: Previous EKG unavailable - Transfer of Care Notes: 09/16/19 10:00 Patient feels much better after GI cocktail I believe this is probably reflux we will start her on Zantac Discharge - Discharge Clinical Impression: Gastritis Qualifiers: Gastritis type: other gastritis Chronicity: acute Gastritis bleeding: presence of bleeding unspecified Qualified Code(s): K29.00 - Acute gastritis without bleeding GERD (gastroesophageal reflux disease) Qualifiers: Esophagitis presence: esophagitis presence not specified Qualified Code(s): K21.9 - Gastro-esophageal reflux disease without esophagitis Condition: Stable Disposition: HOME, SELF-CARE Instructions: Gastritis ([facility]) Additional Instructions: Return if he started getting chest pain which is worse with exertion better with rest shortness of breath or condition worsens follow-up with your regular doctor for possible referral to a GI doctor Prescriptions: Ranitidine HCl [Zantac] 150 mg PO Q12 #30 tablet Referrals: MICHELLE BLANTON MD [COMMUNITY BASED STAFF] - Follow up as needed
[2019-09-16 08:15] LABS: ABSOLUTE LYMPHOCYTES (AUTO) 1.1 10^3/uL (0.5-4.7); ABSOLUTE MONOCYTES (AUTO) 0.6 10^3/uL (0.1-1.4); ABSOLUTE NEUT (AUTO) 9.7 10^3/uL (1.7-8.2); BASOPHILS % (AUTO) 0.4 % (0-2); HEMATOCRIT 39.4 % (36.0-47.0); HEMOGLOBIN 13.6 g/dL (12.0-15.5); LYMPHOCYTES % (AUTO) 9.3 % (13-45); MEAN CORPUSCULAR HEMOGLOBIN 32.6 pg (27.0-33.4); MEAN CORPUSCULAR HGB CONC 34.5 g/dL (32.0-36.0); MEAN CORPUSCULAR VOLUME 95 fl (80-97); MONOCYTES % (AUTO) 5.1 % (3-13); PLATELET COUNT 289 10^3/uL (150-450); RED BLOOD COUNT 4.17 10^6/uL (3.72-5.28); RED CELL DISTRIBUTION WIDTH 13.1 % (11.5-14.0); SEGMENTED NEUTROPHILS % (AUTO) 85.2 % (42-78); TOTAL CELLS COUNTED % (AUTO) 100 %; WHITE BLOOD COUNT 11.4 10^3/uL (4.0-10.5)
[2019-09-16 08:31] LABS: INTERNATIONAL RATION (INR) 0.91; PROTHROMBIN TIME 12.2 SEC (11.4-15.4)
[2019-09-16 08:42] LABS: ALKALINE PHOSPHATASE 96 U/L (38-126); ANION GAP 5 (5-19); ASPARTATE AMINO TRANSFERASE 25 U/L (14-36); BILIRUBIN,DIRECT 0.1 mg/dL (0.0-0.4); BILIRUBIN,TOTAL 0.6 mg/dL (0.2-1.3); BLOOD UREA NITROGEN 15 mg/dL (7-20); CALCIUM 9.3 mg/dL (8.4-10.2); CARBON DIOXIDE 28 mmol/L (22-30); CHLORIDE 104 mmol/L (98-107); CREATINE KINASE 108 U/L (30-135); GLUCOSE 109 mg/dL (75-110); POTASSIUM 3.9 mmol/L (3.6-5.0)
--- NOTE | 2019-09-16 08:43 | RADIOLOGY REPORT (SQ) ---
EXAM DESCRIPTION: CHEST SINGLE VIEW COMPLETED DATE/TIME: 09/16/2019 8:30 am REASON FOR STUDY: chest pain COMPARISON: None. EXAM PARAMETERS: NUMBER OF VIEWS: One view. TECHNIQUE: Single frontal radiographic view of the chest acquired. RADIATION DOSE: NA LIMITATIONS: None. FINDINGS: LUNGS AND PLEURA: No opacities, masses or pneumothorax. No pleural effusion. Mild hyperin flation. MEDIASTINUM AND HILAR STRUCTURES: No masses. Contour normal. HEART AND VASCULAR STRUCTURES: Heart normal in size. Normal vasculature. BONES: No acute findings. HARDWARE: None in the chest. OTHER: No other significant finding. IMPRESSION: No evidence of acute cardiopulmonary process. TECHNICAL DOCUMENTATION: JOB ID: [id number] [employer]- All Rights Reserved Reading location - IP/workstation name: [email or web address]
[2019-09-16 08:59] LABS: CREATINE KINASE MB 0.73 ng/mL (<4.55)
[2019-09-16 09:05] LABS: TROPONIN I < 0.012 ng/mL
[2019-09-16 10:27] VITALS: BP 105/65
--- NOTE | 2019-09-16 22:46 | EKG REPORT ---
SEVERITY:- NORMAL ECG - SINUS RHYTHM : Confirmed by: Adolfo Salinas MD 16-Sep-2019 22:45:47
== END 2019-09-16 10:15 | disposition home or self-care (01) ==
LOC: ER 07:03
DX: K21.9 Gastro-esophageal reflux disease without esophagitis (principal); K29.00 Acute gastritis without bleeding; R07.89 Other chest pain; R11.2 Nausea with vomiting, unspecified; R19.7 Diarrhea, unspecified; R10.9 Unspecified abdominal pain; R10.816 Epigastric abdominal tenderness; I25.2 Old myocardial infarction; Z87.892 Personal history of anaphylaxis; Z88.8 Allergy status to other drugs, medicaments and biological substances; Z88.5 Allergy status to narcotic agent; Z82.49 Family history of ischemic heart disease and other diseases of the circulatory system
CPT/HCPCS: 93005; 36415; 82553; 82550; 83690; 85025; 85610; 80053; 84484; 71045; 93010; A9270 ×2; J2405; 96374; 99285; J3490

== ENCOUNTER 2020-02-16 22:40 | Emergency (ER) | payer MEDICARE, OTHER ==
--- NOTE | 2020-02-17 00:31 | ER Document Report ---
HPI - HPI Time Seen by Provider: 02/17/20 00:17 Pain Level: 4 Context: Patient is a 59-year-old female that comes emergency department for chief complaint of pain to her left hand. She states this morning she had an orthopedic procedure, she had release of trigger fingers in the third and fourth digits of the left hand. She states she was doing fine at home until the numbness wore off and now the pain is throbbing and she cannot sleep. She states that she was prescribed tramadol for pain, however she states she has taken this in the past and has had very negative side effects therefore she did not fill this, she states she called her orthopedics who called her in a prescription of "Demerol", she states that she is allergic to hydromorphone, morphine, codeine, and she also when asked states that she is unable to take oxycodone and hydrocodone. She is not on a blood thinner. She denies any abnormal swelling, change in appearance of the fingers, or swelling of the forearm. She denies any other complaints. - REPRODUCTIVE Reproductive: DENIES: : Past Medical History - General Information source: Patient - Social History Smoking Status: Current Every Day Smoker Frequency of alcohol use: Rare Drug Abuse: None Lives with: Family Family History: Reviewed & Not Pertinent, CAD, DM Patient has suicidal ideation: No Patient has homicidal ideation: No - Past Medical History Cardiac Medical History: Reports: Hx Heart Attack - 2013 FROM EPINEPHRINE SHOT Denies: Hx Coronary Artery Disease, Hx Hypertension Pulmonary Medical History: Reports: Hx Sleep Apnea Denies: Hx Asthma, Hx Bronchitis, Hx COPD, Hx Pneumonia Neurological Medical History: Denies: Hx Cerebrovascular Accident, Hx Seizures GI Medical History: Reports: Hx Gastroesophageal Reflux Disease, Hx Hiatal Hernia, Hx Colonoscopy, Hx Endoscopy Musculoskeletal Medical History: Denies Hx Arthritis, Reports Hx Musculoskeletal Deformity, Reports Hx Musculoskeletal Trauma Psychiatric Medical History: Reports: Hx Anxiety, Hx Depression, Hx Post Traumatic Stress Disorder Past Surgical History: Reports: Hx Abdominal Surgery - Hiatal hernia repair x2 5 inches of colon removed due to colonoscopy, Hx Appendectomy, Hx Breast Surgery - reduction, Hx Cholecystectomy, Hx Genitourinary Surgery - bladder sling, Hx Gynecologic Surgery - D & C, uterine suspension, Hx Orthopedic Surgery, Other - Panniculectomy, carpal tunnel 2, shoulder surgery 2, bladder sling, spine. Denies: Hx Hysterectomy - Immunizations Hx Diphtheria, Pertussis, Tetanus Vaccination: Yes Vertical Provider Document - CONSTITUTIONAL General Appearance: WD/WN, No Apparent Distress - INFECTION CONTROL TRAVEL OUTSIDE OF THE [place] IN LAST 30 DAYS: No - HEENT HEENT: Atraumatic, Normocephalic - NECK Neck: Normal Inspection - RESPIRATORY Respiratory: Breath Sounds Normal, No Respiratory Distress - CARDIOVASCULAR Cardiovascular: Regular Rate, Regular Rhythm - GI/ABDOMEN Gastrointestinal: Abdomen Soft, Abdomen Non-Tender - BACK Back: Normal Inspection - MUSCULOSKELETAL/EXTREMETIES Musculoskeletal/Extremeties: MAEW, FROM, Tender - Patient with postoperative splint over the left wrist and hand with the fingers exposed including the DIP joints. There are X dow on the tips of the fingers on the third and fourth digits. Normal capillary refill and sensation, no noted swelling or tenderness to the areas over the fingers, normal forearm otherwise, elbow, shoulder exams. Course - Re-evaluation Re-evalutation: Patient is simply here for pain management postoperatively. She has a long list of allergies, however she has not actually tried oxycodone or hydrocodone, she is requesting Demerol but we do not have this. Patient was given oxycodone and Zofran here, she was reevaluated and states she is significantly improved, patient has not had any side effects and she took the medication over an hour ago. Patient will be provided with symptom management postoperatively with this, she will call her orthopedic surgeon tomorrow (Dr. Vignesh Hightower per patient). Patient states appreciation and agreement. - Vital Signs Vital signs: Temp Pulse Resp BP Pulse Ox 98.9 F 80 16 115/75 97 02/16/20 22:48 02/16/20 22:48 02/16/20 22:48 02/16/20 22:48 02/16/20 22:48 Discharge - Discharge Clinical Impression: Left hand pain, Post-op pain Condition: Stable Disposition: HOME, SELF-CARE Additional Instructions: You have been prescribed pain medication for your postoperative pain, please call and inform your orthopedic surgeon tomorrow. Recommend that along with the pain medication you take an [id number] stool softener such as MiraLAX to avoid constipation while taking this. Follow-up with your surgeon for additional management, and return for any concerning symptoms including severe swelling, change in color of the fingers, severe worsening pain, or any other concerning symptoms. Prescriptions: Oxycodone HCl/Acetaminophen [Percocet 5-325 mg Tablet] 1 - 2 tab PO TID PRN #15 tablet PRN Reason:
[2020-02-17] MEDS ORDERED: ONDANSETRON 4 MG TAB.RAPDIS PO ONE (00:35)
[2020-02-17] MEDS ORDERED: OXYCODONE-ACETAMINOPHEN 5-325 MG TABLET PO ONE ×2 (00:35→01:26)
[2020-02-17 02:05] VITALS: BP 108/58
== END 2020-02-17 01:53 | disposition home or self-care (01) ==
LOC: ER 22:40
DX: G89.18 Other acute postprocedural pain (principal); M79.642 Pain in left hand; F17.200 Nicotine dependence, unspecified, uncomplicated; Z88.6 Allergy status to analgesic agent; Z88.5 Allergy status to narcotic agent
CPT/HCPCS: 99283; A9270 ×2; S0119

== ENCOUNTER 2020-03-05 06:57 | Day surgery (SDC) | payer MEDICARE, OTHER ==
[2020-03-05] MEDS ORDERED: ONDANSETRON HCL INJ/PF 4 MG/2 ML SDV IV PRN (08:01)
[2020-03-05 10:47] VITALS: BP 86/57
--- NOTE | 2020-03-05 13:36 | Operative Report ---
Operative Report DATE OF SURGERY: 03/05/20 Operative Report: The risk, benefits and alternatives of the procedure including the risk of bleeding, perforation requiring surgery have been explained to the patient in detail and informed consent has been obtained. The patient is placed in the left, lateral decubital position. Timeout was called. Propofol medication is administered. Rectal examination is done which did not reveal any masses, tears or fissures. An Olympus videoscope was introduced into the patient's rectum. Scope was then carefully advanced all the way to the cecum. Cecum was identified by the usual anatomical landmarks including the ileocecal valve as well as the appendiceal office. Photodocumentation is obtained. Scope was then sequentially pulled back via the various segments of the colon including the ascending colon, hepatic flexure, transverse colon, splenic flexure, descending colon finding to the rectosigmoid portions of the colon. Retroflexion maneuvers performed. PREOPERATIVE DIAGNOSIS: Change in bowel habits POSTOPERATIVE DIAGNOSIS: Good colon prep. Bowel inflammation noted on the right-hand side of the colon status post biopsy. Previous rectal anastomosis looking normal. Internal hemorrhoids OPERATION: Colonoscopy with biopsy SURGEON: TAVO DOUGLAS ANESTHESIA: LMAC TISSUE REMOVED OR ALTERED: As noted above. COMPLICATIONS: None. ESTIMATED BLOOD LOSS: None. INTRAOPERATIVE FINDINGS: As noted above. PROCEDURE: Patient tolerated the procedure well. No immediate postprocedure complications are noted. Patient is discharged in good condition. Discharge date 03/05/2020. Discharge diet: Regular. Discharge activity: Regular. 2 to 3-week follow-up to discuss findings. Patient is instructed to call the office or proceed to the emergency room should there be any further problems or questions. Wait on the pathology.
== END 2020-03-05 10:10 | disposition home or self-care (01) ==
LOC: OROUT 06:57
PROVIDERS: ATTEND Internal Medicine Gastroenterology
DX: K52.9 Noninfective gastroenteritis and colitis, unspecified (principal); K64.8 Other hemorrhoids; F17.210 Nicotine dependence, cigarettes, uncomplicated; I25.2 Old myocardial infarction; I50.9 Heart failure, unspecified; Z79.899 Other long term (current) drug therapy; Z88.5 Allergy status to narcotic agent
CPT/HCPCS: 45380; 811; 88305

== ENCOUNTER → 2020-03-15 | Outpatient (CLI) | payer MEDICARE, OTHER ==
--- NOTE | 2020-03-15 12:41 | RADIOLOGY REPORT (SQ) ---
EXAM DESCRIPTION: NM GASTRIC EMPTYING STUDY IMAGES COMPLETED DATE/TIME: 03/15/2020 12:29 pm REASON FOR STUDY: BILIOUS VOMITING R11.14 BILIOUS VOMITING COMPARISON: None. RADIONUCLIDE AND DOSE: 2 millicuries Tc-99m Sulfur Colloid. A wide variety of solid foods have been used. The route of agent administration: Oral. TECHNIQUE: 1 minute serial static imaging performed at time of meal, 1 hour, 2 hours, 3 hours, and 4 hours as needed. Once stomach reaches 90% emptying, the test is complete. Image intensity values pl otted with respect to time with linear regression algorithm. LIMITATIONS: None. FINDINGS: Patient was observed for 4 hours. Immediate post meal serves as baseline. Gastric emptying at 30 minutes was 15.1%. Gastric emptying at 60 minutes was 30.1% Gastric emptying at 90 minutes was 45.2%. Gastric emptying at 120 minutes was 60.2%. Gastric emptying at 240 minutes was 100%. Normal values: 60 minutes: 30-90% retained. If less than 30%, abnormally rapid emptying. If greater than 90%, delaye d gastric emptying. 120 minutes: <60% retained. If greater than 60%, delayed gastric emptying. 240 minutes: <10% retained. If greater than 10%, delayed gastric emptying. IMPRESSION: NORMAL GASTRIC EMPTYING. TECHNICAL DOCUMENTATION: JOB ID: [id number] 2010 [employer]- All Rights Reserved rev Reading location - IP/workstation name: [email or web address]
== END ==
LOC: RAD 07:41
PROVIDERS: ATTEND Internal Medicine Gastroenterology
DX: R11.14 Bilious vomiting (principal)
CPT/HCPCS: 78264; A9541

== ENCOUNTER → 2020-04-07 | Outpatient (CLI) | payer MEDICARE, OTHER ==
--- NOTE | 2020-04-07 14:41 | RADIOLOGY REPORT (SQ) ---
EXAM DESCRIPTION: MRI CERVICAL SPINE WITHOUT IMAGES COMPLETED DATE/TIME: 04/07/2020 1:28 pm REASON FOR STUDY: M54.2 CERVICALGIA M54.2 CERVICALGIA COMPARISON: None. TECHNIQUE: Sagittal and Axial imaging includes T1, T2, STIR and gradient echo sequences. LIMITATIONS: None. FINDINGS: ALIGNMENT: Reversal of cervical curvature due to muscle spasm VERTEBRAE: Intact. BONE MARROW: Normal. No marrow replacement or reactive changes. DISCS: Diffuse decreased T2 weighted intervertebral disc signal. HARDWARE: None in the spine. CORD AND BASE OF BRAIN: Normal in size and signal intensity. SOFT TISSUES: No soft tissue masses. C1-C2: No significant spinal stenosis. C2-C3: No significant spinal stenosis or exit foraminal stenosis. C3-C4: Broad diffuse posterior disc bulging partially effaces the ventral thecal sac and abuts the ve ntral cord without cord flattening. No significant central stenosis. Moderate right, high-grade lef t foraminal narrowing from facet and uncovertebral hypertrophy. C4-C5: Minimal diffuse posterior disc bulge and bony spurring partly effaces the ventral thecal sac a nd abuts the ventral cord without cord flattening or abnormal intrinsic cord signal. No significant central canal or right foraminal narrowing. High-grade left foraminal stenosis from facet and uncove rtebral hypertrophy. C5-C6: Mild diffuse posterior disc bulge and bony spurring effaces the ventral thecal sac and abuts t he ventral cord without cord flattening or abnormal intrinsic cord signal. No significant central ca nal narrowing. No foraminal stenosis C6-C7: Broad diffuse posterior disc bulge and bony spurring partially effaces the ventral thecal sac and abuts the ventral cord without cord flattening. No abnormal intrinsic cord signal. Mild central canal narrowing. Mild right, moderate left foraminal narrowing from facet and uncovertebral hypertr ophy. C7-T1: No significant spinal stenosis or exit foraminal stenosis. UPPER THORACIC: Incompletely imaged. No significant spinal stenosis or exit foraminal stenosis. OTHER: No other significant finding. IMPRESSION: Mild diffuse degenerative disc changes with multilevel foraminal stenosis TECHNICAL DOCUMENTATION: JOB ID: [id number] 2010 [employer]- All Rights Reserved Reading location - IP/workstation name: [email or web address]
== END ==
LOC: RAD 12:06
PROVIDERS: ATTEND Physician Assistant
DX: M50.323 Other cervical disc degeneration at C6-C7 level (principal); M48.02 Spinal stenosis, cervical region
CPT/HCPCS: 72141